=== PATIENT | male | born 1950 | race Caucasian/White ===

== ENCOUNTER 2017-09-29 04:08 | Emergency (ER) | payer OTHER, SELFPAY ==
[2017-09-29] VITALS (21 sets, daily range): BP systolic 84–145; BP diastolic 63–100; PULSE 77–133; RESP 13–106; TEMP 36.6; O2SAT 96–99; BMI 34.5
--- NOTE | 2017-09-29 04:17 | DI.RAD.S_ITS ---
PROCEDURE: XR CHEST 1V INDICATIONS: Chest pain TECHNIQUE: One view of the chest was acquired. COMPARISON: [facility], , CHEST 1 VIEW, 07/28/2017, 13:54. [facility], , CHEST 2 VIEW, 09/07/2012, 16:29. [facility], , CHEST 2 VIEW, 05/22/2009, 10:35. FINDINGS: Surgical changes and devices: Sternotomy wires, presumed prior CABG. Lungs and pleura: No pleural effusions or pneumothorax. Lungs are mildly abnormal considering reduced inspiratory volume with interstitial prominence previously present and possibly related to prior smoking. Mediastinum: Mediastinal contours appear normal. Heart size is normal. Bones and chest wall: No suspicious bony lesions. Overlying soft tissues appear unremarkable. IMPRESSION: Mild interstitial prominence, reduced inspiration, no definite pneumonia found. Prior CABG. Dictated by: Shahzad Toscano M.D. on 09/29/2017 at 9:08 Approved by: Shahzad Toscano M.D. on 09/29/2017 at 9:09
[2017-09-29] MEDS: NITROGLYCERIN 0.4 MG SL TAB SL ×2 (04:21→06:53)
--- NOTE | 2017-09-29 04:27 | ED.CHESTPAIN ---
HPI - Chest Pain General Chief Complaint: Chest Pain Stated Complaint: CHEST PAIN Time Seen by Provider: 09/29/17 04:17 Source: patient, family, RN notes reviewed and old records reviewed Mode of arrival: ambulatory Limitations: no limitations History of Present Illness HPI narrative: Patient is a 67-year-old male with known coronary artery disease presenting with chest pain. He was released from [facility] on 09/25/2017 where he was found to have nonsustained V-tach. Heart catheterization revealed occlusion of all [place] arteries and 2 venous grafts. His metoprolol was increased 25 mg twice a day an indoor was started. It was recommended that he participate in cardiac rehab for 3 months and then re-evaluation and he if no improvement may require on evaluation at [place]. This evening he woke up with severe left-sided chest pain. He denies any heart palpitations or shortness of breath. He is found to be in AFib with heart rate of 140. MD complaint: chest pain Related Data Home Medications Medication Instructions Recorded Confirmed calcipotriene-betamethasone 1 oin TP #0 03/18/11 [Taclonex] Previous Rx's Medication Instructions Recorded niacin 500 mg PO HS #30 07/07/12 finasteride 5 mg PO QDAY #90 tab 02/13/16 tamsulosin [Flomax] 0.4 mg PO QDAY #90 cap 02/13/16 sucralfate 1 gm PO ACHS #120 tab 06/26/16 lisinopril [Zestril] 10 mg PO QDAY #90 tab 07/02/17 atorvastatin 80 mg PO HS #90 tab 07/30/17 clopidogrel 75 mg PO QDAY #90 tab 07/30/17 terazosin 10 mg PO QDAY #90 cap 07/30/17 Allergies Allergy/AdvReac Type Severity Reaction Status Date / Time No Known Drug Allergies Allergy Verified 09/29/17 04:27 Review of Systems Review of Systems All systems reviewed & are unremarkable except as noted in HPI and below Constitutional Denies chills, Denies fever(s), Denies lethargy and Denies weakness Cardiovascular Reports chest pain, Denies dyspnea and Denies dyspnea on exertion Respiratory Denies cough, Denies dyspnea, Denies dyspnea on exertion and Denies wheezing Gastrointestinal Gastrointestinal: Denies abdominal pain, Denies change in bowel habits, Denies diarrhea, Denies nausea and Denies vomiting Musculoskeletal Denies back pain, Denies muscle weakness, Denies numbness and Denies tingling Neurologic Denies numbness, Denies tingling and Denies weakness Allergic/Immunologic Denies wheezing PFSH Surgical History Status post coronary artery bypass graft Status post knee surgery Status post tonsillectomy and adenoidectomy Social History Smoking Status: Current some day smoker Exam Const General: cooperative and well developed Nutritional Appearance: well nourished Orientation: alert, awake, oriented x3 and not confused [facility] Head: normocephalic and atraumatic Ears: external ears normal and TM's normal bilaterally Nose: external nose normal and No nasal discharge Face and sinus: sinuses nontender, face symmetric, no sinus tenderness and No dry mucous membranes Mouth: oral mucosae normal and moist mucous membranes Teeth and gingiva: dentition normal Throat: tonsils normal and uvula midline Resp Effort & Inspection: normal respiratory effort, able to speak in complete sentences, no respiratory distress and no use of accessory muscles Auscultation: clear to auscultation bilaterally, no rales, no rhonchi and no wheezes Cardio Rate: tachycardic Rhythm: abnormal rhythm and abnormal rhythm irregularly irregular GI Inspection: non-distended Palpation: soft, no hepatosplenomegaly, No guarding, No pulsatile mass and No tender Auscultation: normal bowel sounds Skin General: no rashes or lesions noted, No jaundice and No petechiae Neuro General: alert, oriented x3, gait normal and no focal motor deficits Cranial Nerves: CN's II-XI intact bilaterally Speech: speech normal Motor: strength 5/5 throughout Sensory Exam: no sensory deficits noted Extrem General: full ROM, no clubbing, cyanosis or edema, no pedal edema and no calf tenderness MDM - Chest Pain MDM Narrative Medical decision making narrative: Patient has known coronary artery disease with new onset atrial fibrillation, he also had mildly elevated troponin which may be from rapid rate versus coronary artery disease. He continues to have intermittent chest pain but is seemed to be associated with elevated heart rate. Dr. Hancock has graciously accepted him back at [facility]. Recommends loading with amiodarone and heparin drip for rate control. Lab Data Attestation: I reviewed the patient's lab results. Result diagrams: 09/29/17 04:25 09/29/17 04:25 Lab Results 09/29/17 09/29/17 09/29/17 Range/Units 04:25 04:25 04:25 WBC 4.9 (4.5-11.0) X10^3/uL RBC 5.33 (4.5-5.9) X10^6/uL Hgb 16.0 (13.5-17.5) g/dL Hct 47.5 (41-53) % MCV 89.2 (80-100) fL MCH 30.0 (26-34) PG MCHC 33.7 (30-36) % RDW 14.0 (11.6-14.8) % Plt Count 102 L (150-400) X10^3/uL Neut % (Auto) 42.4 L (50-75) % Lymph % (Auto) 44.4 H (25-40) % Reynolds % (Auto) 9.2 (3-14) % Eos % (Auto) 2.9 (2-4) % Baso % (Auto) 1.1 (0-2) % Neut # (Auto) 2100 L (6122-7212) /uL PT 11.5 (10.1-12.7) SECONDS INR 1.1 (0.9-1.3) APTT 31 (26.4-36.2) SECONDS Sodium 138 (137-145) mmol/L Potassium 4.7 (3.4-5.1) mmol/L Chloride 107.0 (98-107) mmol/L Carbon Dioxide 21.0 L (22-32) mmol/L BUN 25.0 H (9-20) mg/dL Creatinine 1.20 (0.66-1.25) mg/dL Estimated GFR > 60.0 (>60) mL/min BUN/Creatinine Ratio 20.8 (6-22) Glucose 125 H (80-110) mg/dL Calcium 8.7 (8.4-10.2) mg/dL Total Bilirubin 1.3 (0.2-1.3) mg/dL AST 36 (17-59) IU/L ALT 60 (21-72) IU/L Alkaline Phosphatase 42 (38-126) U/L Total Creatine Kinase 78 (55-170) U/L Troponin I 0.124 H* (0.01-0.034) ng/mL B-Natriuretic Peptide 137.0 (<100) Total Protein 6.4 (6.3-8.2) g/dL Albumin 3.7 (3.5-5.0) g/dL Globulin 2.7 (1.7-4.1) g/dL Albumin/Globulin Ratio 1.4 (1.0-2.8) Lipase 165 (23-300) U/L Imaging Data Chest x-ray: My impression: No acute cardiopulmonary process ECG Data Attestation: I personally reviewed and interpreted this ECG as follows: Prior ECG tracings: available for review Interpretation: EKG 1.: AFib with RVR rate 130 previous EKGs show sinus rhythm EKG 2. AFib rate [address] changes AFib rate [address] changes Course Orders Ordered: ED Orders 09/29/17 EKG-12 Lead Routine 09/29/17 04:17 XR chest 1V Stat EKG-12 Lead Stat 09/29/17 04:25 B Type Natriuretic Peptide Stat Complete Blood Count AUTO DIFF Stat Comprehensive Metabolic Panel Stat Lipase Stat Partial Thromboplastin Time Stat Prothrombin Time INR Stat Troponin with CK Cardiac Panel Stat Sodium Chloride (Normal Saline 0.9%) 1,000 mls @ 150 mls/hr IV CONT MANGO Last Admin: 09/29/17 04:42 Dose: 150 mls/hr Nitroglycerin (Nitrostat) 0.4 mg SL [id number] PRN PRN Reason: Chest Pain Last Admin: 09/29/17 06:53 Dose: 0.4 mg Admin: 09/29/17 04:21 Dose: 0.4 mg Discontinued Medications Aspirin (Aspirin Chew) 324 mg PO NOW ONE Stop: 09/29/17 04:18 Last Admin: 09/29/17 04:28 Dose: 324 mg Diltiazem HCl (Cardizem) 20 mg IV NOW ONE Stop: 09/29/17 04:22 Last Admin: 09/29/17 04:28 Dose: 20 mg Metoprolol Tartrate (Lopressor) 25 mg PO NOW ONE Stop: 09/29/17 07:23 Last Admin: 09/29/17 07:32 Dose: 25 mg Consultations Consultation #1: Dr. Strange, hospitalist based on patient's history recommends transferring patient to higher level of care Time: 05:46 Consultation #2: Cardiolgy Dr. Hancock has been updated patient's symptoms and test. Agrees with transfer to [facility]. Recommends talking with hospitalist Time: 06:33 Last Vital Signs Temp 97.8 F 09/29/17 04:34 Pulse 122 H 09/29/17 06:48 Resp 14 09/29/17 06:48 BP 121/77 H 09/29/17 06:48 Pulse Ox 98 09/29/17 06:48 Discharge Plan Departure Patient Disposition: [facility] Clinical Impression: Atrial fibrillation, Elevated troponin Prescriptions: No Action calcipotriene-betamethasone [Taclonex] 60 GM ointment 1 oin TP Qty: 0 RF: 0 niacin 500 MG capsule, extended release 500 mg PO HS Qty: 30 RF: 2 tamsulosin [Flomax] 0.4 MG capsule,extended release 24hr 0.4 mg PO QDAY Qty: 90 RF: 1 finasteride 5 MG tablet 5 mg PO QDAY Qty: 90 RF: 0 sucralfate 1 GM tablet 1 gm PO ACHS Qty: 120 RF: 3 lisinopril [Zestril] 10 MG tablet 10 mg PO QDAY Qty: 90 RF: 0 atorvastatin 80 MG tablet 80 mg PO HS Qty: 90 RF: 0 terazosin 10 MG capsule 10 mg PO QDAY Qty: 90 RF: 0 clopidogrel 75 MG tablet 75 mg PO QDAY Qty: 90 RF: 0
[2017-09-29] MEDS: ASPIRIN 81 MG TAB 324 MG PO (04:28)
[2017-09-29] MEDS: dilTIAZem 25 MG/5 ML SDV 20 MG IV (04:28)
[2017-09-29 04:30] LABS: Add Manual Diff / Slide Review NO; Basophils Percent Auto 1.1 % (0-2); Eosinophils Percent Auto 2.9 % (2-4); Hematocrit 47.5 % (41-53); Lymphocytes Percent Auto 44.4 % (25-40); Mean Corpuscular HGB Conc 33.7 % (30-36); Mean Corpuscular Volume 89.2 fL (80-100); Monocytes Percent Auto 9.2 % (3-14); Neutrophils Absolute Auto 2100 /uL (3000-5900); Neutrophils Percent Auto 42.4 % (50-75); Platelet Count 102 X10^3/uL (150-400); Red Blood Cell Count 5.33 X10^6/uL (4.5-5.9); White Blood Cell Count 4.9 X10^3/uL (4.5-11.0)
[2017-09-29 04:35] LABS: INR 1.1 (0.9-1.3); Prothrombin Time 11.5 SECONDS (10.1-12.7)
[2017-09-29 04:37] LABS: PTT Partial Thromboplastin Tim 31 SECONDS (26.4-36.2)
[2017-09-29 04:39] LABS: Alanine Aminotransferase 60 IU/L (21-72); Albumin 3.7 g/dL (3.5-5.0); Albumin Globulin Ratio 1.4 (1.0-2.8); Alkaline Phosphatase 42 U/L (38-126); Aspartate Aminotransferase 36 IU/L (17-59); BUN Creatinine Ratio 20.8 (6-22); Bilirubin Total 1.3 mg/dL (0.2-1.3); Calcium 8.7 mg/dL (8.4-10.2); Creatine Kinase 78 U/L (55-170); Estimated Glomerular Filt Rate > 60.0 mL/min (>60); Globulin 2.7 g/dL (1.7-4.1); Glucose 125 mg/dL (80-110); HEMOLYSIS 42 (0-50); Lipase 165 U/L (23-300); Potassium 4.7 mmol/L (3.4-5.1); Sodium 138 mmol/L (137-145); Total Protein 6.4 g/dL (6.3-8.2)
[2017-09-29] MEDS: SODIUM CHLORIDE 0.9% 1,000 ML 150 ML IV (04:42)
[2017-09-29 05:13] LABS: Troponin I 0.124 ng/mL (0.01-0.034)
[2017-09-29] MEDS: METOPROLOL 25 MG TABLET PO (07:32)
--- NOTE | 2017-09-29 07:57 | PC.NURSE ---
S/W MINOR Kirby SUP. at [facility]. There is a room and Hospitalist will call for dr to when out of daily meeting. Expl PT was just DC'D from their Hosp Wednesday and hospitalist will have information on this PT.
[2017-09-29] MEDS: HEPARIN DRIP 25,000 UNIT/500 ML IV.SOLN 27.76 UNIT IV (08:14)
[2017-09-29] MEDS: AMIODARONE 150 MG/100 ML PIGGYBACK 600 MG IV (08:14)
[2017-09-29] MEDS: MORPHINE 4 MG/ML INJ IV (08:19)
--- NOTE | 2017-09-29 08:42 | PC.NURSE ---
PT with is called and updated by Vargas.
--- NOTE | 2017-09-29 10:53 | PC.NURSE ---
Attempt to call report to Mandeep at [facility]. They will return call and were made aware that PT was close to being en route
== END 2017-09-29 11:08 | disposition short-term general hospital (02) ==
PROVIDERS: Emergency Provider Emergency Medicine; Family Provider Family Medicine; PCP Family Medicine
DX: I48.91 Unspecified atrial fibrillation (principal); R74.8 Abnormal levels of other serum enzymes
CPT/HCPCS: 36591; 71045; 80053; 82550; 82553; 83690; 83880; 84484; 85025; 85610; 85730; 93005; 93041; 99285; J0282; J1644; J2270

== ENCOUNTER → 2017-10-20 12:34 | Outpatient (CLI) | payer OTHER, SELFPAY ==
--- NOTE | 2017-10-26 09:21 | PM.PFT.1 ---
Pulmonary Function Test Referral & Results Date Patient Seen: 10/20/17 Requesting provider: Macho Vicente Results: The spirometry demonstrates an FVC of 4.61 L which is 94% of predicted. The FEV1 was measured at 3.71 L which is 101% of predicted. The FEV1/FVC ratio was 80 which is 108% of predicted. No bronchodilator was administered Lung volumes show an SVC of 4.80 L which is 97% of predicted. The diffusing capacity was measured at 28.98 which is 82% of predicted. The maximum voluntary ventilation was normal. Interpretation: Patient's spirometry is normal There may be a minimal reduction in diffusing capacity, although this may also be considered normal. Clinical correlation suggested
== END ==
PROVIDERS: Family Provider Family Medicine; PCP Family Medicine; Visit Provider Internal Medicine Cardiovascular Disease
DX: R06.09 Other forms of dyspnea (principal)
CPT/HCPCS: 94010; 94726; 94729

== ENCOUNTER 2017-12-22 08:58 | Day surgery (SDC) | payer OTHER, SELFPAY ==
--- NOTE | 2017-12-22 | PATH_ITS ---
[facility] Accession Number: [id number] . 01 Material submitted: . PART A: ASCENDING COLON POLYPS PART B: TRANSVERSE COLON POLYPS PART C: LEFT COLON POLYP PART D: SIGMOID COLON POLYP . 02 Diagnosis: A. Ascending Colon Polyps: Fragment of tubular adenoma and fragments of colonic mucosa with no diagnostic abnormality. . B. Transverse Colon Polyps: Fragments of tubular adenoma and fragment of colonic mucosa with no diagnostic abnormality. . C. Left Colon Polyp: Colonic mucosa with no diagnostic abnormality, consistent with polypoid redundancy. Negative for serrated lesion, dysplasia or malignancy. . D. Sigmoid Colon Polyp: Hyperplastic polyp. [facility]/12/23/2017 . 02 Electronically signed: . Dioni Lora MD, PhD, Pathologist NPI- [id number] . 01 Gross description: . Received four formalin-filled containers, each labeled with the patient's name: . A. In a container labeled ascending colon polyp, the specimen consists of four 0.1-0.3 cm portions of tissue, entirely submitted in cassette A. B. In a container labeled transverse colon polyps, the specimen consists of three 0.1-0.3 cm portions of tissue, entirely submitted in cassette B. C. In a container labeled left colon polyp, the specimen consists of a 0.1 cm portion of tissue, entirely submitted in cassette C. D. In a container labeled sigmoid colon polyp, the specimen consists of a 0.3 cm portion of tissue, entirely submitted in cassette D. ([id number]) /FRR . 02 Pathologist provided ICD-10: D12.2, D12.3, K63.5 . 02 CPT . 955837, 463642, 529343, 850406 Performed at: [address] [place] [address] [place] [address], [place], [place] [id number] MD Arias Ngo MD Phone: [phone] Performed at: [address] [facility] [address] [place], [place] [id number] MD Simone Holman MD Phone: [phone]
[2017-12-22 09:20] VITALS: BP 105/77; PULSE 90; RESP 16; TEMP 36.2; O2SAT 96; BMI 34.7
[2017-12-22] MEDS: SODIUM CHLORIDE 0.9% 1,000 ML 21 ML IV (09:20)
--- NOTE | 2017-12-22 10:12 | PM.HP.1 ---
History of Present Illness Date Patient Seen: 12/22/17 Time Patient Seen: 10:12 Chief complaint: colonoscopy [id number] [phone] Narrative: Mr. Flaherty is a 67-year-old male who presented for evaluation prior to colorectal cancer screening. He has a history of severe coronary artery disease with atrial fibrillation with a rapid ventricular response and a history of coronary artery disease status post coronary bypass grafting with a history of unstable angina. He has had his medications adjusted is doing better. Due to his history we decided to do a: Garde test which was positive and therefore now colonoscopies being performed. He has had no further chest pain since his admissions in September. Dr. Vicente as given clearance for him to go off his Eliquis. It has also been suggested he go off his aspirin. Both of these been held for at least 2 days. Patient History Medical History Coronary artery disease involving lummi coronary artery of lummi heart without angina pectoris (Chronic 12/02/15) Essential hypertension (Chronic 12/02/15) Pure hypercholesterolemia (Chronic 12/02/15) Carotid artery disease (Chronic Unknown) Disc degeneration (Chronic ~2003) History of diverticulitis (Chronic Unknown) Hyperlipidemia (Chronic Unknown) Hypertension (Chronic Unknown) Nephrolithiasis (Chronic Unknown) Psoriasis (Chronic Unknown) Atrial fibrillation (Inactive) Surgical History Status post coronary artery bypass graft Status post knee surgery Status post tonsillectomy and adenoidectomy Family & Social History Social History: household members spouse Tobacco & Substance use: Smoking Status Former smoker Substance Use Type marijuana Meds Home Medications Medication Instructions Recorded Confirmed Type calcipotriene-betamethasone 1 oin TP PRN PRN #0 03/18/11 12/22/17 History [Taclonex] niacin 500 mg PO HS #30 07/07/12 12/22/17 Rx finasteride 5 mg PO QDAY #90 tab 02/13/16 12/22/17 Rx tamsulosin [Flomax] 0.4 mg PO QDAY #90 cap 02/13/16 12/22/17 Rx atorvastatin 80 mg PO DAILY 09/29/17 12/22/17 History docusate sodium 100 mg PO BID 09/29/17 12/22/17 History isosorbide mononitrate 30 mg PO DAILY 09/29/17 12/22/17 History nicotine 21 mg TOPICAL DAILY 09/29/17 12/22/17 History terazosin 10 mg PO QHS 09/29/17 12/22/17 History triamcinolone acetonide 1 applic TOPICAL PRN PRN 09/29/17 12/22/17 History metoprolol succinate ER 25 mg 25 mg PO DAILY #90 tab 10/05/17 12/22/17 Rx tablet,extended release 24 hr sucralfate 1 gram tablet 1 gram PO TID #90 tab 10/15/17 12/22/17 Rx lisinopril 10 mg tablet 10 mg PO DAILY #30 tab 11/26/17 12/22/17 Rx Allergies Allergy/AdvReac Type Severity Reaction Status Date / Time No Known Drug Allergies Allergy Verified 12/22/17 09:19 Exam Vital Signs (past 8 hours): - 12/22/17 09:20 Temperature 97.2 F L Pulse Rate 90 Respiratory Rate 16 Blood Pressure 105/77 Pulse Oximetry 96 Oxygen Delivery Method Room Air Assessment & Plan Plan: Assessment/Plan Narrative: Assessment History of severe coronary artery disease with positive Cologuard test. Need for colonoscopy I have told him his that he has had a significant we increased risk for colonoscopy with given his underlying issues but we can't ignore the Cologuard test either. He will therefore a colonoscopy performed today. Risks, benefits, alternatives have been explained. I told him that if he is having a very difficult colonoscopy I would probably not push through given the possibility of causing a arrhythmia or hypotension.
--- NOTE | 2017-12-22 10:17 | P.HP_ITS ---
History of Present Illness Date Patient Seen: 12/22/17 Time Patient Seen: 10:12 Chief complaint: colonoscopy [id number] [phone] Narrative: Mr. Flaherty is a 67-year-old male who presented for evaluation prior to colorectal cancer screening. He has a history of severe coronary artery disease with atrial fibrillation with a rapid ventricular response and a history of coronary artery disease status post coronary bypass grafting with a history of unstable angina. He has had his medications adjusted is doing better. Due to his history we decided to do a: Garde test which was positive and therefore now colonoscopies being performed. He has had no further chest pain since his admissions in September. Dr. Vicente as given clearance for him to go off his Eliquis. It has also been suggested he go off his aspirin. Both of these been held for at least 2 days. Patient History Medical History Coronary artery disease involving wainwright coronary artery of wainwright heart without angina pectoris (Chronic 12/02/15) Essential hypertension (Chronic 12/02/15) Pure hypercholesterolemia (Chronic 12/02/15) Carotid artery disease (Chronic Unknown) Disc degeneration (Chronic ~2003) History of diverticulitis (Chronic Unknown) Hyperlipidemia (Chronic Unknown) Hypertension (Chronic Unknown) Nephrolithiasis (Chronic Unknown) Psoriasis (Chronic Unknown) Atrial fibrillation (Inactive) Surgical History Status post coronary artery bypass graft Status post knee surgery Status post tonsillectomy and adenoidectomy Family & Social History Social History: household members spouse Tobacco & Substance use: Smoking Status Former smoker Substance Use Type marijuana Meds Home Medications Medication Instructions Recorded Confirmed Type calcipotriene-betamethasone 1 oin TP PRN PRN #0 03/18/11 12/22/17 History [Taclonex] niacin 500 mg PO HS #30 07/07/12 12/22/17 Rx finasteride 5 mg PO QDAY #90 tab 02/13/16 12/22/17 Rx tamsulosin [Flomax] 0.4 mg PO QDAY #90 cap 02/13/16 12/22/17 Rx atorvastatin 80 mg PO DAILY 09/29/17 12/22/17 History docusate sodium 100 mg PO BID 09/29/17 12/22/17 History isosorbide mononitrate 30 mg PO DAILY 09/29/17 12/22/17 History nicotine 21 mg TOPICAL DAILY 09/29/17 12/22/17 History terazosin 10 mg PO QHS 09/29/17 12/22/17 History triamcinolone acetonide 1 applic TOPICAL PRN PRN 09/29/17 12/22/17 History metoprolol succinate ER 25 mg 25 mg PO DAILY #90 tab 10/05/17 12/22/17 Rx tablet,extended release 24 hr sucralfate 1 gram tablet 1 gram PO TID #90 tab 10/15/17 12/22/17 Rx lisinopril 10 mg tablet 10 mg PO DAILY #30 tab 11/26/17 12/22/17 Rx Allergies Allergy/AdvReac Type Severity Reaction Status Date / Time No Known Drug Allergies Allergy Verified 12/22/17 09:19 Exam Vital Signs (past 8 hours): - 12/22/17 09:20 Temperature 97.2 F L Pulse Rate 90 Respiratory Rate 16 Blood Pressure 105/77 Pulse Oximetry 96 Oxygen Delivery Method Room Air Assessment & Plan Plan: Assessment/Plan Narrative: Assessment History of severe coronary artery disease with positive Cologuard test. Need for colonoscopy I have told him his that he has had a significant we increased risk for colonoscopy with given his underlying issues but we can't ignore the Cologuard test either. He will therefore a colonoscopy performed today. Risks, benefits , alternatives have been explained. I told him that if he is having a very difficult colonoscopy I would probably not push through given the possibility of causing a arrhythmia or hypotension.
--- NOTE | 2017-12-22 10:38 | PM.OP.ENDO ---
Operative Date/Time/Diagnoses Date of procedure: 12/22/17 Time of procedure: 10:38 Pre-op diagnosis: See indication Procedure & Clinicians Study performed: Colonoscopy Same procedure as scheduled: Yes Indications: Cologuard positive Surgeon: Marc Campos Procedure Notes Procedure in detail: After informed consent was obtained the patient was placed in the left lateral decubitus position. The video colonoscope was introduced the rectum and slowly advanced to the cecum. Preparation was good. On slow withdrawal mucosa was carefully examined. Scope was removed. The patient tolerated the procedure well. Blood loss none. Of note was there was minimal bleeding with any biopsy or snare of polyps. Complications none Sedation Fentanyl 100 mcg Versed 5 mg IV titration Total sedation time 17 min Findings 1. Two 4-5 mm polyps were seen in the ascending colon. Both were Jumbo biopsied removed completely. 2. Three 3-5 mm polyps were seen in the transverse colon. All were Jumbo biopsied and removed completely 3. One polyp was seen in the left colon. This was 3 mm. This was Jumbo biopsied and removed completely. 4. One 8 mm sessile polyp was seen in the sigmoid colon which was cold snared and removed completely. 5. Extensive diverticulosis particularly in the sigmoid We will be in touch with Mr. Flaherty regarding has pathology but most likely will need follow-up studies in 3 years. Has concerns his anticoagulation I would restart him on aspirin immediately but have him hold his Eliquis for 4-5 days. Scope withdrawal time: Six Sedation minutes: 17
[2017-12-22] MEDS: fentaNYL 250 MCG/5 ML INJ IV (10:39)
[2017-12-22] MEDS: MIDAZOLAM 5 MG/5 ML VIAL IV (10:40)
[2017-12-22 10:45] VITALS: BP 106/70; PULSE 69; RESP 14; TEMP 36.4; O2SAT 96
[2017-12-22 10:56] VITALS: BP 108/71; PULSE 66; RESP 16; TEMP 36.2; O2SAT 96
--- NOTE | 2017-12-22 11:31 | P.OP.ENDO_ITS ---
Operative Date/Time/Diagnoses Date of procedure: 12/22/17 Time of procedure: 11:27 Pre-op diagnosis: See indications Procedure & Clinicians Study performed: Colonoscopy Same procedure as scheduled: Yes Indications: Positive fit test, personal history of colon polyps Surgeon: Marc Campos Procedure Notes Procedure in detail: After informed consent was obtained the patient was placed in the left lateral decubitus position. The video colonoscope was introduced to the rectum and slowly advanced to the cecum. On slow withdrawal mucosa was carefully examined. Scope was removed and the patient tolerated the procedure well Blood loss none Complications none Sedation Versed 7 mg fentanyl 100 mcg Total sedation time 20 min Findings 1. 1 cm polyp at the cecal rim opposite the IC valve. Due to its sessile nature was injected with 2 cc of normal saline and raised prior to hot snare polypectomy. It was felt the areas removed completely though the margins were indistinct. Specimen was retrieved. 2. 2 cm mostly sessile polyp in the mid ascending colon. This was injected with 2 cc of normal saline to raise the base and then a hot snare polypectomy was performed in 2 pieces. The pieces were retrieved. The base was injected with 1 cc of spot. 3. Extensive diverticulosis particularly in the sigmoid colon 4. Otherwise negative colonoscopy to cecum Will await pathology results but Mr. Flaherty will almost certainly need follow- up colonoscopy in 6 months to evaluate the base of these larger polyps particularly the 1 in the mid ascending colon that has the tattoo. Further recommendations will follow. All
== END 2017-12-22 11:06 | disposition home or self-care (01) ==
PROVIDERS: Family Provider Family Medicine; PCP Family Medicine; Visit Provider Internal Medicine Gastroenterology
PROC: 0DJD8ZZ Inspection of Lower Intestinal Tract, Via Natural or Artificial Opening Endoscopic (ICD-10-PCS; CPT 45378; principal; 2017-12-22 10:00)
DX: K57.30 Diverticulosis of large intestine without perforation or abscess without bleeding (principal); I25.10 Atherosclerotic heart disease of native coronary artery without angina pectoris; I48.91 Unspecified atrial fibrillation; Z79.01 Long term (current) use of anticoagulants; D12.2 Benign neoplasm of ascending colon; D12.5 Benign neoplasm of sigmoid colon; K63.5 Polyp of colon
CPT/HCPCS: 45385; 45380; J2250; J3010

== ENCOUNTER → 2018-01-03 08:38 | Outpatient (CLI) | payer OTHER, SELFPAY ==
[2018-01-03 10:28] LABS: Alanine Aminotransferase 37 IU/L (21-72); Albumin 4.1 g/dL (3.5-5.0); Albumin Globulin Ratio 1.4 (1.0-2.8); Alkaline Phosphatase 42 U/L (38-126); Aspartate Aminotransferase 30 IU/L (17-59); BUN Creatinine Ratio 14.3 (6-22); Blood Urea Nitrogen 20 mg/dL (9-20); Calcium 9.5 mg/dL (8.4-10.2); Carbon Dioxide 27 mmol/L (22-32); Chloride 104 mmol/L (98-107); Estimated Glomerular Filt Rate 50.7 mL/min (>60); Globulin 2.9 g/dL (1.7-4.1); Glucose 120 mg/dL (80-110); HEMOLYSIS 24 (0-50); Potassium 4.6 mmol/L (3.4-5.1); Sodium 140 mmol/L (137-145)
[2018-01-03 10:55] LABS: Thyroid Stimulating Hormone 1.79 uIU/mL (0.47-4.68)
== END ==
PROVIDERS: Family Provider Family Medicine; PCP Family Medicine; Visit Provider Internal Medicine Cardiovascular Disease
DX: I48.0 Paroxysmal atrial fibrillation (principal); Z79.899 Other long term (current) drug therapy
CPT/HCPCS: 36415; 80053; 84443

== ENCOUNTER 2018-02-24 11:30 | Outpatient (RCR) | payer OTHER, SELFPAY ==
[2017-11-09 11:45] VITALS: BP 102/64; BP 106/62; BMI 35.2
--- NOTE | 2017-11-09 13:42 | CR.IEVALNOTE ---
10/14/17 unstable angina/cad/cabg hx 2002 with failed bypass 2 of 3 vessels CR Initial Assessment Report CR Cardiac Rehab Initial Assessment Start: 11/09/17 11:38 Freq: Status: Active Protocol: Document 11/09/17 11:45 CHERYLE (Rec: 11/09/17 12:09 CHERYLE [id number]) Cardiac Rehabilitation Exercise Risk Risk High % 40-45% 09/24/17 EF Comment: During stress test had non- prolonged v-tach run. Went into a-fib after. Subsequent cath revealed 2/3 previous bypasses had failed and there is widespread CAD. AICD No Pacemaker No Heart Rhythm Currently sr Left Arm Blood Pressure (90/60-120/80 mmHg) 106/62 Blood Pressure Method Manual Cuff/Auscultation Blood Pressure Position Sitting Right Arm Blood Pressure (90/60-120/80 mmHg) 102/64 Blood Pressure Method Manual Cuff/Auscultation Blood Pressure Position Sitting Bilateral Resting Heart Rate: 59 Pulse Assessment Method Pulse Ox/Monitor Cardiac Rehabilitation Exercise Fall Risk History of Falling (Immediate or No Previous) Secondary Diagnosis (More Than 2 Medical Yes Diagnoses) Ambulatory Aid None/bed rest/nurse assist IV/Heparin Lock No Gait/Transferring Normal/bedrest/immobile Mental Status Oriented to own ability Score Total 15 Risk Level Low Fall Risk Action Implement [place] Fall Risk Precautions Assistive Devices None Cardiac Rehabilitation Nutrition Evaluation Recent Lipid Blood Test Yes Date Blood Test Drawn 09/22/17 Total Cholesterol 170 Triglycerides 191 HDL 38 LDL 94 Lipid Medications Yes: crestor 40mg Goal for Lipids Decrease triglycerides, increase HDL Lipids Comment pt thinks med was recently changed History of Diabetes No Cardiac Rehabilitation Weight Management Plan Height 182.88 cm Weight 117.934 kg Body Mass Index (BMI) 35.2 Girth Measurement (in inches) (cm) 47.75 Patient Goal(s) Lose 1-2 of Girth Lose 5-10 lbs Body Weight BMI Goal of 19-25 Vitamins & Supplements No Use Rarely Amount Rarely Nutrition Evaluation Referral to Diabetes Education No Nurse/Patient Discussion Yes Patient Following Diet Plan No Patient's Nutritional Goals Continue healthier eating. Daughter has been harping on him about snacking and he states he has reduced processed foods. Education Primary Language [place] Hearing Ability Normal Education on Intake Chest Pain Short of Breath Headache Lightheaded or Dizzy Musculoskeletal Pain General Malaise Tobacco Use Former, Quit <6 Months Goal/Quit Date 09/15/17 Pack Per-Day History 1.5ppd x 40 years Tobacco Use History Discussion Ask Assess Advise Assist Tobacco Type Used cigarettes CR Smokeless Tobacco No Environmental Exposure at work, dust and asbestos Referred to Smoking Cessation Class No: is using the nicotine patch and is doing well CR Individual Education & Counseling Yes Educational Class Schedule Given No Hx Hypertension Yes Goal at goal Medications lisinopril, metoprolol Goal of BP <130/80 Yes HTN Education Discussion discussed effects of exercise on bp Medications Reconciled Yes CR Psychosocial Evaluation Goal wants to stick around to watch [employer] graduate HS Identifies Stressors heart Psych Consult No Discussion with Patient Yes Psychotropic Medications No PHQ9 Score 1 HQ Scoring Scale 0-4 = None PHQ >9 No PCP Notified No Comment says he's good....doesn't feel the need to stress about things Positive Support and family Situation at home with and father in law Marital Status Employment Status Retired Occupation / Employer Yes: [employer] Ready for Change Number 14 CR Psychosocial Eval Continued Sternotomy Incision n/a (old from 2002) Graft Site & Incision n/a Heart Murmur none auscultated Lung Sounds clear Edema none noted on intake. states some right ankle swelling occasionally Stress Management Class Yes Heart Disease & Emotion Film Yes Readiness Cooperative Patient's Story hx cabg x 3 2002. was having CP and went to ED. Re did echo and stress test and had non-prolonged VT run on TM. Hx afib after as well. Cath showed severe vessel disease and failure of 2 of 3 bypasses . Not surgically optimal so referred to CR for unstable angina Treatment Prescribed for Individual Yes Needs No Treatment Change Yes: Please Continue with Cardiopulmonary Rehabilitation as Ordered Date 11/09/17 Document 11/09/17 13:04 AA (Rec: 11/09/17 13:18 AA [id number]) Cardiac Rehabilitation Exercise Fall Risk Comment Blue Physioball with saucer against rail Bond Activity Status Index 7.59 Home Exercise No Mode Comment: yard work Duration Comment: 15min Frequency Comment: 2-2x/wk Symptoms: Abnormal Gait Back Pain Difficulty Walking Joint Pain Limited Range of Motion Muscle Cramps Muscle Weakness Radiating Pain into Limb Body Alignment Posture Forward Head Leaning Orthotic/Prosthetic Devices or Brace: No Comment PAD Exercise TM METS 3.95 Angina with Exercise 1 Exercise Tolerance Good Additional Comment L calf cramping and PAD pain limiting factor CR Pre Exercise Evaluation Orientation Self Pulse Check HAILEY PRE Scale Exercise Safety Equipment Orientation Warm Up/Cool Down Patient Short-term Goal(s) To be able to complete house work and home improvement projects in 6 weeks, by increasing stamina, endurance and balance/stability. Patient Prison Goal(s) Increase core strength, endurance and stamina to be able to complete 20 mins on TM 5x/wk at home, implement home exercise program in 12 weeks through CR. CR Exercises Prescription Exercise Duration (minutes) 20 METs (resistance level) 4 Frequency 2s/wk RPE 11-14 Exercise Duration (minutes) 20 METs (resistance level) 4 Frequency 2x/wk RPE 11-14 Comment tolerates incline over speed Pounds 5 Number of Reps 12 Number of Sets 2 Frequency 1x/wk RPE 11-15 Band Resistance 4 Number of Reps 12 Number of Sets 1 Exercise Tolerance Good Frequency 1x/wk RPE 11-15
[2017-12-08 15:47] VITALS: BP 118/62; RESP 16
--- NOTE | 2017-12-08 16:08 | CR.REVALNOTE ---
CR RE Assessment Report 10.14.17 UNSTABLE ANGINA, CABG 2002, FAILED BYPASS CR Cardiac Rehab Re-Assessment Start: 12/08/17 15:47 Freq: Status: Active Protocol: Document 12/08/17 15:47 [facility] (Rec: 12/08/17 15:56 [facility] [id number]) Cardiac Rehab Exercise Risk Re-Eval Dx: 10.14. UNSTABLE ANGINIA,CABG 2002, FAILED BYPASS Risk High Heart Rhythm NSR Left Arm Blood Pressure (90/60-120/80 mmHg) 118/62 Bilateral Resting Heart Rate: 68 Target Heart Rate: 119 Respiratory Rate (12-24 breaths/min) 16 Angina with Exercise NO Cardiac Rehab Nutrition Re-Eval Lipids Re-Drawn No History of Diabetes No Weight 117.934 kg Progress to Weight Goal NO PROGRESS. NOT AT A TIME FOR CHANGE Dietary Consult Yes Nurse/Patient Discussion Yes Nutrition Class Yes Dietary Goal verbalized by Patient WEIGHT LOSS BUT HE IS NOT SPECIFIC ON HOW HE WANTS TO Education Hypertension 118/62 Medications LISINOPRIL 10MG Education:Instruct ZULY REVIEWED DASH DIET Medication Reconciled DONE CR Psychosocial Re-Evaluation Progress to Goal PROGRESSING SLOWLY TO INCREASE METS WHICH MAKES HIM FEEL BETTER Stress Managed YES WITH FAMILY Psych Consult No Uses Stress Management Skills Yes Coping Techniques Yes Relaxation Techniques Yes Positive Support HIS FAMILY CR Psychosocial Provider Eval Treatment Prescribed for Individual Yes Needs No Treatment Change Yes: Please Continue with Cardiopulmonary Rehabilitation as Ordered Date 12/08/17 Document 12/08/17 15:58 AA (Rec: 12/08/17 16:05 AA [id number]) CR Lifestyle Re-Assessment Home Exercise Yes Mode Comment TM Walking Duration Comment 20 min Frequency Comment 4x/wk Achieved Exercise Re-Evaluation BioDex MET Goal 2.86 TM MET Goal 7.21 RPE 12 Weights 5 Bands 4 Equipment Goals TM 8.0 BD 3.5 Number/Value 6 LVL 5 Progress to Goal INCREASE TOLERATED % Improvement TM 101% BD 56% Short Term Goal acheived. Completed privacy fence project, pressure washed and painted. Will continue to do house and yard work. Half-Way Goal acheived. Is walking 20- 30 mins at home on TM on non CR days. Will continue to increase strength and endurance.
--- NOTE | 2017-12-16 14:11 | CR.EDUC ---
Current Diagnoses Presence of aortocoronary bypass graft (2002) Stable anginia Past Medical History (Last Reviewed 10/05/17 @ 09:30 by Chepe Smith MD) Coronary artery disease involving [place] coronary artery of [place] heart without angina pectoris (Chronic 12/02/15) Essential hypertension (Chronic 12/02/15) Pure hypercholesterolemia (Chronic 12/02/15) Carotid artery disease (Chronic Unknown) Disc degeneration (Chronic ~2003) History of diverticulitis (Chronic Unknown) Hyperlipidemia (Chronic Unknown) Hypertension (Chronic Unknown) Nephrolithiasis (Chronic Unknown) Psoriasis (Chronic Unknown) Atrial fibrillation (Inactive) Provider Summary Visit Care Team Role Provider Type Chepe Smith MD Family Provider Physician Primary Care Provider Specialty: Family Practice Address: [facility] [place], [address] Email: [email or web address] Richard Napoles MD Attending Provider Physician Specialty: Cardiology Address: [address] [place] [address], [id number] Email: CR Education Report CR Education Start: 11/09/17 11:38 Freq: Status: Active Protocol: Document 11/15/17 13:31 JCP (Rec: 11/15/17 13:32 JCP [id number]) CR EDUCATION Education FIRST FULL DAY IN CR. TOLERATED WELL. C/O PAIN IN CALF WHILE ON THE TM. STATES THIS IS ALSO A PROBLEM MOST DAYS. + FOR PAD. Document 11/24/17 13:37 CHERYLE (Rec: 11/24/17 13:38 CHERYLE [id number]) CR EDUCATION Education mrsa with cesar Document 11/25/17 15:59 CHERYLE (Rec: 11/25/17 16:06 CHERYLE [id number]) CR EDUCATION Education Pt is Dr. Vicente's pt and ended up finding this out later and spoke to Dr. Vicente directly. He wants pt to up isosorbide to 60mg QD. Ended up speaking to FLOWER Campoverde later and advised that I would call and notify patient. Spoke to Walter and advised him of the medication change and why it was being changed. He will start the new dose in the morning and knows to slow down should he get chest pain again. We advised that 3/10 should be the max and that we should be told immediately when it starts. Document 12/01/17 15:39 JC (Rec: 12/01/17 15:39 [facility] [id number]) CR EDUCATION Education ANTI INFLAMMATORY FOODS AND MEDITATION Document 12/08/17 12:04 JCP (Rec: 12/08/17 12:04 [facility] [id number]) CR EDUCATION Education MET WITH [address]
[2018-01-05 15:57] VITALS: BP 126/62
[2018-02-03 15:29] VITALS: BP 112/68
== END 2018-02-25 13:04 ==
LOC: CAR 11:30
PROVIDERS: Family Provider Family Medicine; PCP Family Medicine; Visit Provider Internal Medicine Interventional Cardiology
DX: Z95.1 Presence of aortocoronary bypass graft (principal)
CPT/HCPCS: 93798

== ENCOUNTER 2018-02-28 01:34 | Emergency (ER) | payer OTHER, SELFPAY ==
[2018-02-28 01:44] VITALS: BP 145/94; PULSE 75; RESP 16; TEMP 36.5; O2SAT 97; BMI 34.2
--- NOTE | 2018-02-28 01:57 | DI.RAD.S_ITS ---
PROCEDURE: XR CHEST 1V INDICATIONS: chest pain TECHNIQUE: One view of the chest was acquired. COMPARISON: [facility], , XR CHEST 1V, 09/29/2017, 4:30. [facility], CR, CHEST 1 VIEW, 07/28/2017, 13:54. [facility], CR, CHEST 2 VIEW, 09/07/2012, 16:29. FINDINGS: Surgical changes and devices: Sternotomy wires, reduced inspiratory volume Lungs and pleura: No pleural effusions or pneumothorax. Lungs are abnormal with a chronic interstitial prominence. Mediastinum: Mediastinal contours appear normal. Heart size is at the upper limits of normal. Bones and chest wall: No suspicious bony lesions. Bilateral acromioplasty is previously present. Overlying soft tissues appear unremarkable. IMPRESSION: Heart size at upper limits of normal but the inspiratory volume is reduced and the patient is somewhat lordotic in positioning. Sternotomy wires, presumed prior CABG, chronic interstitial prominence. Overall a definite acute source of chest pain is not seen. Dictated by: Shahzad Toscano M.D. on 02/28/2018 at 8:18 Approved by: Shahzad Toscano M.D. on 02/28/2018 at 8:19
[2018-02-28 02:14] VITALS: BP 122/87; PULSE 66
[2018-02-28] MEDS: NITROGLYCERIN 0.4 MG SL TAB SL (02:14)
--- NOTE | 2018-02-28 02:16 | ED_ITS ---
HPI - Chest Pain General Chief Complaint: Chest Pain Stated Complaint: chest pain Time Seen by Provider: 02/28/18 01:57 Source: patient Mode of arrival: ambulatory Limitations: no limitations History of Present Illness HPI narrative: The patient is a 67-year-old male with history of coronary artery disease and triple bypass presenting with left-sided chest pain. He actually thought that it was acid reflux at this evening. He had 3 pieces of pizza the pain radiated from his abdomen to his left shoulder. He has not noted any increased pain with movement or difficulty breathing or nausea. He has been belching. He took A nitro at home and the pain decreased significantly. He still does have some mild pain. According the [facility] records he underwent a cardiac catheterization on 2017 which revealed occlusion of the both vein grafts to the posterior lateral and PDA. He has 80% left main stenosis with complete occlusion of the LAD after 1st septal branch and complete occlusion of the left circumflex and RCA. The CHINO was widely patent with left to right collaterals. He was thought to be high risk for repeat his CABG and recommended medical management only and less he became symptomatic MD complaint: chest pain Treatments prior to arrival chest pain: nitroglycerin Related Data Home Medications Medication Instructions Recorded Confirmed calcipotriene-betamethasone 1 oin TP PRN PRN #0 03/18/11 12/22/17 [Taclonex] atorvastatin 80 mg PO DAILY 09/29/17 12/22/17 docusate sodium 100 mg PO BID 09/29/17 12/22/17 isosorbide mononitrate 30 mg PO DAILY 09/29/17 12/22/17 nicotine 21 mg TOPICAL DAILY 09/29/17 12/22/17 terazosin 10 mg PO QHS 09/29/17 12/22/17 triamcinolone acetonide 1 applic TOPICAL PRN PRN 09/29/17 12/22/17 Previous Rx's Medication Instructions Recorded niacin 500 mg PO HS #30 07/07/12 finasteride 5 mg PO QDAY #90 tab 02/13/16 tamsulosin [Flomax] 0.4 mg PO QDAY #90 cap 02/13/16 metoprolol succinate ER 25 mg 25 mg PO DAILY #90 tab 10/05/17 tablet,extended release 24 hr sucralfate 1 gram tablet 1 gram PO TID #90 tab 10/15/17 lisinopril 10 mg tablet 10 mg PO DAILY #30 tab 01/31/18 Allergies Allergy/AdvReac Type Severity Reaction Status Date / Time No Known Drug Allergies Allergy Verified 12/22/17 09:19 Review of Systems Review of Systems GENERAL: Denies chills, fatigue, malaise, fever, sweats, travel HEENT: Denies sinus pain, ear pain, sore throat, difficulty swallowing, neck pain RESPIRATORY: Denies dyspnea, cough, wheezing, hemoptysis, sputum. CARDIOVASCULAR: See HPI GASTROINTESTINAL: Denies nausea, vomiting, abdominal pain, diarrhea, constipation, melena. : Denies dysuria, frequency, incontinence, hematuria, urinary retention, flank pain. MUSCULOSKELETAL: Denies weakness, joint pain, or bony pain SKIN: No rash, no erythema, no pruritus NEUROLOGIC: Denies weakness, dizziness, headache, numbness, change in speech, confusion PSYCHIATRIC: No concerning psychosocial issues. 12 point review of systems is negative except for those stated above and HPI [facility] Social History household members: spouse Smoking Status: Former smoker Exam Initial Vital Signs Initial Vital Signs: Vital Signs Temperature 97.7 F 02/28/18 01:44 Pulse Rate 75 02/28/18 01:44 Respiratory Rate 16 02/28/18 01:44 Blood Pressure 145/94 H 02/28/18 01:44 Pulse Oximetry 97 02/28/18 01:44 GENERAL: Alert overweight male in no acute distress HEENT: Head atraumatic,EOMI, pupils reactive, face symmetric CARDIOVASCULAR: Regular rate and rhythm without murmurs, rubs or gallops. RESPIRATORY: Breath sounds equal bilaterally, no wheezes rales or rhonchi. ABDOMEN: Soft, nontender. Normoactive bowel sounds all 4 quadrants. No guarding or rebound. EXTREMITIES: Normal range of motion, no clubbing or edema. Neurovascularly intact NEUROLOGICAL: Alert and oriented x4.Normal gait and speech. Cranial nerves II through XII grossly intact. SKIN: Warm, dry, no laceration, no petechiae, no rashes or lesions. Course Orders Ordered: ED Orders 02/28/18 EKG-12 Lead Routine EKG-12 Lead Routine 02/28/18 01:57 XR chest 1V Stat 02/28/18 02:16 Complete Blood Count AUTO DIFF Stat Comprehensive Metabolic Panel Stat Lipase Stat Partial Thromboplastin Time Stat Prothrombin Time INR Stat Troponin & CK Cardiac Panel Stat Discontinued Medications Nitroglycerin (Nitrostat) 0.4 mg SL NOW ONE Stop: 02/28/18 02:14 Last Admin: 02/28/18 02:14 Dose: 0.4 mg Vital Signs - 8 hr 02/28/18 01:44 02/28/18 02:14 02/28/18 02:28 Temperature 97.7 F Pulse Rate 75 66 61 Respiratory Rate 16 Blood Pressure 145/94 H 122/87 117/76 Blood Pressure [Left Arm] Pulse Oximetry 97 02/28/18 03:08 02/28/18 04:34 Temperature Pulse Rate 69 57 L Respiratory Rate 16 18 Blood Pressure Blood Pressure [Left Arm] 128/79 132/89 Pulse Oximetry 96 95 MDM - Chest Pain Lab Data Attestation: I reviewed the patient's lab results. Result diagrams: 02/28/18 02:16 02/28/18 02:16 Lab Results 02/28/18 02/28/18 02/28/18 Range/Units 02:16 02:16 02:16 WBC 7.9 (4.5-11.0) X10^3/uL RBC 5.29 (4.5-5.9) X10^6/uL Hgb 16.2 (13.5-17.5) g/dL Hct 48.0 (41-53) % MCV 90.7 (80-100) fL MCH 30.6 (26-34) PG MCHC 33.7 (30-36) % RDW 13.8 (11.6-14.8) % Plt Count 122 L (150-400) X10^3/uL Neut % (Auto) 63.3 (50-75) % Lymph % (Auto) 27.5 (25-40) % [place] % (Auto) 6.0 (3-14) % Eos % (Auto) 2.5 (2-4) % Baso % (Auto) 0.7 (0-2) % Neut # (Auto) 5000 (5374-1433) /uL PT 12.1 (10.1-12.7) SECONDS INR 1.1 (0.9-1.3) APTT 33 D (26.4-36.2) SECONDS Sodium 139 (137-145) mmol/L Potassium 4.3 (3.4-5.1) mmol/L Chloride 103 (98-107) mmol/L Carbon Dioxide 26 (22-32) mmol/L BUN 19 (9-20) mg/dL Creatinine 1.20 (0.66-1.25) mg/dL Estimated GFR > 60.0 (>60) mL/min BUN/Creatinine Ratio 15.8 (6-22) Glucose 117 H (80-110) mg/dL Calcium 9.3 (8.4-10.2) mg/dL Total Bilirubin 0.6 (0.2-1.3) mg/dL AST 23 (17-59) IU/L ALT 31 (21-72) IU/L Alkaline Phosphatase 39 (38-126) U/L Total Creatine Kinase 66 (55-170) U/L CK-MB (CK-2) TNP CK-MB (CK-2) Rel Index TNP Troponin I 0.053 H (0.01-0.034) ng/mL Total Protein 6.7 (6.3-8.2) g/dL Albumin 4.0 (3.5-5.0) g/dL Globulin 2.7 (1.7-4.1) g/dL Albumin/Globulin Ratio 1.5 (1.0-2.8) Lipase 80 (23-300) U/L Imaging Data Chest x-ray: Attestation: I personally reviewed and interpreted this imaging study as follows: My impression: Postsurgical changes noted no acute process ECG Data Attestation: I personally reviewed and interpreted this ECG as follows: Prior ECG tracings: available for review Interpretation: EKG 1. Normal sinus rhythm rate [address] changes as needed oral 188 QRS 109 QTC 412 similar to previous EKG in July 2017 EKG 2. Sinus rhythm rate 56 no changes from prior MDM Narrative Medical decision making narrative: Patient received a 2nd nitro which took his pain down to a 0. Records from [facility] recommended medical management unless he becomes symptomatic. He does have increased discomfort radiating to his left arm similar to previous angina relieved with 2 nitros. He has an indeterminate troponin on the lower and and in EKG without changes. However based all his previous heart catheterization an chest pain patient may require further evaluation. I have spoken to [facility] who does accept him. Dr. Nelson is the accepting physician. Discharge Plan Departure Patient Disposition: [facility] Clinical Impression: Chest pain Prescriptions: No Action metoprolol succinate 25 mg tablet extended release 24 hr 25 mg PO DAILY Qty: 90 RF: 0 calcipotriene-betamethasone [Taclonex] 60 GM ointment 1 oin TP PRN PRN (Reason: unknown) Qty: 0 RF: 0 niacin 500 MG capsule, extended release 500 mg PO HS Qty: 30 RF: 2 tamsulosin [Flomax] 0.4 MG capsule,extended release 24hr 0.4 mg PO QDAY Qty: 90 RF: 1 finasteride 5 MG tablet 5 mg PO QDAY Qty: 90 RF: 0 sucralfate 1 gram tablet 1 gram PO TID Qty: 90 RF: 3 lisinopril [Zestril] 10 mg tablet 10 mg PO DAILY Qty: 30 RF: 0 isosorbide mononitrate 30 mg tablet extended release 24 hr 30 mg PO DAILY RF: 0 triamcinolone acetonide 0.1 % cream 1 applic Topical PRN PRN (Reason: unknown) RF: 0 nicotine 21 mg/24 hr patch 24 hour 21 mg Topical DAILY RF: 0 docusate sodium 100 mg Capsule 100 mg PO BID RF: 0 atorvastatin 80 MG tablet 80 mg PO DAILY RF: 0 terazosin 10 MG capsule 10 mg PO QHS RF: 0 Referrals: Grupo Bowling MD [Physician] -
[2018-02-28 02:23] LABS: Add Manual Diff / Slide Review NO; Basophils Percent Auto 0.7 % (0-2); Eosinophils Percent Auto 2.5 % (2-4); Hemoglobin 16.2 g/dL (13.5-17.5); Lymphocytes Percent Auto 27.5 % (25-40); Mean Corpuscular HGB Conc 33.7 % (30-36); Mean Corpuscular Hemoglobin 30.6 PG (26-34); Mean Corpuscular Volume 90.7 fL (80-100); Neutrophils Absolute Auto 5000 /uL (3000-5900); Neutrophils Percent Auto 63.3 % (50-75); Platelet Count 122 X10^3/uL (150-400); Red Blood Cell Count 5.29 X10^6/uL (4.5-5.9); Red Cell Distribution Width 13.8 % (11.6-14.8); White Blood Cell Count 7.9 X10^3/uL (4.5-11.0)
[2018-02-28 02:28] VITALS: BP 117/76; PULSE 61
[2018-02-28 02:29] LABS: Alanine Aminotransferase 31 IU/L (21-72); Albumin Globulin Ratio 1.5 (1.0-2.8); Alkaline Phosphatase 39 U/L (38-126); Aspartate Aminotransferase 23 IU/L (17-59); BUN Creatinine Ratio 15.8 (6-22); Bilirubin Total 0.6 mg/dL (0.2-1.3); Blood Urea Nitrogen 19 mg/dL (9-20); Calcium 9.3 mg/dL (8.4-10.2); Carbon Dioxide 26 mmol/L (22-32); Chloride 103 mmol/L (98-107); Creatine Kinase 66 U/L (55-170); Estimated Glomerular Filt Rate > 60.0 mL/min (>60); Globulin 2.7 g/dL (1.7-4.1); Glucose 117 mg/dL (80-110); HEMOLYSIS < 15 (0-50); Lipase 80 U/L (23-300); Potassium 4.3 mmol/L (3.4-5.1); Sodium 139 mmol/L (137-145); Total Protein 6.7 g/dL (6.3-8.2)
[2018-02-28 02:36] LABS: INR 1.1 (0.9-1.3); Prothrombin Time 12.1 SECONDS (10.1-12.7)
[2018-02-28 02:38] LABS: PTT Partial Thromboplastin Tim 33 SECONDS (26.4-36.2)
[2018-02-28 02:41] LABS: Troponin I 0.053 ng/mL (0.01-0.034)
[2018-02-28 03:08] VITALS: BP 128/79; PULSE 69; RESP 16; O2SAT 96
[2018-02-28 04:34] VITALS: BP 132/89; PULSE 57; RESP 18; O2SAT 95
== END 2018-02-28 04:55 | disposition short-term general hospital (02) ==
PROVIDERS: Emergency Provider Emergency Medicine; Family Provider Family Medicine; PCP Family Medicine
DX: R07.89 Other chest pain (principal)
CPT/HCPCS: 36591; 71045; 80053; 82550; 83690; 84484; 85025; 85610; 85730; 93005; 93010; 99282; 99285

== ENCOUNTER → 2018-03-31 07:03 | Outpatient (CLI) | payer OTHER, SELFPAY ==
--- NOTE | 2018-03-31 07:10 | DI.US.S_ITS ---
PROCEDURE: US ABD AORTA ANEURYSM SCREEN INDICATIONS: SCREEN TECHNIQUE: Real time scanning was performed of the aorta and iliac arteries, with image documentation. COMPARISON: None. FINDINGS: Aorta: Proximal aortic diameter measures not well-visualized. Mid-aorta measures 1.8 cm. Distal aortic diameter is 2.1 cm. Vascular calcifications indicate atherosclerosis. Iliac arteries: Right common iliac artery measures 1.3 cm. Left common iliac artery measures 1.0 cm. IMPRESSION: Proximal aorta not well visualized otherwise no abdominal aortic or proximal common iliac artery aneurysm. Dictated by: Chacorta Herring [facility] Interpreted: Linda Jaime MD on 03/31/2018 at 7:51 Approved by: Linda Jaime MD, PhD on 03/31/2018 at 10:37
== END ==
PROVIDERS: PCP Student in an Organized Health Care Education/Training Program; Visit Provider Student in an Organized Health Care Education/Training Program
DX: Z13.6 Encounter for screening for cardiovascular disorders (principal); F17.200 Nicotine dependence, unspecified, uncomplicated
CPT/HCPCS: 76706

== ENCOUNTER → 2018-04-13 09:16 | Outpatient (CLI) | payer OTHER, SELFPAY ==
[2018-04-13 10:10] LABS: BUN Creatinine Ratio 17.1 (6-22); Blood Urea Nitrogen 24 mg/dL (9-20); Calcium 9.1 mg/dL (8.4-10.2); Carbon Dioxide 24 mmol/L (22-32); Chloride 103 mmol/L (98-107); Cholesterol 155 mg/dL (140-199); Estimated Glomerular Filt Rate 50.7 mL/min (>60); Glucose 123 mg/dL (80-110); HDL Cholesterol 43 mg/dL (40-60); HEMOLYSIS < 15 (0-50); LDL Cholesterol Calculated 80 mg/dL (<100); Sodium 141 mmol/L (137-145); Triglycerides 160 mg/dL (35-150)
== END ==
PROVIDERS: PCP Student in an Organized Health Care Education/Training Program; Visit Provider Internal Medicine Cardiovascular Disease
DX: E78.00 Pure hypercholesterolemia, unspecified (principal); Z95.1 Presence of aortocoronary bypass graft; I10 Essential (primary) hypertension
CPT/HCPCS: 36415; 80048; 80061

== ENCOUNTER → 2018-06-13 08:54 | Outpatient (CLI) | payer OTHER, SELFPAY ==
[2018-06-13 10:33] LABS: Alanine Aminotransferase 29 IU/L (21-72); Albumin 4.3 g/dL (3.5-5.0); Albumin Globulin Ratio 1.4 (1.0-2.8); Alkaline Phosphatase 42 U/L (38-126); Aspartate Aminotransferase 22 IU/L (17-59); BUN Creatinine Ratio 17.7 (6-22); Blood Urea Nitrogen 23 mg/dL (9-20); Calcium 9.3 mg/dL (8.4-10.2); Carbon Dioxide 25 mmol/L (22-32); Chloride 102 mmol/L (98-107); Cholesterol 150 mg/dL (140-199); Estimated Glomerular Filt Rate 55.2 mL/min (>60); Glucose 129 mg/dL (80-110); HDL Cholesterol 42 mg/dL (40-60); HEMOLYSIS < 15 (0-50); LDL Cholesterol Calculated 79 mg/dL (<100); Potassium 4.7 mmol/L (3.4-5.1); Sodium 137 mmol/L (137-145); Total Protein 7.3 g/dL (6.3-8.2); Triglycerides 147 mg/dL (35-150)
[2018-06-13 11:24] LABS: Hep C Virus Ab w/Reflex Quant NEGATIVE s/c (NEGATIVE)
[2018-06-15 15:20] LABS: Hepatitis B Surf AB Imm QUANT < 5 mIU/mL (> 9)
== END ==
PROVIDERS: PCP Student in an Organized Health Care Education/Training Program; Referring Provider Internal Medicine Cardiovascular Disease; Visit Provider Physician Assistant
DX: L40.0 Psoriasis vulgaris (principal); I10 Essential (primary) hypertension; E78.00 Pure hypercholesterolemia, unspecified; Z95.1 Presence of aortocoronary bypass graft
CPT/HCPCS: 36415; 80053; 80061; 86317; 86803; 87535

== ENCOUNTER → 2018-06-14 09:55 | Outpatient (CLI) | payer OTHER, SELFPAY ==
[2018-06-14 10:46] LABS: Add Manual Diff / Slide Review NO; Basophils Absolute Auto 0 /uL (0-100); Basophils Percent Auto 0.7 % (0-2); Eosinophils Absolute Auto 200 /uL (0-450); Eosinophils Percent Auto 3.1 % (2-4); Hematocrit 50.8 % (41-53); Hemoglobin 16.9 g/dL (13.5-17.5); Lymphocytes Absolute Auto 2200 /uL (1100-4500); Lymphocytes Percent Auto 40.2 % (25-40); Mean Corpuscular HGB Conc 33.2 % (30-36); Mean Corpuscular Hemoglobin 30.2 PG (26-34); Mean Corpuscular Volume 90.9 fL (80-100); Monocytes Absolute Auto 300 /uL (0-900); Monocytes Percent Auto 5.9 % (3-14); Neutrophils Absolute Auto 2800 /uL (1500-7000); Neutrophils Percent Auto 50.1 % (50-75); Platelet Count 126 X10^3/uL (150-400); Red Blood Cell Count 5.59 X10^6/uL (4.5-5.9); Red Cell Distribution Width 14.1 % (11.6-14.8); White Blood Cell Count 5.6 X10^3/uL (4.5-11.0)
[2018-06-17 17:59] LABS: QuantiFERON TB NEGATIVE (Negative)
== END ==
PROVIDERS: PCP Student in an Organized Health Care Education/Training Program; Visit Provider Physician Assistant
DX: L40.0 Psoriasis vulgaris (principal)
CPT/HCPCS: 85025; 86480; 87538

== ENCOUNTER → 2018-07-01 08:05 | Outpatient (CLI) | payer OTHER, SELFPAY ==
[2018-07-01 09:55] LABS: Prostate Specific Antigen 0.251 ng/mL (0.10-4.00)
== END ==
PROVIDERS: Family Provider Student in an Organized Health Care Education/Training Program; PCP Student in an Organized Health Care Education/Training Program; Visit Provider Urology
DX: Z12.5 Encounter for screening for malignant neoplasm of prostate (principal)
CPT/HCPCS: 36415; 84153

== ENCOUNTER → 2018-07-22 09:57 | Outpatient (CLI) | payer OTHER, SELFPAY ==
--- NOTE | 2018-07-22 | DI.US.S_ITS ---
PROCEDURE: US CAROTID DOPPLER BI INDICATIONS: OCCLUSION AND STENOSIS OF BILATERAL CAROTID ARTERIES TECHNIQUE: Color and pulse Doppler interrogation was performed of both carotid systems, with image documentation and velocity measurements. COMPARISON: [facility], , CAROTID ARTERY DOPPLER BILAT, 09/18/2014, 10:40. [facility], , CAROTID ARTERY DOPPLER BILAT, 11/09/2008, 10:49. FINDINGS: Stenosis calculations are based on SRU (Society of Radiologists in Ultrasound) criteria. Right side: Brachial blood pressure: 114/75 mm Hg. Common carotid artery peak systolic velocity: 69 cm/sec. Internal carotid artery peak systolic velocity: 93 cm/sec. Internal carotid artery end diastolic velocity: 41 cm/sec. External carotid artery peak systolic velocity: 78 cm/sec. ICA/CCA peak systolic ratio: 1.4. Tomas scale imaging description: Mild soft plaque Percent internal carotid artery stenosis: Less than 50% stenosis. Vertebral artery: Flow direction is antegrade. Left side: Brachial blood pressure: 109/74 mm Hg. Common carotid artery peak systolic velocity: 70 cm/sec. Internal carotid artery peak systolic velocity: 108 cm/sec. Internal carotid artery end diastolic velocity: 22 cm/sec. External carotid artery peak systolic velocity: 185 cm/sec. ICA/CCA peak systolic ratio: 1.6. Tomas scale imaging description: Mild soft plaque Percent internal carotid artery stenosis: Less than 50% stenosis. Vertebral artery: Flow direction is antegrade. IMPRESSION: Less than 50% stenosis appears present within the proximal internal carotid arteries bilaterally. Vertebral arterial flow is normal and appearance. Mild soft plaque is present bilaterally at the proximal internal carotid arteries. Dictated by: Shahzad Toscano M.D. on 07/22/2018 at 11:13 Approved by: Shahzad Toscano M.D. on 07/22/2018 at 11:15
== END ==
PROVIDERS: Family Provider Student in an Organized Health Care Education/Training Program; PCP Student in an Organized Health Care Education/Training Program; Visit Provider Internal Medicine Cardiovascular Disease
DX: I65.23 Occlusion and stenosis of bilateral carotid arteries (principal)
CPT/HCPCS: 93880

== ENCOUNTER → 2019-04-20 10:11 | Outpatient (CLI) | payer OTHER, SELFPAY | PROVIDERS: Family Provider Student in an Organized Health Care Education/Training Program; PCP Student in an Organized Health Care Education/Training Program; Visit Provider Family Medicine | DX: S81.802A Unspecified open wound, left lower leg, initial encounter (principal); S81.801A Unspecified open wound, right lower leg, initial encounter; L40.9 Psoriasis, unspecified | CPT/HCPCS: 11042; 99203; 99213 ==

== ENCOUNTER → 2019-04-27 08:40 | Outpatient (CLI) | payer OTHER, SELFPAY | PROVIDERS: Family Provider Student in an Organized Health Care Education/Training Program; PCP Student in an Organized Health Care Education/Training Program; Visit Provider Family Medicine | DX: S81.801A Unspecified open wound, right lower leg, initial encounter (principal); S81.802A Unspecified open wound, left lower leg, initial encounter | CPT/HCPCS: 11042 ==

== ENCOUNTER → 2019-05-04 08:05 | Outpatient (CLI) | payer OTHER, SELFPAY ==
--- NOTE | 2019-05-04 | DI.US.S_ITS ---
PROCEDURE: US ARTERIAL DUPLEX LE BI INDICATIONS: EVALUATION FOR STENOSIS OR OCCLUSION TECHNIQUE: Color and pulse Doppler interrogation was performed of both lower extremity arterial systems, with image documentation. COMPARISON: None. FINDINGS: Right lower extremity: Common femoral artery: 91 cm/sec, with triphasic flow. Deep femoral artery: 64 cm/sec, with triphasic flow. Proximal superficial femoral artery: 114 cm/sec, with triphasic flow. Mid superficial femoral artery: 80 cm/sec, with biphasic flow. Distal superficial femoral artery: 78 cm/sec, with biphasic flow. Popliteal artery: 35 cm/sec, with biphasic flow. Posterior tibial artery: 85 cm/sec, with monophasic flow. Anterior tibial artery/dorsalis pedis: 17 cm/sec, with biphasic flow but no dorsalis pedis flow was seen.. Tomas-scale imaging description: Relatively prominent calcific and soft plaque over the right lower extremity arterial vasculature. Cutaneous ulceration at the calf posteriorly Left lower extremity: Common femoral artery: 58 cm/sec, with triphasic flow. Deep femoral artery: 107 cm/sec, with biphasic becoming monophasic. Proximal superficial femoral artery: No flow seen Mid superficial femoral artery: No flow seen. Distal superficial femoral artery: 21-91 cm/sec, with monophasic flow. Popliteal artery: 29 cm/sec, with monophasic flow. Posterior tibial artery: 31-55 cm/sec, with monophasic flow. Anterior tibial artery/dorsalis pedis: 9-20 cm/sec, with monophasic flow. Tomas-scale imaging description: Prominent calcific and soft plaquing involving the left lower extremity arterial vasculature. Cutaneous ulceration at the calf anteriorly IMPRESSION: Arterial insufficiency is significantly greater on the left than the right. At the right lower extremity there is a mild reduction in flow velocity but biphasic flow characteristics are maintained through the popliteal artery. At the calf level moderate arterial insufficiency is present involving both the anterior and posterior tibial arteries. On the left the superficial femoral artery proximally and through its middle third shows occlusion of flow, with reperfusion at the far distal superficial femoral artery and popliteal artery by collateral flow documented as monophasic. This pattern extends through the calf vessels. The calf region bilaterally demonstrates cutaneous ulcerations due to arterial insufficiency. Depending on the clinical status of the patient followup by MR angiography with runoff through the lower extremities bilaterally may be warranted for consideration of bypass grafting or other intervention. Dictated by: Shazhad Toscano M.D. on 05/04/2019 at 15:46 Approved by: Shahzad Toscano M.D. on 05/04/2019 at 15:56
== END ==
PROVIDERS: Family Provider Student in an Organized Health Care Education/Training Program; PCP Student in an Organized Health Care Education/Training Program; Referring Provider Internal Medicine Cardiovascular Disease; Visit Provider Family Medicine
DX: I70.203 Unspecified atherosclerosis of native arteries of extremities, bilateral legs (principal); I25.10 Atherosclerotic heart disease of native coronary artery without angina pectoris; S81.801A Unspecified open wound, right lower leg, initial encounter; S81.802A Unspecified open wound, left lower leg, initial encounter
CPT/HCPCS: 93925

== ENCOUNTER → 2019-05-04 09:56 | Outpatient (CLI) | payer OTHER, SELFPAY | PROVIDERS: Family Provider Student in an Organized Health Care Education/Training Program; PCP Student in an Organized Health Care Education/Training Program; Visit Provider Family Medicine | DX: S81.801A Unspecified open wound, right lower leg, initial encounter (principal); S81.802A Unspecified open wound, left lower leg, initial encounter; R60.0 Localized edema; I70.203 Unspecified atherosclerosis of native arteries of extremities, bilateral legs; I25.10 Atherosclerotic heart disease of native coronary artery without angina pectoris | CPT/HCPCS: 11042; 93925; 97597 ==

== ENCOUNTER → 2019-05-11 08:50 | Outpatient (CLI) | payer OTHER, SELFPAY | PROVIDERS: Family Provider Student in an Organized Health Care Education/Training Program; PCP Student in an Organized Health Care Education/Training Program; Visit Provider Family Medicine | DX: S81.802A Unspecified open wound, left lower leg, initial encounter (principal); S81.801D Unspecified open wound, right lower leg, subsequent encounter; I73.9 Peripheral vascular disease, unspecified; R60.0 Localized edema | CPT/HCPCS: 97597 ==

== ENCOUNTER → 2019-05-19 14:26 | Outpatient (CLI) | payer OTHER, SELFPAY | PROVIDERS: Family Provider Student in an Organized Health Care Education/Training Program; PCP Student in an Organized Health Care Education/Training Program; Visit Provider Family Medicine | DX: S81.801A Unspecified open wound, right lower leg, initial encounter (principal); S81.802A Unspecified open wound, left lower leg, initial encounter; L40.9 Psoriasis, unspecified; I73.9 Peripheral vascular disease, unspecified | CPT/HCPCS: 11043; 97597 ==

== ENCOUNTER → 2019-05-24 08:54 | Outpatient (CLI) | payer OTHER, SELFPAY | PROVIDERS: Family Provider Student in an Organized Health Care Education/Training Program; PCP Student in an Organized Health Care Education/Training Program; Visit Provider Family Medicine | DX: S81.801A Unspecified open wound, right lower leg, initial encounter (principal); S81.802A Unspecified open wound, left lower leg, initial encounter; I73.9 Peripheral vascular disease, unspecified; R60.0 Localized edema | CPT/HCPCS: 11042; 11043 ==

== ENCOUNTER → 2019-05-25 13:28 | Outpatient (CLI) | payer OTHER, SELFPAY | PROVIDERS: Family Provider Student in an Organized Health Care Education/Training Program; PCP Student in an Organized Health Care Education/Training Program; Visit Provider Family Medicine | DX: S81.801A Unspecified open wound, right lower leg, initial encounter (principal); S81.802A Unspecified open wound, left lower leg, initial encounter; L76.22 Postprocedural hemorrhage of skin and subcutaneous tissue following other procedure | CPT/HCPCS: 99213 ==

== ENCOUNTER → 2019-06-07 14:37 | Outpatient (CLI) | payer OTHER, SELFPAY | PROVIDERS: Family Provider Student in an Organized Health Care Education/Training Program; PCP Student in an Organized Health Care Education/Training Program; Visit Provider Family Medicine | DX: S81.801A Unspecified open wound, right lower leg, initial encounter (principal); S81.802A Unspecified open wound, left lower leg, initial encounter; L40.9 Psoriasis, unspecified; I73.9 Peripheral vascular disease, unspecified | CPT/HCPCS: 11042; 11043 ==

== ENCOUNTER → 2019-06-14 09:03 | Outpatient (CLI) | payer OTHER, SELFPAY | PROVIDERS: Family Provider Student in an Organized Health Care Education/Training Program; PCP Student in an Organized Health Care Education/Training Program; Visit Provider Family Medicine | DX: S81.801A Unspecified open wound, right lower leg, initial encounter (principal); S81.802A Unspecified open wound, left lower leg, initial encounter; R60.0 Localized edema; I73.9 Peripheral vascular disease, unspecified; L40.9 Psoriasis, unspecified | CPT/HCPCS: 11043; 87070; 87075; 87077; 87147; 87186; 87205 ==

== ENCOUNTER → 2019-06-21 08:52 | Outpatient (CLI) | payer OTHER, SELFPAY | PROVIDERS: Family Provider Student in an Organized Health Care Education/Training Program; PCP Student in an Organized Health Care Education/Training Program; Referring Provider Dermatology MOHS-Micrographic Surgery; Visit Provider Family Medicine | DX: I70.248 Atherosclerosis of native arteries of left leg with ulceration of other part of lower leg (principal); S81.802A Unspecified open wound, left lower leg, initial encounter; S81.801A Unspecified open wound, right lower leg, initial encounter; L40.9 Psoriasis, unspecified; I73.9 Peripheral vascular disease, unspecified; R60.0 Localized edema | CPT/HCPCS: 97597 ==

== ENCOUNTER → 2019-06-23 09:53 | Outpatient (CLI) | payer OTHER, SELFPAY | PROVIDERS: Family Provider Student in an Organized Health Care Education/Training Program; PCP Student in an Organized Health Care Education/Training Program; Referring Provider Dermatology MOHS-Micrographic Surgery; Visit Provider Family Medicine | DX: S81.801A Unspecified open wound, right lower leg, initial encounter (principal); S81.802A Unspecified open wound, left lower leg, initial encounter; R60.0 Localized edema | CPT/HCPCS: 97605 ==

== ENCOUNTER → 2019-06-27 11:23 | Outpatient (CLI) | payer OTHER, SELFPAY | PROVIDERS: Family Provider Student in an Organized Health Care Education/Training Program; PCP Student in an Organized Health Care Education/Training Program; Referring Provider Student in an Organized Health Care Education/Training Program; Visit Provider Family Medicine | DX: S81.801A Unspecified open wound, right lower leg, initial encounter (principal); S81.802A Unspecified open wound, left lower leg, initial encounter | CPT/HCPCS: 97605 ==

== ENCOUNTER → 2019-06-30 09:49 | Outpatient (CLI) | payer OTHER, SELFPAY | PROVIDERS: Family Provider Student in an Organized Health Care Education/Training Program; PCP Student in an Organized Health Care Education/Training Program; Referring Provider Dermatology MOHS-Micrographic Surgery; Visit Provider Family Medicine | DX: I87.2 Venous insufficiency (chronic) (peripheral) (principal); I70.248 Atherosclerosis of native arteries of left leg with ulceration of other part of lower leg; L97.811 Non-pressure chronic ulcer of other part of right lower leg limited to breakdown of skin; S81.802A Unspecified open wound, left lower leg, initial encounter; L40.9 Psoriasis, unspecified | CPT/HCPCS: 11042; 97605 ==

== ENCOUNTER → 2019-07-04 09:41 | Outpatient (CLI) | payer OTHER, SELFPAY | PROVIDERS: Family Provider Student in an Organized Health Care Education/Training Program; PCP Student in an Organized Health Care Education/Training Program; Referring Provider Student in an Organized Health Care Education/Training Program; Visit Provider Family Medicine | DX: I87.2 Venous insufficiency (chronic) (peripheral) (principal); L97.811 Non-pressure chronic ulcer of other part of right lower leg limited to breakdown of skin; S81.802A Unspecified open wound, left lower leg, initial encounter; R60.0 Localized edema | CPT/HCPCS: 11042; 97597; 97605 ==

== ENCOUNTER → 2019-07-07 13:14 | Outpatient (CLI) | payer OTHER, SELFPAY | PROVIDERS: Family Provider Student in an Organized Health Care Education/Training Program; PCP Student in an Organized Health Care Education/Training Program; Referring Provider Student in an Organized Health Care Education/Training Program; Visit Provider Family Medicine | DX: S81.801A Unspecified open wound, right lower leg, initial encounter (principal); S81.802A Unspecified open wound, left lower leg, initial encounter | CPT/HCPCS: 97605 ==

== ENCOUNTER → 2019-07-11 14:49 | Outpatient (CLI) | payer OTHER, SELFPAY | PROVIDERS: Family Provider Student in an Organized Health Care Education/Training Program; PCP Student in an Organized Health Care Education/Training Program; Referring Provider Dermatology MOHS-Micrographic Surgery; Visit Provider Family Medicine | DX: I87.2 Venous insufficiency (chronic) (peripheral) (principal); L97.811 Non-pressure chronic ulcer of other part of right lower leg limited to breakdown of skin; L40.9 Psoriasis, unspecified | CPT/HCPCS: 99213 ==

== ENCOUNTER → 2019-07-17 09:44 | Outpatient (CLI) | payer OTHER, SELFPAY ==
[2019-07-17 10:32] LABS: Add Manual Diff / Slide Review NO; Basophils Absolute Auto 0 /uL (0-100); Basophils Percent Auto 0.7 % (0-2); Eosinophils Absolute Auto 200 /uL (0-450); Eosinophils Percent Auto 2.8 % (2-4); Hematocrit 48.1 % (41-53); Hemoglobin 16.2 g/dL (13.5-17.5); Lymphocytes Absolute Auto 2300 /uL (1100-4500); Lymphocytes Percent Auto 35.4 % (25-40); Mean Corpuscular HGB Conc 33.6 % (30-36); Mean Corpuscular Hemoglobin 30.7 PG (26-34); Mean Corpuscular Volume 91.2 fL (80-100); Monocytes Absolute Auto 300 /uL (0-900); Monocytes Percent Auto 4.9 % (3-14); Neutrophils Absolute Auto 3700 /uL (1500-7000); Neutrophils Percent Auto 56.2 % (50-75); Platelet Count 122 X10^3/uL (150-400); Red Blood Cell Count 5.27 X10^6/uL (4.5-5.9); White Blood Cell Count 6.5 X10^3/uL (4.5-11.0)
[2019-07-17 11:18] LABS: Alanine Aminotransferase 15 IU/L (<50); Albumin 4.1 g/dL (3.5-5.0); Albumin Globulin Ratio 1.4 (1.0-2.8); Alkaline Phosphatase 45 U/L (38-126); Aspartate Aminotransferase 19 IU/L (17-59); BUN Creatinine Ratio 17.3 (6-22); Bilirubin Total 0.8 mg/dL (0.2-1.3); Blood Urea Nitrogen 26 mg/dL (9-20); Calcium 9.1 mg/dL (8.4-10.2); Carbon Dioxide 24 mmol/L (22-32); Chloride 106 mmol/L (98-107); Estimated Glomerular Filt Rate 46.7 mL/min (>60); Globulin 2.9 g/dL (1.7-4.1); Glucose 152 mg/dL (80-110); HEMOLYSIS < 15 (0-50); Potassium 4.6 mmol/L (3.4-5.1); Sodium 139 mmol/L (137-145)
[2019-07-17 12:16] LABS: HIV 1 & 2 Ab/Ag 4th Gen Combo NEGATIVE (NEGATIVE); Hep C Virus Ab w/Reflex Quant NEGATIVE s/c (NEGATIVE)
[2019-07-20 14:23] LABS: Hepatitis B Surf AB Imm QUANT < 5 mIU/mL (> 9)
== END ==
PROVIDERS: Family Provider Student in an Organized Health Care Education/Training Program; PCP Student in an Organized Health Care Education/Training Program; Referring Provider Physician Assistant; Visit Provider Physician Assistant
DX: L40.0 Psoriasis vulgaris (principal)
CPT/HCPCS: 36415; 80053; 85025; 86480; 86706; 86803; 87389

== ENCOUNTER → 2019-07-21 08:49 | Outpatient (CLI) | payer OTHER, SELFPAY ==
[2019-07-21 10:35] LABS: Alanine Aminotransferase 15 IU/L (<50); Albumin 4.2 g/dL (3.5-5.0); Albumin Globulin Ratio 1.6 (1.0-2.8); Alkaline Phosphatase 45 U/L (38-126); Aspartate Aminotransferase 18 IU/L (17-59); BUN Creatinine Ratio 15.3 (6-22); Bilirubin Total 0.9 mg/dL (0.2-1.3); Blood Urea Nitrogen 23 mg/dL (9-20); Calcium 9.4 mg/dL (8.4-10.2); Carbon Dioxide 25 mmol/L (22-32); Chloride 106 mmol/L (98-107); Cholesterol 165 mg/dL (140-199); Estimated Glomerular Filt Rate 46.7 mL/min (>60); Globulin 2.6 g/dL (1.7-4.1); Glucose 120 mg/dL (80-110); HDL Cholesterol 48 mg/dL (40-60); HEMOLYSIS < 15 (0-50); LDL Cholesterol Calculated 80 mg/dL (<100); Sodium 140 mmol/L (137-145); Total Protein 6.8 g/dL (6.3-8.2); Triglycerides 185 mg/dL (35-150)
== END ==
PROVIDERS: Family Provider Student in an Organized Health Care Education/Training Program; PCP Student in an Organized Health Care Education/Training Program; Referring Provider Internal Medicine Cardiovascular Disease; Visit Provider Internal Medicine Cardiovascular Disease
DX: E78.00 Pure hypercholesterolemia, unspecified (principal)
CPT/HCPCS: 36415; 80053; 80061

== ENCOUNTER → 2019-07-25 13:04 | Outpatient (CLI) | payer OTHER, SELFPAY | PROVIDERS: Family Provider Student in an Organized Health Care Education/Training Program; PCP Student in an Organized Health Care Education/Training Program; Referring Provider Dermatology MOHS-Micrographic Surgery; Visit Provider Family Medicine | DX: I87.2 Venous insufficiency (chronic) (peripheral) (principal); L97.811 Non-pressure chronic ulcer of other part of right lower leg limited to breakdown of skin; Z79.899 Other long term (current) drug therapy; Z79.01 Long term (current) use of anticoagulants; Z79.82 Long term (current) use of aspirin; I25.10 Atherosclerotic heart disease of native coronary artery without angina pectoris; L40.9 Psoriasis, unspecified; I70.248 Atherosclerosis of native arteries of left leg with ulceration of other part of lower leg | CPT/HCPCS: 11042; 97597; 99212; 99214 ==

== ENCOUNTER → 2019-07-31 13:18 | Outpatient (CLI) | payer OTHER, SELFPAY | PROVIDERS: Family Provider Student in an Organized Health Care Education/Training Program; PCP Student in an Organized Health Care Education/Training Program; Referring Provider Dermatology MOHS-Micrographic Surgery; Visit Provider Family Medicine | DX: I87.2 Venous insufficiency (chronic) (peripheral) (principal); L97.811 Non-pressure chronic ulcer of other part of right lower leg limited to breakdown of skin; L40.9 Psoriasis, unspecified | CPT/HCPCS: 97597 ==

== ENCOUNTER → 2019-10-19 08:22 | Outpatient (CLI) | payer OTHER, SELFPAY ==
[2019-10-19 09:49] LABS: Add Manual Diff / Slide Review NO; Basophils Absolute Auto 0 /uL (0-100); Basophils Percent Auto 0.7 % (0-2); Eosinophils Absolute Auto 200 /uL (0-450); Eosinophils Percent Auto 3.2 % (2-4); Hemoglobin 16.7 g/dL (13.5-17.5); Lymphocytes Absolute Auto 2200 /uL (1100-4500); Lymphocytes Percent Auto 37.1 % (25-40); Mean Corpuscular Volume 91.1 fL (80-100); Monocytes Absolute Auto 400 /uL (0-900); Monocytes Percent Auto 7.3 % (3-14); Neutrophils Absolute Auto 3100 /uL (1500-7000); Neutrophils Percent Auto 51.7 % (50-75); Platelet Count 124 X10^3/uL (150-400); Red Blood Cell Count 5.38 X10^6/uL (4.5-5.9); Red Cell Distribution Width 14.1 % (11.6-14.8); White Blood Cell Count 6.1 X10^3/uL (4.5-11.0)
[2019-10-19 10:06] LABS: Alanine Aminotransferase 18 IU/L (<50); Albumin 4.2 g/dL (3.5-5.0); Albumin Globulin Ratio 1.6 (1.0-2.8); Alkaline Phosphatase 42 U/L (38-126); Aspartate Aminotransferase 20 IU/L (17-59); BUN Creatinine Ratio 19.8 (6-22); Bilirubin Total 0.8 mg/dL (0.2-1.3); Bilirubin Unconjugated 0.7 mg/dL (0.0-1.1); Blood Urea Nitrogen 26 mg/dL (9-20); Calcium 9.5 mg/dL (8.4-10.2); Carbon Dioxide 22 mmol/L (22-32); Chloride 107 mmol/L (98-107); Estimated Glomerular Filt Rate 54.4 mL/min (>60); Globulin 2.6 g/dL (1.7-4.1); Glucose 132 mg/dL (80-110); HEMOLYSIS 19 (0-50); Potassium 4.8 mmol/L (3.4-5.1); Sodium 138 mmol/L (137-145); Total Protein 6.8 g/dL (6.3-8.2)
== END ==
PROVIDERS: Family Provider Student in an Organized Health Care Education/Training Program; PCP Student in an Organized Health Care Education/Training Program; Referring Provider Student in an Organized Health Care Education/Training Program
DX: L40.0 Psoriasis vulgaris (principal)
CPT/HCPCS: 36415; 80048; 80076; 85025

== ENCOUNTER → 2019-12-06 07:56 | Outpatient (CLI) | payer OTHER, SELFPAY ==
[2019-12-06 09:20] LABS: Cholesterol 211 mg/dL (140-199); HDL Cholesterol 35 mg/dL (40-60); Triglycerides 492 mg/dL (35-150)
== END ==
PROVIDERS: Family Provider Student in an Organized Health Care Education/Training Program; PCP Student in an Organized Health Care Education/Training Program; Referring Provider Internal Medicine Cardiovascular Disease; Visit Provider Internal Medicine Cardiovascular Disease
DX: I10 Essential (primary) hypertension (principal)
CPT/HCPCS: 36415; 80061

== ENCOUNTER → 2020-02-16 09:16 | Outpatient (CLI) | payer OTHER, SELFPAY ==
[2020-02-16 13:00] LABS: Cholesterol 174 mg/dL (140-199); HDL Cholesterol 44 mg/dL (40-60); LDL Cholesterol Calculated 87 mg/dL (<100); Triglycerides 217 mg/dL (35-150)
== END ==
PROVIDERS: Family Provider Student in an Organized Health Care Education/Training Program; PCP Student in an Organized Health Care Education/Training Program; Referring Provider Internal Medicine Cardiovascular Disease; Visit Provider Internal Medicine Cardiovascular Disease
DX: I10 Essential (primary) hypertension (principal)
CPT/HCPCS: 36415; 80061

== ENCOUNTER → 2020-03-09 09:01 | Outpatient (CLI) | payer OTHER, SELFPAY ==
[2020-03-11 01:57] LABS: COVID19 Sendout Not Detected (Not Detect)
== END ==
PROVIDERS: Family Provider Student in an Organized Health Care Education/Training Program; PCP Student in an Organized Health Care Education/Training Program; Visit Provider Student in an Organized Health Care Education/Training Program
DX: Z11.59 Encounter for screening for other viral diseases (principal)
CPT/HCPCS: 87635

== ENCOUNTER → 2020-05-03 16:41 | Outpatient (CLI) | payer OTHER, SELFPAY ==
[2020-05-03 17:09] LABS: Appearance Urine UA CLEAR; Bilirubin Urine UA NEGATIVE (NEGATIVE); Color Urine UA YELLOW; Glucose Urine UA NEGATIVE (Negative); Ketones Urine UA NEGATIVE (NEGATIVE); Leukocyte Esterase Urine UA NEGATIVE (NEGATIVE); Nitrite Urine UA NEGATIVE (Negative); Occult Blood Urine UA TRACE-LYSED (Negative); Protein Urine UA NEGATIVE (Negative); Specific Gravity Urine UA 1.025 (1.000-1.035); Urobilinogen Urine UA 0.2 E.U./dL (0.2); pH Urine UA 5.5 (4.5-8.0)
[2020-05-03 17:18] LABS: Bacteria Urine Occasional (0-1); Culture Indicated Urine Specimen Cultured; RBC Urine 1-5/HPF (0-5/HPF); Squamous Epithelial Cell Urine 0-1 /HPF (0-5/HPF); WBC Urine 5-10/HPF (0-5/HPF)
== END ==
PROVIDERS: Family Provider Student in an Organized Health Care Education/Training Program; PCP Student in an Organized Health Care Education/Training Program; Referring Provider Student in an Organized Health Care Education/Training Program; Visit Provider Student in an Organized Health Care Education/Training Program
DX: R31.9 Hematuria, unspecified (principal)
CPT/HCPCS: 81001; 87086

== ENCOUNTER 2020-06-13 08:30 | Outpatient (RCR) | payer OTHER, SELFPAY | END 2020-06-13 10:30 | LOC: CAR 08:30 | PROVIDERS: Family Provider Student in an Organized Health Care Education/Training Program; PCP Student in an Organized Health Care Education/Training Program; Referring Provider Internal Medicine Cardiovascular Disease; Visit Provider Internal Medicine Cardiovascular Disease | DX: I20.8 Other forms of angina pectoris (principal) | CPT/HCPCS: 93798 ==

== ENCOUNTER → 2020-06-24 09:28 | Outpatient (CLI) | payer OTHER, SELFPAY ==
[2020-06-24 10:39] LABS: BUN Creatinine Ratio 20.5 (6-22); Blood Urea Nitrogen 30 mg/dL (9-20)
== END ==
PROVIDERS: Family Provider Student in an Organized Health Care Education/Training Program; PCP Student in an Organized Health Care Education/Training Program; Referring Provider Urology; Visit Provider Urology
DX: R39.15 Urgency of urination (principal); R35.0 Frequency of micturition; N40.0 Benign prostatic hyperplasia without lower urinary tract symptoms
CPT/HCPCS: 36415; 82565; 84520

== ENCOUNTER 2020-06-24 20:28 | Emergency (ER) | payer OTHER, SELFPAY ==
[2020-06-24] VITALS (14 sets, daily range): BP systolic 110–167; BP diastolic 59–98; PULSE 76–129; RESP 15–21; TEMP 36.4; O2SAT 94–98
[2020-06-24] MEDS: AMIODARONE 150 MG/3 ML VIAL 300 MG IV (20:56)
[2020-06-24] MEDS: HEPARIN DRIP 25,000 UNIT/500 ML IV.SOLN 20 UNIT IV (21:02)
[2020-06-24] MEDS: ASPIRIN 81 MG CHEW TAB 324 MG PO (21:02)
[2020-06-24] MEDS: HEPARIN 5,000 UNIT/ML VIAL 7500 UNIT IV (21:03)
[2020-06-24] MEDS: NITROGLYCERIN 50 MG/250 ML INFUS..BTL IV (21:04)
[2020-06-24 21:10] LABS: Add Manual Diff / Slide Review NO; Basophils Absolute Auto 100 /uL (0-100); Basophils Percent Auto 0.4 % (0-2); Eosinophils Absolute Auto 200 /uL (0-450); Eosinophils Percent Auto 1.8 % (2-4); Hematocrit 50.2 % (41-53); Hemoglobin 16.2 g/dL (13.5-17.5); Lymphocytes Absolute Auto 5600 /uL (1100-4500); Lymphocytes Percent Auto 49.7 % (25-40); Mean Corpuscular HGB Conc 32.2 % (30-36); Mean Corpuscular Hemoglobin 30.1 PG (26-34); Mean Corpuscular Volume 93.4 fL (80-100); Monocytes Absolute Auto 800 /uL (0-900); Monocytes Percent Auto 6.6 % (3-14); Neutrophils Absolute Auto 4700 /uL (1500-7000); Neutrophils Percent Auto 41.5 % (50-75); Platelet Count 137 X10^3/uL (150-400); Red Blood Cell Count 5.37 X10^6/uL (4.5-5.9); Red Cell Distribution Width 13.6 % (11.6-14.8); White Blood Cell Count 11.3 X10^3/uL (4.5-11.0)
[2020-06-24 21:12] LABS: INR 1.1 (0.9-1.3); Prothrombin Time 12.4 SECONDS (10.1-12.7)
[2020-06-24 21:15] LABS: PTT Partial Thromboplastin Tim 31 SECONDS (26.4-36.2)
--- NOTE | 2020-06-24 21:15 | ED.CHESTPAIN ---
HPI - Chest Pain General Chief Complaint: Chest Pain Stated Complaint: CHEST PAIN Time Seen by Provider: 06/24/20 20:56 Source: patient Mode of arrival: Ambulatory History of Present Illness HPI narrative: 69-year-old gentleman with known cardiac disease post three-vessel CABG anticoagulated on apixaban presents with chest pain started at 7:15 a.m. tonight. He initially took 2 nitro and as it worsened and he took his 3rd nitro, the pain was radiating up to his jaw and down to his left arm, his drove him into the emergency department. In triage he was having difficulty breathing increasing pain and went on to a ventricular fibrillation cardiac arrest. He was shocked once and had return of spontaneous circulation. Related Data Home Medications Medication Instructions Recorded Confirmed docusate sodium 100 mg PO BID 09/29/17 05/03/20 terazosin 10 mg PO QHS 09/29/17 05/03/20 apixaban 5 mg tablet 5 mg PO BID 03/15/18 05/03/20 isosorbide mononitrate 60 mg 60 mg PO DAILY 03/15/18 05/03/20 tablet,extended release 24 hr niacin 500 mg tablet 500 mg PO DAILY 03/15/18 05/03/20 nitroglycerin 0.4 mg sublingual 0.4 mg SL Q5-15M PRN 03/15/18 05/03/20 tablet ranolazine 500 mg tablet,extended 500 mg PO BID 03/15/18 05/03/20 release,12 hr rosuvastatin 40 mg tablet 40 mg PO DAILY 03/15/18 05/03/20 ezetimibe 10 mg tablet 10 mg PO DAILY 02/23/20 05/03/20 lisinopril 10 mg tablet 10 mg PO DAILY 02/23/20 05/03/20 polypodium leucotomos extract 240 mg PO 05/03/20 05/03/20 mg capsule triamcinolone acetonide 0.1 % 1 applic TOPICAL BID 05/03/20 05/03/20 topical cream Previous Rx's Medication Instructions Recorded finasteride 5 mg PO QDAY #90 tab 02/13/16 tamsulosin [Flomax] 0.4 mg PO QDAY #90 cap 02/13/16 omeprazole 20 mg tablet,delayed 20 mg PO DAILY #90 tab 12/06/19 release sucralfate 1 gram tablet 1 gram PO BID #180 tab 12/06/19 metoprolol succinate 25 mg 25 mg PO BID #90 tab 02/23/20 tablet,extended release 24 hr Allergies Allergy/AdvReac Type Severity Reaction Status Date / Time No Known Drug Allergies Allergy Verified 05/03/20 16:20 Review of Systems Review of Systems Narrative: Pertinent positive and negative findings as per HPI Remainder of review of systems is otherwise unremarkable for Constitutional: Fevers, chills, weakness ENT: No sore throat, neck pain, ear pain Respiratory: Cough, wheeze, dyspnea GI: Nausea, vomiting, diarrhea, change in bowel habits, black or bloody stools : Dysuria, hematuria, flank pain Patient History Medical History Atrial fibrillation Cardiac arrest with ventricular fibrillation Carotid artery disease (Unknown) Coronary artery disease involving [place] coronary artery of [place] heart without angina pectoris (12/02/15) Disc degeneration (~2003) Essential hypertension (12/02/15) History of diverticulitis (Unknown) Hyperlipidemia (Unknown) Hypertension (Unknown) Nephrolithiasis (Unknown) Psoriasis (Unknown) Pure hypercholesterolemia (12/02/15) Surgical History Status post coronary artery bypass graft Status post knee surgery Status post tonsillectomy and adenoidectomy Social History marital status: household members: spouse occupational status: employed ([employer]) Smoking Status: Former smoker alcohol intake: former substance use type: marijuana Smoking Status: Former smoker alcohol intake frequency: 0-2 drinks per day Substance Use Type: marijuana Exam Narrative Exam Narrative: Initial exam in triage: gasping, ineffective breathing Pale, diaphoretic Progresses to acute loss of consciousness an apnea After single shock delivered and return of spontaneous circulation General: Color significantly improved, able to participate in history. Has no recollection of prior events. Well-nourished well-developed HEENT: Moist mucous membranes, normal sclera with reactive pupils, poor dentition Neck: No JVD, supple Respiratory: Lungs are clear to auscultation, no wheezing no rales no rhonchi. Full and symmetrical air movement Cardiac: Initially rapid atrial fibrillation, changing to sinus rhythm after amiodarone push, no murmurs Abdomen: Soft, nontender, good bowel tones, no flank pain Skin: Initially pale and diaphoretic, improving significantly and appears pink and well perfused at this time Neurologic: Grossly neurologically intact with no obvious asymmetries or abnormalities Extremities: No trauma, well perfused Psych: Cooperative Initial Vital Signs Initial Vital Signs: Vital Signs Temperature 97.5 F L 06/24/20 20:37 Pulse Rate 129 H 06/24/20 20:37 Respiratory Rate 20 06/24/20 20:37 Blood Pressure 162/98 H 06/24/20 20:37 Pulse Oximetry 98 06/24/20 20:37 Course Orders Ordered: Discontinued Medications Amiodarone HCl (Amiodarone 150 Mg/3 Ml Vial) 300 mg IV NOW ONE Stop: 06/24/20 20:57 Last Admin: 06/24/20 20:56 Dose: 300 mg Documented by: LUX Aspirin (Aspirin 81 Mg Chew Tab) 324 mg PO NOW ONE Stop: 06/24/20 20:57 Last Admin: 06/24/20 21:02 Dose: 324 mg Documented by: LUX Heparin Sodium (Porcine) (Heparin 5,000 Unit/Ml Vial) 7,500 unit IV NOW ONE Stop: 06/24/20 20:57 Last Admin: 06/24/20 21:03 Dose: 7,500 unit Documented by: LUX Heparin Sodium/Dextrose (Heparin Drip) 25,000 unit in 500 mls @ 20 mls/hr IV CONT MANGO; Protocol Last Titration: 06/24/20 21:30 Dose: 0 units/hr, 0 mls/hr Documented by: Titration: 06/24/20 21:05 Dose: 1,000 units/hr, 20 mls/hr Documented by: Admin: 06/24/20 21:02 Dose: 1,000 units/hr, 20 mls/hr Documented by: LUX Nitroglycerin (Nitroglycerin) 50 mg in 250 mls @ 1.5 mls/hr IV TITRATE MANGO; Protocol Last Titration: 06/24/20 21:30 Dose: 0 mcg/min, 0 mls/hr Documented by: Titration: 06/24/20 21:15 Dose: 7.5 mcg/min, 2.25 mls/hr Documented by: Titration: 06/24/20 21:05 Dose: 5 mcg/min, 1.5 mls/hr Documented by: Admin: 06/24/20 21:04 Dose: 5 mcg/min, 1.5 mls/hr Documented by: LUX Metoprolol Tartrate (Metoprolol Tartrate 5 Mg/5 Ml Inj) 5 mg IV Q5M MANGO Stop: 06/24/20 21:11 Last Admin: 06/24/20 22:12 Dose: Not Given Documented by: SAGE Vital Signs Vital signs: Vital Signs - 8 hr 06/24/20 20:37 06/24/20 20:53 06/24/20 20:54 Temperature 97.5 F L Pulse Rate 129 H 120 H 109 H Respiratory Rate 20 21 20 Blood Pressure 162/98 H 167/85 H Pulse Oximetry 98 06/24/20 20:58 06/24/20 21:00 06/24/20 21:01 Temperature Pulse Rate 105 H 98 H 89 Respiratory Rate 19 19 17 Blood Pressure 147/83 H 116/71 Pulse Oximetry 06/24/20 21:03 06/24/20 21:05 06/24/20 21:10 Temperature Pulse Rate 83 81 81 Respiratory Rate 20 16 19 Blood Pressure 119/77 122/76 111/74 Pulse Oximetry 95 MDM - Chest Pain Medical Records Data Attestation: I reviewed the patient's medical records. Lab Data Attestation: I reviewed the patient's lab results. Result diagrams: 06/24/20 20:56 06/24/20 20:56 Labs: Lab Results 06/24/20 06/24/20 06/24/20 Range/Units 20:56 20:56 20:56 WBC 11.3 H (4.5-11.0) X10^3/uL RBC 5.37 (4.5-5.9) X10^6/uL Hgb 16.2 (13.5-17.5) g/dL Hct 50.2 (41-53) % MCV 93.4 (80-100) fL MCH 30.1 (26-34) PG MCHC 32.2 (30-36) % RDW 13.6 (11.6-14.8) % Plt Count 137 L (150-400) X10^3/uL Neut % (Auto) 41.5 L (50-75) % Lymph % (Auto) 49.7 H (25-40) % [place] % (Auto) 6.6 (3-14) % Eos % (Auto) 1.8 L (2-4) % Baso % (Auto) 0.4 (0-2) % Neut # (Auto) 4700 (2903-4997) /uL Lymph # (Auto) 5600 H (8381-4821) /uL [place] # (Auto) 800 (0-900) /uL Eos # (Auto) 200 (0-450) /uL Baso # (Auto) 100 (0-100) /uL PT 12.4 (10.1-12.7) SECONDS INR 1.1 (0.9-1.3) APTT 31 (26.4-36.2) SECONDS Sodium 138 (137-145) mmol/L Potassium 4.4 (3.4-5.1) mmol/L Chloride 110 H (98-107) mmol/L Carbon Dioxide 21 L (22-32) mmol/L BUN 29 H (9-20) mg/dL Creatinine 1.42 H (0.66-1.25) mg/dL Estimated GFR 49.6 L (>60) mL/min BUN/Creatinine Ratio 20.4 (6-22) Glucose 173 H (80-110) mg/dL Calcium 9.0 (8.4-10.2) mg/dL Total Bilirubin 0.5 (0.2-1.3) mg/dL AST 46 (17-59) IU/L ALT 39 (<50) IU/L Alkaline Phosphatase 49 (38-126) U/L Total Creatine Kinase 87 (55-170) U/L CK-MB (CK-2) TNP CK-MB (CK-2) Rel Index TNP Troponin I 0.029 (0.01-0.034) ng/mL Total Protein 7.1 (6.3-8.2) g/dL Albumin 4.0 (3.5-5.0) g/dL Globulin 3.1 (1.7-4.1) g/dL Albumin/Globulin Ratio 1.3 (1.0-2.8) Lipase 185 (23-300) U/L SARS-CoV-2 (PCR) (Negative) 02/08/21 Range/Units 20:56 WBC (4.5-11.0) X10^3/uL RBC (4.5-5.9) X10^6/uL Hgb (13.5-17.5) g/dL Hct (41-53) % MCV (80-100) fL MCH (26-34) PG MCHC (30-36) % RDW (11.6-14.8) % Plt Count (150-400) X10^3/uL Neut % (Auto) (50-75) % Lymph % (Auto) (25-40) % [place] % (Auto) (3-14) % Eos % (Auto) (2-4) % Baso % (Auto) (0-2) % Neut # (Auto) (7662-0058) /uL Lymph # (Auto) (0686-2165) /uL [place] # (Auto) (0-900) /uL Eos # (Auto) (0-450) /uL Baso # (Auto) (0-100) /uL PT (10.1-12.7) SECONDS INR (0.9-1.3) APTT (26.4-36.2) SECONDS Sodium (137-145) mmol/L Potassium (3.4-5.1) mmol/L Chloride (98-107) mmol/L Carbon Dioxide (22-32) mmol/L BUN (9-20) mg/dL Creatinine (0.66-1.25) mg/dL Estimated GFR (>60) mL/min BUN/Creatinine Ratio (6-22) Glucose (80-110) mg/dL Calcium (8.4-10.2) mg/dL Total Bilirubin (0.2-1.3) mg/dL AST (17-59) IU/L ALT (<50) IU/L Alkaline Phosphatase (38-126) U/L Total Creatine Kinase (55-170) U/L CK-MB (CK-2) CK-MB (CK-2) Rel Index Troponin I (0.01-0.034) ng/mL Total Protein (6.3-8.2) g/dL Albumin (3.5-5.0) g/dL Globulin (1.7-4.1) g/dL Albumin/Globulin Ratio (1.0-2.8) Lipase (23-300) U/L SARS-CoV-2 (PCR) Negative (Negative) MDM Narrative Medical decision making narrative: 69-year-old gentleman with chest pain starting at 7:15 a.m. this evening. Ventricular fibrillation in triage in the emergency department. Patient was shocked and high-quality CPR was started. Return of spontaneous circulation approximately 1 minute into CPR. Patient was loaded with amiodarone, heparin and nitro drips were started, he was given aspirin. Shortly after the amiodarone he coded from atrial fibrillation to sinus rhythm and continued to slow down to a rate of 70. currently on 7.5 mics per minute of nitro and pain level is 0. Spoke with Dr. Randolph, cardiology at [facility]. He recommended ALS transfer to ER an activating STEMI protocols. He will contact the interventionalist doctor, Dr. Mendez. Care is reviewed with excepting emergency room doctor, Renzo Butler. Chest x-ray has not been done in the emergency department prior to ALS transport. Labs have been sent and COVID study was done Patient is awake, not intubated, hemodynamically stable and remains in critical condition at time of transfer to [facility] Critical Care Time Critical Care Time Critical Care Time: Yes Total Critical Care Time: 35 Attestation: Critical care time is separate from other billable procedures. This critical care time includes consultation with family and other consulting doctors, review of records, and interpretation of data from labs, EKGs and imaging as well as managements of V fib cardiac arrest and transfer to [facility]. Discharge Plan Departure Patient Disposition: [facility] Clinical Impression: Cardiac arrest with ventricular fibrillation Prescriptions: No Action rosuvastatin 40 mg tablet 40 mg PO DAILY RF: 0 isosorbide mononitrate 60 mg tablet extended release 24 hr 60 mg PO DAILY RF: 0 niacin 500 mg tablet 500 mg PO DAILY RF: 0 nitroglycerin 0.4 mg tablet, sublingual 0.4 mg SL Q5-15M PRNRF: 0 ranolazine 500 mg tablet extended release 12 hr 500 mg PO BID RF: 0 apixaban [Eliquis] 5 mg tablet 5 mg PO BID RF: 0 tamsulosin [Flomax] 0.4 MG capsule,extended release 24hr 0.4 mg PO QDAY Qty: 90 RF: 1 finasteride 5 MG tablet 5 mg PO QDAY Qty: 90 RF: 0 metoprolol succinate 25 mg tablet extended release 24 hr 25 mg PO BID Qty: 90 RF: 0 lisinopril 10 mg tablet 10 mg PO DAILY RF: 0 ezetimibe [Zetia] 10 mg tablet 10 mg PO DAILY RF: 0 omeprazole 20 mg tablet,delayed release (DR/EC) 20 mg PO DAILY Qty: 90 RF: 3 sucralfate 1 gram tablet 1 gram PO BID Qty: 180 RF: 3 triamcinolone acetonide 0.1 % cream 1 applic topical BID RF: 0 Heliocare 240 mg capsule PO RF: 0 docusate sodium 100 mg Capsule 100 mg PO BID RF: 0 terazosin 10 MG capsule 10 mg PO QHS RF: 0
[2020-06-24 21:16] LABS: Alanine Aminotransferase 39 IU/L (<50); Albumin Globulin Ratio 1.3 (1.0-2.8); Alkaline Phosphatase 49 U/L (38-126); Aspartate Aminotransferase 46 IU/L (17-59); BUN Creatinine Ratio 20.4 (6-22); Bilirubin Total 0.5 mg/dL (0.2-1.3); Blood Urea Nitrogen 29 mg/dL (9-20); Carbon Dioxide 21 mmol/L (22-32); Chloride 110 mmol/L (98-107); Creatine Kinase 87 U/L (55-170); Estimated Glomerular Filt Rate 49.6 mL/min (>60); Globulin 3.1 g/dL (1.7-4.1); Glucose 173 mg/dL (80-110); Lipase 185 U/L (23-300); Sodium 138 mmol/L (137-145); Total Protein 7.1 g/dL (6.3-8.2)
[2020-06-24 21:22] LABS: HEMOLYSIS 64 (0-50)
[2020-06-24 21:23] LABS: Potassium 4.4 mmol/L (3.4-5.1)
[2020-06-24 21:27] LABS: COVID19 -Nasal RAPID Negative (Negative)
[2020-06-24 21:28] LABS: Troponin I 0.029 ng/mL (0.01-0.034)
--- NOTE | 2020-06-24 22:12 | PC.NURSE ---
Pt transferred to [facility] @ 2130 w/ NTG/ Heparin infusing.
== END 2020-06-24 21:30 | disposition short-term general hospital (02) ==
PROVIDERS: Emergency Provider Emergency Medicine; Family Provider Student in an Organized Health Care Education/Training Program; PCP Student in an Organized Health Care Education/Training Program
DX: I46.9 Cardiac arrest, cause unspecified (principal); I49.01 Ventricular fibrillation; I25.10 Atherosclerotic heart disease of native coronary artery without angina pectoris; Z79.01 Long term (current) use of anticoagulants; R06.02 Shortness of breath; I10 Essential (primary) hypertension; E78.5 Hyperlipidemia, unspecified; Z20.822 Contact with and (suspected) exposure to COVID-19
CPT/HCPCS: 36415; 80053; 82550; 83690; 84484; 85025; 85610; 85730; 87635; 92950; 93005; 93010; 96365; 96368; 96375; 99284; 99291; C9803; J0282; J1644

== ENCOUNTER → 2020-07-02 10:55 | Outpatient (CLI) | payer OTHER, SELFPAY ==
--- NOTE | 2020-07-02 10:58 | DI.CT.S_ITS ---
PROCEDURE: CT ABDOMEN PELVIS WO/W CON INDICATIONS: HISTORY OF GROSS HEMATURIA TECHNIQUE: Optional 5 mm thick noncontrast images acquired from the diaphragm to the symphysis pubis. After the administration of intravenous contrast, 5 mm thick images acquired from the diaphragm to the symphysis pubis after a 10-minute delay. 2 mm thick coronal and sagittal reformats were then performed of the kidneys and ureters. For radiation dose reduction, the following was used: automated exposure control, adjustment of mA and/or kV according to patient size. COMPARISON: [facility], CR, XR CHEST 2 VIEWS, 06/27/2020, 6:58. FINDINGS: Image quality: Excellent. Lung bases: Lung bases are clear. Heart size is normal. Very advanced coronary atherosclerotic calcifications. CABG and pacer. Urinary system: Both kidneys are normal in size, without hydronephrosis on pre-contrast images. Central left renal calcifications may be vascular. No perinephric fat stranding. There is normal bilateral renal enhancement. Renal calyces appear normal in morphology when filled with contrast. Opacified portions of both ureters demonstrate normal caliber. There is wall thickening along the left posterior lateral wall of the bladder with 2 focal luminal masses present. There are both seen on coronal reformat image 108/5, where 1 of which measures 2.2 cm and the other measures 1.5 cm in diameter. calcified bladder stones. Other solid organs: Liver is normal in size and enhancement. Gallbladder contains numerous stones. No gallbladder wall thickening. . Biliary system is non dilated. Pancreas enhances normally. Spleen is normal in size and enhancement. No adrenal nodules. Peritoneum and bowel: Bowel loops demonstrate normal wall thickness and caliber. No free fluid or air. Extensive sigmoid diverticulosis without evidence of diverticulitis. Nodes and vessels: No retroperitoneal or mesenteric adenopathy by size criteria. Aorta is ectatic but not frankly aneurysmal . 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 Abdominal wall: No ventral hernias. Pelvis: No pathologic free pelvic fluid. No inguinal hernias or adenopathy. Bones: No suspicious bony lesions. No vertebral body compression fractures. IMPRESSION: 1. Left-sided bladder wall thickening with 2 focal polypoid masses present, highly suspicious for bladder carcinoma. 2. No evidence of hydronephrosis or hydroureter. 3. Remarkably advanced coronary artery calcifications. 4. Extensive sigmoid diverticulosis without evidence of diverticulitis. Dictated by: Sy Childress M.D. on 07/02/2020 at 15:01 Approved by: Sy Childress M.D. on 07/02/2020 at 15:08
== END ==
PROVIDERS: Family Provider Student in an Organized Health Care Education/Training Program; PCP Student in an Organized Health Care Education/Training Program; Referring Provider Urology; Visit Provider Urology
DX: N32.89 Other specified disorders of bladder (principal); K57.30 Diverticulosis of large intestine without perforation or abscess without bleeding
CPT/HCPCS: 74178; Q9967

== ENCOUNTER 2020-07-02 11:43 | Emergency (ER) | payer OTHER, SELFPAY ==
[2020-07-02] VITALS (11 sets, daily range): BP systolic 115–159; BP diastolic 68–94; PULSE 75–87; RESP 14–26; TEMP 36.7; O2SAT 97–99
[2020-07-02 12:32] LABS: Add Manual Diff / Slide Review NO; Basophils Absolute Auto 0 /uL (0-100); Basophils Percent Auto 0.7 % (0-2); Eosinophils Absolute Auto 100 /uL (0-450); Eosinophils Percent Auto 2.1 % (2-4); Hemoglobin 14.5 g/dL (13.5-17.5); Lymphocytes Absolute Auto 1700 /uL (1100-4500); Lymphocytes Percent Auto 26.9 % (25-40); Mean Corpuscular HGB Conc 33.8 % (30-36); Mean Corpuscular Hemoglobin 30.8 PG (26-34); Mean Corpuscular Volume 91.2 fL (80-100); Monocytes Absolute Auto 400 /uL (0-900); Monocytes Percent Auto 6.1 % (3-14); Neutrophils Absolute Auto 3900 /uL (1500-7000); Neutrophils Percent Auto 64.2 % (50-75); Platelet Count 110 X10^3/uL (150-400); Red Blood Cell Count 4.71 X10^6/uL (4.5-5.9); Red Cell Distribution Width 13.3 % (11.6-14.8); White Blood Cell Count 6.1 X10^3/uL (4.5-11.0)
[2020-07-02 12:37] LABS: INR 1.3 (0.9-1.3); Prothrombin Time 14.6 SECONDS (10.1-12.7)
[2020-07-02 12:40] LABS: PTT Partial Thromboplastin Tim 35 SECONDS (26.4-36.2)
[2020-07-02 12:42] LABS: Alanine Aminotransferase 28 IU/L (<50); Albumin 3.8 g/dL (3.5-5.0); Albumin Globulin Ratio 1.4 (1.0-2.8); Alkaline Phosphatase 62 U/L (38-126); Aspartate Aminotransferase 23 IU/L (17-59); BUN Creatinine Ratio 17.3 (6-22); Bilirubin Total 0.7 mg/dL (0.2-1.3); Blood Urea Nitrogen 22 mg/dL (9-20); Calcium 9.2 mg/dL (8.4-10.2); Carbon Dioxide 29 mmol/L (22-32); Chloride 100 mmol/L (98-107); Creatine Kinase 55 U/L (55-170); Estimated Glomerular Filt Rate 56.4 mL/min (>60); Globulin 2.8 g/dL (1.7-4.1); Glucose 198 mg/dL (80-110); HEMOLYSIS < 15 (0-50); Lipase 69 U/L (23-300); Magnesium 1.7 mg/dL (1.6-2.3); Potassium 4.9 mmol/L (3.4-5.1); Sodium 133 mmol/L (137-145); Total Protein 6.6 g/dL (6.3-8.2)
[2020-07-02 12:51] LABS: NT-proBNP (BNP-Adult 18+) 377 pg/mL (<125)
[2020-07-02 12:53] LABS: Troponin I 0.012 ng/mL (0.01-0.034)
--- NOTE | 2020-07-02 13:04 | ED_ITS ---
HPI - Chest Pain General Chief Complaint: Chest Pain Stated Complaint: left shoulder pain, recent v fib arrest Time Seen by Provider: 07/02/20 13:01 Source: patient Mode of arrival: Wheelchair Limitations: no limitations History of Present Illness HPI narrative: This is a 69-year-old male who comes to the emergency department with complaint of left shoulder/arm pain. Patient states it radiates from his shoulder down to the elbow. He states it seems more muscular to him. He states it does feel very different than the chest pain he had on June 24 when he developed chest pain, and VFib arrest. Patient states that this is sharp, it is worse with cough, sneezing, burping hiccuping. He states that he has been doing some gentle range of motion but is in a sling as he has an AICD in place. Patient states he has not elevated his elbow above the shoulder as he has been instructed. He does feel like there is a little bit spasm in the shoulder muscle itself. He does have a history of shoulder issues had a rotator cuff repair in the past. He states with his chest pain on the he was diaphoretic, nauseous and felt very ill. He states he has had some mild shortness of breath but relates that more to having rib pain when he takes a big breath. Patient did have CPR performed and states he has multiple areas of bruising and rib pain on his chest. He denies any fevers or chills. He denies any nausea no vomiting. No other new GI or urinary symptoms but does have some chronic urinary issues and follows with urology. He has not taken any pain medication including Tylenol [id number]. He states he did really noticed the shoulder pain because he has been more focused on the status post CPR chest pain since his arrest and noticed it earlier. He denies any numbness but does have a little bit of tingling into his arm. Related Data Home Medications Medication Instructions Recorded Confirmed docusate sodium 100 mg PO BID 09/29/17 07/01/20 terazosin 10 mg PO QHS 09/29/17 07/01/20 apixaban 5 mg tablet 5 mg PO BID 03/15/18 07/01/20 isosorbide mononitrate 60 mg 60 mg PO DAILY 03/15/18 07/01/20 tablet,extended release 24 hr niacin 500 mg tablet 500 mg PO DAILY 03/15/18 07/01/20 nitroglycerin 0.4 mg sublingual 0.4 mg SL Q5-15M PRN 03/15/18 07/01/20 tablet ranolazine 500 mg tablet,extended 500 mg PO BID 03/15/18 07/01/20 release,12 hr rosuvastatin 40 mg tablet 40 mg PO DAILY 03/15/18 07/01/20 ezetimibe 10 mg tablet 10 mg PO DAILY 02/23/20 07/01/20 lisinopril 10 mg tablet 10 mg PO DAILY 02/23/20 07/01/20 polypodium leucotomos extract 240 mg PO 05/03/20 07/01/20 mg capsule triamcinolone acetonide 0.1 % 1 applic TOPICAL BID 05/03/20 07/01/20 topical cream Previous Rx's Medication Instructions Recorded finasteride 5 mg PO QDAY #90 tab 02/13/16 tamsulosin [Flomax] 0.4 mg PO QDAY #90 cap 02/13/16 omeprazole 20 mg tablet,delayed 20 mg PO DAILY #90 tab 12/06/19 release sucralfate 1 gram tablet 1 gram PO BID #180 tab 12/06/19 metoprolol succinate 25 mg 25 mg PO BID #90 tab 02/23/20 tablet,extended release 24 hr hydrocodone-acetaminophen [Oldfield] 1 tab PO Q6H PRN #10 tab 07/02/20 Allergies Allergy/AdvReac Type Severity Reaction Status Date / Time No Known Drug Allergies Allergy Verified 07/01/20 14:11 Review of Systems Review of Systems ROS Unobtainable: All systems reviewed & are unremarkable except as noted in HPI and below Patient History Medical History Atrial fibrillation Cardiac arrest with ventricular fibrillation Carotid artery disease (Unknown) Coronary artery disease involving [place] coronary artery of [place] heart without angina pectoris (12/02/15) Disc degeneration (~2003) Essential hypertension (12/02/15) History of diverticulitis (Unknown) Hyperlipidemia (Unknown) Hypertension (Unknown) Nephrolithiasis (Unknown) Psoriasis (Unknown) Pure hypercholesterolemia (12/02/15) Surgical History Status post coronary artery bypass graft Status post knee surgery Status post tonsillectomy and adenoidectomy Social History marital status: household members: spouse occupational status: employed ([employer]) Smoking Status: Former smoker alcohol intake: former substance use type: marijuana Smoking Status: Former smoker alcohol intake frequency: 0-2 drinks per day Substance Use Type: marijuana Exam Narrative Exam Narrative: GENERAL: Alert and oriented x three, obese male in mild distress . HEENT: Head normocephalic, atraumatic, EOMI, pupils reactive, face symmetric, moist mucous membranes NECK: Supple, full range of motion CARDIOVASCULAR: Regular rate and rhythm without murmurs, rubs or gallops. Patient has AICD in place, appears to be healing incision with no erythema. Patient does have extensive bruising on his left upper and anterior chest. No warmth, erythema or purulent drainage noted. RESPIRATORY: Breath sounds equal bilaterally, no wheezes rales or rhonchi. ABDOMEN: Soft, nontender. Normoactive bowel sounds all 4 quadrants. No guarding or rebound, rigidity, no mass : No CVA tenderness EXTREMITIES: Normal range of motion but left shoulder was not taken through its full range of motion. Patient does not have any obvious bony tenderness of the clavicle, shoulder, AC joint or left upper extremity down into the wrist or hand. No swelling appreciated. Patient has equal stonecutter hand bilaterally. No clubbing or edema. Neurovascularly intact. 2+ radial pulse. Normal sensation throughout all 5 fingers. BACK: No cervical, thoracic vertebral point tenderness. NEUROLOGICAL: Cranial nerves II through XII grossly intact. Moving all extremities SKIN: Warm, dry, no petechiae, no rashes or lesions. Initial Vital Signs Initial Vital Signs: Vital Signs Temperature 98.1 F 07/02/20 11:44 Pulse Rate 87 07/02/20 11:44 Respiratory Rate 16 07/02/20 11:44 Blood Pressure 145/90 H 07/02/20 11:44 Pulse Oximetry 98 07/02/20 11:44 Course Orders Ordered: ED Orders 07/02/20 11:47 EKG-12 Lead Stat 07/02/20 12:21 BNP [NT-proBNP (BNP-Adult 18+)] Stat Complete Blood Count AUTO DIFF Stat Comprehensive Metabolic Panel Stat Lipase Stat Magnesium Stat Partial Thromboplastin Time Stat Prothrombin Time INR Stat Troponin & CK Cardiac Panel Stat 07/02/20 14:26 Troponin I Stat Discontinued Medications Hydrocodone Bitart/Acetaminophen (Hydrocodone/Acet 5/325 Tablet) 1 tab PO NOW ONE Stop: 07/02/20 13:36 Last Admin: 07/02/20 13:39 Dose: 1 tab Documented by: SAGE Reevaluation(s) Reevaluation #1: pt improved after norco. Time: 15:33 Consultations Consultation #1: Dr. Randolph called, Device check, [facility] [place] and evaluate for pleural effusion, can use CT images from today if they area adequate. Feels unlikely to be cardiac in nature today. Time: 13:04 Time: 15:33 Vital Signs Vital signs: Vital Signs - 8 hr 07/02/20 11:44 07/02/20 12:10 07/02/20 12:30 Temperature 98.1 F Pulse Rate 87 81 76 Respiratory Rate 16 16 14 Blood Pressure 145/90 H 132/82 134/74 Pulse Oximetry 98 97 97 07/02/20 13:00 07/02/20 13:06 07/02/20 13:30 Temperature Pulse Rate 75 79 80 Respiratory Rate 21 24 20 Blood Pressure 123/78 115/79 Pulse Oximetry 98 97 98 07/02/20 14:00 07/02/20 14:30 07/02/20 14:31 Temperature Pulse Rate 79 82 83 Respiratory Rate 17 24 22 Blood Pressure 150/92 H 129/68 Pulse Oximetry 99 07/02/20 15:00 07/02/20 15:30 Temperature Pulse Rate 78 79 Respiratory Rate 22 26 H Blood Pressure 144/94 H 159/90 H Pulse Oximetry MDM - Chest Pain Lab Data Attestation: I reviewed the patient's lab results. Result diagrams: 07/02/20 12:21 07/02/20 12:21 Labs: Lab Results 07/02/20 07/02/20 07/02/20 Range/Units 12:21 12:21 12:21 WBC 6.1 (4.5-11.0) X10^3/uL RBC 4.71 (4.5-5.9) X10^6/uL Hgb 14.5 (13.5-17.5) g/dL Hct 43.0 (41-53) % MCV 91.2 (80-100) fL MCH 30.8 (26-34) PG MCHC 33.8 (30-36) % RDW 13.3 (11.6-14.8) % Plt Count 110 L (150-400) X10^3/uL Neut % (Auto) 64.2 (50-75) % Lymph % (Auto) 26.9 (25-40) % [place] % (Auto) 6.1 (3-14) % Eos % (Auto) 2.1 (2-4) % Baso % (Auto) 0.7 (0-2) % Neut # (Auto) 3900 (8408-4415) /uL Lymph # (Auto) 1700 (4262-3484) /uL [place] # (Auto) 400 (0-900) /uL Eos # (Auto) 100 (0-450) /uL Baso # (Auto) 0 (0-100) /uL PT 14.6 H (10.1-12.7) SECONDS INR 1.3 (0.9-1.3) APTT 35 (26.4-36.2) SECONDS Sodium 133 L (137-145) mmol/L Potassium 4.9 (3.4-5.1) mmol/L Chloride 100 (98-107) mmol/L Carbon Dioxide 29 (22-32) mmol/L BUN 22 H (9-20) mg/dL Creatinine 1.27 H (0.66-1.25) mg/dL Estimated GFR 56.4 L (>60) mL/min BUN/Creatinine Ratio 17.3 (6-22) Glucose 198 H (80-110) mg/dL Calcium 9.2 (8.4-10.2) mg/dL Magnesium (1.6-2.3) mg/dL Total Bilirubin 0.7 (0.2-1.3) mg/dL AST 23 (17-59) IU/L ALT 28 (<50) IU/L Alkaline Phosphatase 62 (38-126) U/L Total Creatine Kinase 55 (55-170) U/L CK-MB (CK-2) TNP CK-MB (CK-2) Rel Index TNP Troponin I 0.012 (0.01-0.034) ng/mL NT-Pro-B Natriuret Pep (<125) pg/mL Total Protein 6.6 (6.3-8.2) g/dL Albumin 3.8 (3.5-5.0) g/dL Globulin 2.8 (1.7-4.1) g/dL Albumin/Globulin Ratio 1.4 (1.0-2.8) Lipase 69 D (23-300) U/L 07/02/20 07/02/20 Range/Units 12:21 14:26 WBC (4.5-11.0) X10^3/uL RBC (4.5-5.9) X10^6/uL Hgb (13.5-17.5) g/dL Hct (41-53) % MCV (80-100) fL MCH (26-34) PG MCHC (30-36) % RDW (11.6-14.8) % Plt Count (150-400) X10^3/uL Neut % (Auto) (50-75) % Lymph % (Auto) (25-40) % [place] % (Auto) (3-14) % Eos % (Auto) (2-4) % Baso % (Auto) (0-2) % Neut # (Auto) (8448-1566) /uL Lymph # (Auto) (0552-9061) /uL [place] # (Auto) (0-900) /uL Eos # (Auto) (0-450) /uL Baso # (Auto) (0-100) /uL PT (10.1-12.7) SECONDS INR (0.9-1.3) APTT (26.4-36.2) SECONDS Sodium (137-145) mmol/L Potassium (3.4-5.1) mmol/L Chloride (98-107) mmol/L Carbon Dioxide (22-32) mmol/L BUN (9-20) mg/dL Creatinine (0.66-1.25) mg/dL Estimated GFR (>60) mL/min BUN/Creatinine Ratio (6-22) Glucose (80-110) mg/dL Calcium (8.4-10.2) mg/dL Magnesium 1.7 (1.6-2.3) mg/dL Total Bilirubin (0.2-1.3) mg/dL AST (17-59) IU/L ALT (<50) IU/L Alkaline Phosphatase (38-126) U/L Total Creatine Kinase (55-170) U/L CK-MB (CK-2) CK-MB (CK-2) Rel Index Troponin I < 0.012 (0.01-0.034) ng/mL NT-Pro-B Natriuret Pep 377 H (<125) pg/mL Total Protein (6.3-8.2) g/dL Albumin (3.5-5.0) g/dL Globulin (1.7-4.1) g/dL Albumin/Globulin Ratio (1.0-2.8) Lipase (23-300) U/L Imaging Data CT scan - abdomen/pelvis: My Impression: Discussed findings with Dr. Jaime, who reviewed patient's CT imaging today from outpatient study. No pericardial effusion noted all the way up to pulmonary veins. ECG Data Attestation: I personally reviewed and interpreted this ECG as follows: Prior ECG tracings: available for review Interpretation: Sinus rhythm rate of 79 OR 168 QRS of 94 QTC at 7:[address] depression 1 aVL, no clear elevation appreciated. Left axis deviation. Patient has prior EKG from 06/24/2019 a day patient's VFib arrest which appears similar. MDM Narrative Medical decision making narrative: This is a 69-year-old male who comes to the emergency department with left shoulder pain approximately 8 days after a VFib cardiac arrest in the setting of [place]. patient states this this does feel different. He suspects it may be musculoskeletal. He has continued to have some musculoskeletal pain attributed to rib injury and pain s/p the trauma of CPR. Labs do not show any acute changes. His EKG appears similar to the EKG from the day of his cardiac arrest. Patient did have outpatient imaging which did not show any pleural effusion on CT. And Dr. Randolph asked that we interrogate patient's device. He does have a new or device and our machines are not capable so a tech was dispatched to the emergency department Patient's device was interrogated. Patient did not have any BT episodes noted, better is at 95%. No shocks delivered no tachyarrhythmias noted. Patient's repeat troponin is negative he does appear to be more musculoskeletal in nature and certainly can have a source with his recent CPR as well as having his arm in a sling chronically since his AICD was placed. Patient had some improvement with norco. Interrogation was reviewed with Dr. Randolph who has seen it and suspect this is all more musculoskeletal. Discharge Plan Departure Patient Disposition: Home Clinical Impression: Left shoulder pain Activity Restrictions/Additional Instructions: Follow-up with your Cardiology team as planned for recheck. Dr. Randolph reviewed your interrogation of your AICD today with no concerning changes. You may take 1 tablet are 650 mg every 8 hours as needed for pain, if this is an adequate you may take [place] instead of Tylenol but do not take them concurrently. They both have Tylenol and you should not exceed 3000 mg of Tylenol or acetaminophen in 24 hours. If you take the narcotic pain medication make sure you take a stool softener such as Colace 1-2 tablets daily until stools are soft. You may take [place] 1 tablet every 6 hours as needed for pain. Return to the ER if you have new or worsening chest, lightheadedness or passing out, if you have chest pain similar to her prior cardiac event on the 24 of June diaphoresis or sweating, shortness of breath, persistent vomiting, or other new or concerning symptoms. Prescriptions: New hydrocodone-acetaminophen [[place]] 5-325 mg tablet 1 tab PO Q6H PRN (Reason: pain) Qty: 10 RF: 0 No Action rosuvastatin 40 mg tablet 40 mg PO DAILY RF: 0 isosorbide mononitrate 60 mg tablet extended release 24 hr 60 mg PO DAILY RF: 0 niacin 500 mg tablet 500 mg PO DAILY RF: 0 nitroglycerin 0.4 mg tablet, sublingual 0.4 mg SL Q5-15M PRNRF: 0 ranolazine 500 mg tablet extended release 12 hr 500 mg PO BID RF: 0 apixaban [Eliquis] 5 mg tablet 5 mg PO BID RF: 0 tamsulosin [Flomax] 0.4 MG capsule,extended release 24hr 0.4 mg PO QDAY Qty: 90 RF: 1 finasteride 5 MG tablet 5 mg PO QDAY Qty: 90 RF: 0 metoprolol succinate 25 mg tablet extended release 24 hr 25 mg PO BID Qty: 90 RF: 0 lisinopril 10 mg tablet 10 mg PO DAILY RF: 0 ezetimibe [Zetia] 10 mg tablet 10 mg PO DAILY RF: 0 omeprazole 20 mg tablet,delayed release (DR/EC) 20 mg PO DAILY Qty: 90 RF: 3 sucralfate 1 gram tablet 1 gram PO BID Qty: 180 RF: 3 triamcinolone acetonide 0.1 % cream 1 applic topical BID RF: 0 Heliocare 240 mg capsule PO RF: 0 docusate sodium 100 mg Capsule 100 mg PO BID RF: 0 terazosin 10 MG capsule 10 mg PO QHS RF: 0 Referrals: Blair Wilson MD [Primary Care Provider] -
[2020-07-02] MEDS: HYDROCODONE/ACET 5/325 TABLET 1 TAB PO (13:39)
--- NOTE | 2020-07-02 13:50 | PC.NURSE ---
AICD is not able to be interrogated by [employer] tolley transmitter. (New device). Will send rep to interrogate.
[2020-07-02 15:02] LABS: Troponin I < 0.012 ng/mL (0.01-0.034)
== END 2020-07-02 16:09 | disposition home or self-care (01) ==
PROVIDERS: Emergency Provider Emergency Medicine; Family Provider Student in an Organized Health Care Education/Training Program; PCP Student in an Organized Health Care Education/Training Program
DX: M25.512 Pain in left shoulder (principal); Z86.74 Personal history of sudden cardiac arrest; E66.9 Obesity, unspecified; N32.89 Other specified disorders of bladder; K57.30 Diverticulosis of large intestine without perforation or abscess without bleeding
CPT/HCPCS: 36415; 74178; 80053; 82550; 83690; 83735; 83880; 84484; 85025; 85610; 85730; 93005; 93010; 99283; 99284; Q9967

== ENCOUNTER → 2020-08-05 09:43 | Outpatient (CLI) | payer OTHER, SELFPAY | PROVIDERS: Family Provider Student in an Organized Health Care Education/Training Program; PCP Student in an Organized Health Care Education/Training Program; Referring Provider Student in an Organized Health Care Education/Training Program; Visit Provider Family Medicine | DX: S81.802A Unspecified open wound, left lower leg, initial encounter (principal); I73.9 Peripheral vascular disease, unspecified; L08.0 Pyoderma; I87.2 Venous insufficiency (chronic) (peripheral); R21 Rash and other nonspecific skin eruption | CPT/HCPCS: 11042; 99214 ==

== ENCOUNTER → 2020-08-12 09:01 | Outpatient (CLI) | payer OTHER, SELFPAY | PROVIDERS: Family Provider Student in an Organized Health Care Education/Training Program; PCP Student in an Organized Health Care Education/Training Program; Referring Provider Student in an Organized Health Care Education/Training Program; Visit Provider Family Medicine | DX: I73.9 Peripheral vascular disease, unspecified (principal); I87.2 Venous insufficiency (chronic) (peripheral); S81.802A Unspecified open wound, left lower leg, initial encounter; L08.0 Pyoderma; R60.0 Localized edema | CPT/HCPCS: 11042 ==

== ENCOUNTER → 2020-08-19 10:46 | Outpatient (CLI) | payer OTHER, SELFPAY | PROVIDERS: Family Provider Student in an Organized Health Care Education/Training Program; PCP Student in an Organized Health Care Education/Training Program; Referring Provider Student in an Organized Health Care Education/Training Program; Visit Provider Family Medicine | DX: S81.802A Unspecified open wound, left lower leg, initial encounter (principal) | CPT/HCPCS: 99212 ==

== ENCOUNTER → 2020-08-26 09:03 | Outpatient (CLI) | payer OTHER, SELFPAY | PROVIDERS: Family Provider Student in an Organized Health Care Education/Training Program; PCP Student in an Organized Health Care Education/Training Program; Referring Provider Student in an Organized Health Care Education/Training Program; Visit Provider Family Medicine | DX: I87.2 Venous insufficiency (chronic) (peripheral) (principal); I73.9 Peripheral vascular disease, unspecified; S81.802A Unspecified open wound, left lower leg, initial encounter; L08.0 Pyoderma; R60.0 Localized edema | CPT/HCPCS: 97597 ==

== ENCOUNTER → 2020-08-27 16:25 | Outpatient (CLI) | payer OTHER, SELFPAY | PROVIDERS: Family Provider Student in an Organized Health Care Education/Training Program; PCP Student in an Organized Health Care Education/Training Program; Referring Provider Student in an Organized Health Care Education/Training Program; Visit Provider Family Medicine | DX: S81.802A Unspecified open wound, left lower leg, initial encounter (principal); R60.0 Localized edema | CPT/HCPCS: 29581 ==

== ENCOUNTER → 2020-09-02 09:21 | Outpatient (CLI) | payer OTHER, SELFPAY | PROVIDERS: Family Provider Student in an Organized Health Care Education/Training Program; PCP Student in an Organized Health Care Education/Training Program; Referring Provider Student in an Organized Health Care Education/Training Program; Visit Provider Family Medicine | DX: I87.2 Venous insufficiency (chronic) (peripheral) (principal); L97.821 Non-pressure chronic ulcer of other part of left lower leg limited to breakdown of skin; I73.9 Peripheral vascular disease, unspecified; R60.0 Localized edema; L08.0 Pyoderma | CPT/HCPCS: 11042; 99213 ==

== ENCOUNTER → 2020-09-09 10:07 | Outpatient (CLI) | payer OTHER, SELFPAY | PROVIDERS: Family Provider Student in an Organized Health Care Education/Training Program; PCP Student in an Organized Health Care Education/Training Program; Referring Provider Student in an Organized Health Care Education/Training Program; Visit Provider Family Medicine | DX: I87.2 Venous insufficiency (chronic) (peripheral) (principal); L97.821 Non-pressure chronic ulcer of other part of left lower leg limited to breakdown of skin; I73.9 Peripheral vascular disease, unspecified | CPT/HCPCS: 97597 ==

== ENCOUNTER → 2020-09-16 08:52 | Outpatient (CLI) | payer OTHER, SELFPAY | PROVIDERS: Family Provider Student in an Organized Health Care Education/Training Program; PCP Student in an Organized Health Care Education/Training Program; Referring Provider Student in an Organized Health Care Education/Training Program; Visit Provider Family Medicine | DX: I87.2 Venous insufficiency (chronic) (peripheral) (principal); L97.821 Non-pressure chronic ulcer of other part of left lower leg limited to breakdown of skin | CPT/HCPCS: 29581; 99213 ==

== ENCOUNTER → 2020-09-23 09:10 | Outpatient (CLI) | payer OTHER, SELFPAY ==
[2020-09-23 11:08] LABS: Alanine Aminotransferase 17 IU/L (<50); Albumin 3.7 g/dL (3.5-5.0); Albumin Globulin Ratio 1.3 (1.0-2.8); Alkaline Phosphatase 47 U/L (38-126); Aspartate Aminotransferase 22 IU/L (17-59); BUN Creatinine Ratio 15.2 (6-22); Bilirubin Total 0.6 mg/dL (0.2-1.3); Blood Urea Nitrogen 21 mg/dL (9-20); Calcium 9.2 mg/dL (8.4-10.2); Carbon Dioxide 26 mmol/L (22-32); Chloride 107 mmol/L (98-107); Cholesterol 95 mg/dL (140-199); Estimated Glomerular Filt Rate 51.1 mL/min (>60); Globulin 2.9 g/dL (1.7-4.1); Glucose 136 mg/dL (80-110); HDL Cholesterol 41 mg/dL (40-60); HEMOLYSIS 35 (0-50); LDL Cholesterol Calculated 33 mg/dL (<100); Potassium 4.4 mmol/L (3.4-5.1); Sodium 138 mmol/L (137-145); Total Protein 6.6 g/dL (6.3-8.2); Triglycerides 103 mg/dL (35-150)
== END ==
PROVIDERS: Family Provider Student in an Organized Health Care Education/Training Program; PCP Student in an Organized Health Care Education/Training Program; Referring Provider Internal Medicine Cardiovascular Disease; Visit Provider Internal Medicine Cardiovascular Disease
DX: I65.23 Occlusion and stenosis of bilateral carotid arteries (principal); Z95.1 Presence of aortocoronary bypass graft
CPT/HCPCS: 36415; 80053; 80061

== ENCOUNTER → 2020-09-23 09:17 | Outpatient (CLI) | payer OTHER, SELFPAY | PROVIDERS: Family Provider Student in an Organized Health Care Education/Training Program; PCP Student in an Organized Health Care Education/Training Program; Referring Provider Student in an Organized Health Care Education/Training Program; Visit Provider Family Medicine | DX: I65.23 Occlusion and stenosis of bilateral carotid arteries (principal); Z95.1 Presence of aortocoronary bypass graft; I87.2 Venous insufficiency (chronic) (peripheral); R60.0 Localized edema; I73.9 Peripheral vascular disease, unspecified | CPT/HCPCS: 36415; 80053; 80061; 99213 ==

== ENCOUNTER → 2020-10-31 12:09 | Outpatient (CLI) | payer OTHER, SELFPAY ==
[2020-10-31 12:15] LABS: Bacteria Urine None Seen
[2020-10-31 13:04] LABS: Appearance Urine UA CLEAR; Bilirubin Urine UA NEGATIVE (NEGATIVE); Color Urine UA YELLOW; Glucose Urine UA NEGATIVE (Negative); Ketones Urine UA NEGATIVE (NEGATIVE); Leukocyte Esterase Urine UA TRACE (NEGATIVE); Nitrite Urine UA NEGATIVE (Negative); Occult Blood Urine UA TRACE-LYSED (Negative); Protein Urine UA NEGATIVE (Negative); Specific Gravity Urine UA 1.025 (1.000-1.035); Urobilinogen Urine UA 0.2 E.U./dL (0.2); pH Urine UA 6.5 (4.5-8.0)
[2020-10-31 13:22] LABS: Culture Indicated Urine Cult Not Indicated; RBC Urine 0-1/HPF (0-5/HPF); Squamous Epithelial Cell Urine 0-1 /HPF (0-5/HPF); WBC Urine 0-1/HPF (0-5/HPF)
== END ==
PROVIDERS: Family Provider Student in an Organized Health Care Education/Training Program; PCP Student in an Organized Health Care Education/Training Program; Referring Provider Urology; Visit Provider Urology
DX: R31.0 Gross hematuria (principal)
CPT/HCPCS: 81001

== ENCOUNTER → 2021-02-04 07:46 | Outpatient (CLI) | payer OTHER, SELFPAY ==
[2021-02-04 09:19] LABS: Add Manual Diff / Slide Review NO; Basophils Absolute Auto 0 /uL (0-100); Basophils Percent Auto 0.7 % (0-2); Eosinophils Absolute Auto 200 /uL (0-450); Eosinophils Percent Auto 3.4 % (2-4); Hematocrit 46.1 % (41-53); Hemoglobin 14.9 g/dL (13.5-17.5); Lymphocytes Absolute Auto 2100 /uL (1100-4500); Lymphocytes Percent Auto 39.2 % (25-40); Mean Corpuscular HGB Conc 32.3 % (30-36); Mean Corpuscular Hemoglobin 29.8 PG (26-34); Monocytes Absolute Auto 500 /uL (0-900); Monocytes Percent Auto 8.8 % (3-14); Neutrophils Absolute Auto 2600 /uL (1500-7000); Neutrophils Percent Auto 47.9 % (50-75); Platelet Count 128 X10^3/uL (150-400); Red Blood Cell Count 5.01 X10^6/uL (4.5-5.9); White Blood Cell Count 5.4 X10^3/uL (4.5-11.0)
[2021-02-04 09:25] LABS: Alanine Aminotransferase 14 IU/L (<50); Albumin 3.8 g/dL (3.5-5.0); Albumin Globulin Ratio 1.5 (1.0-2.8); Alkaline Phosphatase 44 U/L (38-126); Aspartate Aminotransferase 18 IU/L (17-59); Bilirubin Total 0.6 mg/dL (0.2-1.3); Bilirubin Unconjugated 0.4 mg/dL (0.0-1.1); Blood Urea Nitrogen 20 mg/dL (9-20); Calcium 9.1 mg/dL (8.4-10.2); Carbon Dioxide 28 mmol/L (22-32); Chloride 106 mmol/L (98-107); Cholesterol 119 mg/dL (140-199); Estimated Glomerular Filt Rate > 60.0 mL/min (>60); Globulin 2.5 g/dL (1.7-4.1); Glucose 132 mg/dL (80-110); HDL Cholesterol 44 mg/dL (40-60); HEMOLYSIS < 15 (0-50); LDL Cholesterol Calculated 50 mg/dL (<100); Potassium 4.5 mmol/L (3.4-5.1); Sodium 138 mmol/L (137-145); Total Protein 6.3 g/dL (6.3-8.2); Triglycerides 123 mg/dL (35-150)
[2021-02-04 09:37] LABS: LDL Cholesterol Direct 61 mg/dL (<100)
[2021-02-04 10:29] LABS: Hep C Virus Ab w/Reflex Quant NEGATIVE s/c (NEGATIVE)
[2021-02-05 02:31] LABS: Hepatitis B Core Antibody Negative (Negative); Hepatitis BE Antigen Negative (Negative)
[2021-02-05 07:38] LABS: Hepatitis B Surf Ab Qualitativ Non Reactive (.)
[2021-02-10 08:50] LABS: QuantiFERON Mitogen Value >10.00 IU/mL (.); QuantiFERON Nil Value 0.05 IU/mL (.); QuantiFERON TB Gold Plus Negative (Negative); QuantiFERON TB1 Ag Value 0.06 IU/mL (.); QuantiFERON TB2 Ag Value 0.05 IU/mL (.)
== END ==
PROVIDERS: Family Provider Student in an Organized Health Care Education/Training Program; PCP Student in an Organized Health Care Education/Training Program; Referring Provider Naturopath; Visit Provider Naturopath
DX: L40.0 Psoriasis vulgaris (principal)
CPT/HCPCS: 36415; 80048; 80061; 80076; 83721; 85025; 86480; 86704; 86706; 86803; 87350

== ENCOUNTER → 2021-03-17 10:51 | Outpatient (CLI) | payer OTHER, SELFPAY | PROVIDERS: Family Provider Student in an Organized Health Care Education/Training Program; PCP Student in an Organized Health Care Education/Training Program; Referring Provider Student in an Organized Health Care Education/Training Program; Visit Provider Family Medicine | DX: L40.9 Psoriasis, unspecified (principal); T81.89XA Other complications of procedures, not elsewhere classified, initial encounter; S81.801A Unspecified open wound, right lower leg, initial encounter; S81.802A Unspecified open wound, left lower leg, initial encounter; Z85.828 Personal history of other malignant neoplasm of skin; I73.9 Peripheral vascular disease, unspecified; I87.2 Venous insufficiency (chronic) (peripheral); R60.0 Localized edema | CPT/HCPCS: 93923; 99214 ==

== ENCOUNTER → 2021-03-24 09:25 | Outpatient (CLI) | payer OTHER, SELFPAY | PROVIDERS: Family Provider Student in an Organized Health Care Education/Training Program; PCP Student in an Organized Health Care Education/Training Program; Referring Provider Student in an Organized Health Care Education/Training Program; Visit Provider Family Medicine | DX: I87.2 Venous insufficiency (chronic) (peripheral) (principal); L97.822 Non-pressure chronic ulcer of other part of left lower leg with fat layer exposed; L97.815 Non-pressure chronic ulcer of other part of right lower leg with muscle involvement without evidence of necrosis; R60.0 Localized edema; L40.9 Psoriasis, unspecified; I73.9 Peripheral vascular disease, unspecified; Z85.828 Personal history of other malignant neoplasm of skin | CPT/HCPCS: 11042 ==

== ENCOUNTER → 2021-03-26 14:56 | Outpatient (CLI) | payer OTHER, SELFPAY | PROVIDERS: Family Provider Student in an Organized Health Care Education/Training Program; PCP Student in an Organized Health Care Education/Training Program; Referring Provider Student in an Organized Health Care Education/Training Program; Visit Provider Family Medicine | DX: I87.2 Venous insufficiency (chronic) (peripheral) (principal); L97.822 Non-pressure chronic ulcer of other part of left lower leg with fat layer exposed; L97.815 Non-pressure chronic ulcer of other part of right lower leg with muscle involvement without evidence of necrosis; R60.0 Localized edema | CPT/HCPCS: 29581 ==

== ENCOUNTER → 2021-03-31 08:38 | Outpatient (CLI) | payer OTHER, SELFPAY | PROVIDERS: Family Provider Student in an Organized Health Care Education/Training Program; PCP Student in an Organized Health Care Education/Training Program; Referring Provider Student in an Organized Health Care Education/Training Program; Visit Provider Family Medicine | DX: I87.2 Venous insufficiency (chronic) (peripheral) (principal); L97.822 Non-pressure chronic ulcer of other part of left lower leg with fat layer exposed; L97.812 Non-pressure chronic ulcer of other part of right lower leg with fat layer exposed; R60.0 Localized edema; L40.9 Psoriasis, unspecified; I73.9 Peripheral vascular disease, unspecified | CPT/HCPCS: 11042 ==

== ENCOUNTER → 2021-04-07 08:57 | Outpatient (CLI) | payer OTHER, SELFPAY | PROVIDERS: Family Provider Student in an Organized Health Care Education/Training Program; PCP Student in an Organized Health Care Education/Training Program; Referring Provider Student in an Organized Health Care Education/Training Program; Visit Provider Family Medicine | DX: I87.2 Venous insufficiency (chronic) (peripheral) (principal); L97.822 Non-pressure chronic ulcer of other part of left lower leg with fat layer exposed; L97.812 Non-pressure chronic ulcer of other part of right lower leg with fat layer exposed; R60.0 Localized edema; L40.9 Psoriasis, unspecified; I73.9 Peripheral vascular disease, unspecified | CPT/HCPCS: 11042 ==

== ENCOUNTER → 2021-04-09 14:42 | Outpatient (CLI) | payer OTHER, SELFPAY ==
--- NOTE | 2021-04-09 | DI.US.S_ITS ---
PROCEDURE: US RENAL COMPLETE INDICATIONS: HISTORY BLADDER CANCER TECHNIQUE: Real-time scanning was performed of the kidneys and bladder, with image documentation. COMPARISON: [facility], CT, CT ABDOMEN PELVIS WO/W CON, 07/02/2020, 11:09. [facility], US, RENAL COMPLETE, 08/29/2009, 16:17. FINDINGS: Kidneys: Kidneys are normal in size. Right kidney measures 11.8 cm long; left kidney measures 12.1 cm long. Right renal cortical thickness is 1.6 cm; left renal cortical thickness is 1.8 cm. Renal cortical echotexture is normal. No hydronephrosis or nephrolithiasis. 2 hypoechoic, exophytic cortical lesions seen in the left kidney, measuring up to 1.3 cm, which appear to demonstrate increased through transmission and are favored to represent cysts. Bladder: Pre-void bladder volume is 153 mL. Post-void residual is 0 mL. Pre-void images demonstrate no intraluminal masses or stones. On pre-void images, no ureteral jets are noted with color Doppler interrogation. (Of note, ureteral jets may not be detectable in up to 25% of cases due to insufficient differences in specific gravity between ureteral and bladder urine). Miscellaneous: No free pelvic fluid. IMPRESSION: 1. No evidence of obstructive uropathy. 2. Hypoechoic lesions in the left kidney as detailed above, favored to represent cysts. Dictated by: Anupam Farrell M.D. on 04/09/2021 at 15:39 Approved by: Anupam Farrell M.D. on 04/09/2021 at 15:45
== END ==
PROVIDERS: Family Provider Student in an Organized Health Care Education/Training Program; PCP Student in an Organized Health Care Education/Training Program; Referring Provider Urology; Visit Provider Urology
DX: Z08 Encounter for follow-up examination after completed treatment for malignant neoplasm (principal); Z85.51 Personal history of malignant neoplasm of bladder; N28.9 Disorder of kidney and ureter, unspecified
CPT/HCPCS: 76770

== ENCOUNTER → 2021-04-14 08:37 | Outpatient (CLI) | payer OTHER, SELFPAY | PROVIDERS: Family Provider Student in an Organized Health Care Education/Training Program; PCP Student in an Organized Health Care Education/Training Program; Referring Provider Student in an Organized Health Care Education/Training Program; Visit Provider Family Medicine | DX: I87.2 Venous insufficiency (chronic) (peripheral) (principal); L97.822 Non-pressure chronic ulcer of other part of left lower leg with fat layer exposed; L97.812 Non-pressure chronic ulcer of other part of right lower leg with fat layer exposed; R60.0 Localized edema; L40.9 Psoriasis, unspecified; I73.9 Peripheral vascular disease, unspecified | CPT/HCPCS: 11042 ==

== ENCOUNTER → 2021-04-21 08:46 | Outpatient (CLI) | payer OTHER, SELFPAY | PROVIDERS: Family Provider Student in an Organized Health Care Education/Training Program; PCP Student in an Organized Health Care Education/Training Program; Referring Provider Student in an Organized Health Care Education/Training Program; Visit Provider Family Medicine | DX: I87.2 Venous insufficiency (chronic) (peripheral) (principal); L97.812 Non-pressure chronic ulcer of other part of right lower leg with fat layer exposed; L97.822 Non-pressure chronic ulcer of other part of left lower leg with fat layer exposed | CPT/HCPCS: 29581 ==

== ENCOUNTER → 2021-04-29 08:49 | Outpatient (CLI) | payer OTHER, SELFPAY | PROVIDERS: Family Provider Student in an Organized Health Care Education/Training Program; PCP Student in an Organized Health Care Education/Training Program; Referring Provider Student in an Organized Health Care Education/Training Program; Visit Provider Family Medicine | DX: I87.2 Venous insufficiency (chronic) (peripheral) (principal); L97.822 Non-pressure chronic ulcer of other part of left lower leg with fat layer exposed; L97.812 Non-pressure chronic ulcer of other part of right lower leg with fat layer exposed; R60.0 Localized edema; L40.9 Psoriasis, unspecified; I73.9 Peripheral vascular disease, unspecified | CPT/HCPCS: 11042 ==

== ENCOUNTER → 2021-05-06 08:29 | Outpatient (CLI) | payer OTHER, SELFPAY | PROVIDERS: Family Provider Student in an Organized Health Care Education/Training Program; PCP Student in an Organized Health Care Education/Training Program; Referring Provider Student in an Organized Health Care Education/Training Program; Visit Provider Family Medicine | DX: I87.2 Venous insufficiency (chronic) (peripheral) (principal); L97.822 Non-pressure chronic ulcer of other part of left lower leg with fat layer exposed; L97.812 Non-pressure chronic ulcer of other part of right lower leg with fat layer exposed; R60.0 Localized edema; L40.9 Psoriasis, unspecified; I73.9 Peripheral vascular disease, unspecified | CPT/HCPCS: 99212; 99214 ==

== ENCOUNTER → 2021-05-20 10:02 | Outpatient (CLI) | payer OTHER, SELFPAY | PROVIDERS: Family Provider Student in an Organized Health Care Education/Training Program; PCP Student in an Organized Health Care Education/Training Program; Referring Provider Student in an Organized Health Care Education/Training Program; Visit Provider Family Medicine | DX: I87.2 Venous insufficiency (chronic) (peripheral) (principal); L97.822 Non-pressure chronic ulcer of other part of left lower leg with fat layer exposed; L97.812 Non-pressure chronic ulcer of other part of right lower leg with fat layer exposed; R60.0 Localized edema; L40.9 Psoriasis, unspecified; I73.9 Peripheral vascular disease, unspecified | CPT/HCPCS: 11042; 99212 ==

== ENCOUNTER → 2021-05-27 10:09 | Outpatient (CLI) | payer OTHER, SELFPAY | PROVIDERS: Family Provider Student in an Organized Health Care Education/Training Program; PCP Student in an Organized Health Care Education/Training Program; Referring Provider Student in an Organized Health Care Education/Training Program; Visit Provider Family Medicine | DX: I87.2 Venous insufficiency (chronic) (peripheral) (principal); L97.822 Non-pressure chronic ulcer of other part of left lower leg with fat layer exposed; R60.0 Localized edema; L40.9 Psoriasis, unspecified; I73.9 Peripheral vascular disease, unspecified | CPT/HCPCS: 97597 ==

== ENCOUNTER → 2021-06-03 09:02 | Outpatient (CLI) | payer OTHER, SELFPAY | PROVIDERS: Family Provider Student in an Organized Health Care Education/Training Program; PCP Student in an Organized Health Care Education/Training Program; Referring Provider Student in an Organized Health Care Education/Training Program; Visit Provider Family Medicine | DX: I87.2 Venous insufficiency (chronic) (peripheral) (principal); I73.9 Peripheral vascular disease, unspecified | CPT/HCPCS: 99212 ==

== ENCOUNTER → 2021-07-17 12:03 | Outpatient (CLI) | payer OTHER, SELFPAY ==
--- NOTE | 2021-07-17 12:06 | DI.RAD.S_ITS ---
PROCEDURE: XR KNEE LT 3V INDICATIONS: knee pain, autraumatic; possible nerve impingement TECHNIQUE: 3 views of the knee were acquired. COMPARISON: None. FINDINGS: Bones: No fractures or dislocations. No suspicious bony lesions. Moderate degenerative arthritis, with moderately severe lateral patellofemoral joint space loss. Soft tissues: No joint effusion. No suspicious soft tissue calcifications. IMPRESSION: Moderate degenerative arthritis. Dictated by: Sy Childress M.D. on 07/17/2021 at 15:28 Approved by: Sy Childress M.D. on 07/17/2021 at 15:35
== END ==
PROVIDERS: Family Provider Student in an Organized Health Care Education/Training Program; PCP Student in an Organized Health Care Education/Training Program; Referring Provider Student in an Organized Health Care Education/Training Program; Visit Provider Student in an Organized Health Care Education/Training Program
DX: M25.562 Pain in left knee (principal); M17.12 Unilateral primary osteoarthritis, left knee
CPT/HCPCS: 73562

== ENCOUNTER → 2021-07-29 08:58 | Outpatient (CLI) | payer OTHER, SELFPAY ==
[2021-07-29 10:28] LABS: Blood Urea Nitrogen 18 mg/dL (9-20); Estimated Glomerular Filt Rate > 60.0 mL/min (>60)
== END ==
PROVIDERS: Family Provider Student in an Organized Health Care Education/Training Program; PCP Student in an Organized Health Care Education/Training Program; Referring Provider Student in an Organized Health Care Education/Training Program; Visit Provider Student in an Organized Health Care Education/Training Program
DX: Z01.812 Encounter for preprocedural laboratory examination (principal)
CPT/HCPCS: 36415; 82565; 84520

== ENCOUNTER → 2021-08-01 11:48 | Outpatient (CLI) | payer OTHER, SELFPAY ==
--- NOTE | 2021-08-01 12:37 | DI.CT.S_ITS ---
PROCEDURE: CT ANGIO ABD AORTA RUNOFF INDICATIONS: Claudication, abnormal JERRY TECHNIQUE: After the administration of intravenous contrast, 2.5 mm sections acquired from T12 to the feet, with optional delayed image acquisition from the knees to the feet. 3-dimensional maximum intensity projection (MIP) coronal and sagittal reformats, and/or 3-dimensional volume rendering reformatting was then performed. For radiation dose reduction, the following was used: automated exposure control. COMPARISON: [facility], CT, CT ABDOMEN PELVIS WO/W CON, 07/02/2020, 11:09. FINDINGS: Image quality: Excellent. Extravascular tissues: Visualized portions of the liver within normal limits. Gallbladder demonstrates multiple high-density foci within its lumen . Biliary system is non dilated. Pancreas enhances normally. Visualized spleen is within normal limits. There is diverticulosis of the descending and sigmoid colon. Visualized adrenals are within normal limits.. Kidneys are normal in size and enhancement, without hydronephrosis. Non opacified bowel loops demonstrate otherwise normal wall thickness and enhancement. No free fluid or air. No retroperitoneal or mesenteric adenopathy. Fat containing periumbilical hernia measuring 33 mm. Bladder wall thickness is normal. No inguinal hernias or adenopathy. No suspicious bony lesions. No vertebral body compression fractures. Bilateral L5-S1 pars interarticularis defects. Grade 1 anterolisthesis of L5 on S1. Abdominal aorta: There is moderate diffuse plaque causing mild diffuse stenosis. No aneurysm nor dissection. Renal and mesenteric arteries: Mild calcific origin stenoses of the celiac and superior mesenteric arteries. High-grade origin stenosis of the inferior mesenteric artery. Moderate to high-grade right renal artery origin stenosis. There are 3 small caliber left renal arteries, which demonstrate moderate to high-grade origin stenoses. Right lower extremity: There is moderate calcific plaque throughout the internal, external, and common iliac arteries. No significant stenosis within the common iliac artery. There is mild aneurysmal dilatation of the common iliac artery measuring roughly 18 mm short axis. Internal iliac artery demonstrates a high-grade calcific origin stenosis. External iliac artery demonstrates mild diffuse calcific stenosis. Common, profunda, and superficial femoral arteries demonstrate mild diffuse calcific stenosis. Superimposed high-grade calcific stenosis of the proximal superficial femoral artery. There is mild aneurysmal dilatation of the distal superficial femoral artery extending into the above knee popliteal artery junction measuring roughly 12 mm, with moderate mural thrombus. Mild diffuse stenosis within the below-knee popliteal artery is present. Anterior tibial artery occludes proximally. Tibioperoneal trunk demonstrates moderate calcific plaque causing mild diffuse stenosis with superimposed high-grade stenosis distally. Peroneal artery demonstrates mild diffuse stenosis. Posterior tibial artery occludes proximally. Left lower extremity: Moderate diffuse calcific plaque causes mild diffuse stenosis of the common iliac artery. There is aneurysmal dilatation of the distal common iliac artery, measuring 23 mm short axis with mild mural thrombus. Internal iliac artery is occluded at its origin. External iliac artery demonstrates mild diffuse calcific stenosis. Common and profunda femoral arteries demonstrate mild diffuse calcific stenosis. Superficial femoral artery is occluded. Reconstituted flow within the distal superficial femoral artery is present. There is mild diffuse calcific stenosis of the above and below knee popliteal arteries. Anterior tibial artery occludes proximally. Tibioperoneal trunk demonstrates moderate diffuse calcific stenosis. Peroneal artery occludes proximally. Posterior tibial artery demonstrates moderate diffuse calcific stenosis proximally, and is otherwise patent. IMPRESSION: 1. No significant inflow stenosis bilaterally. 2. High-grade right-sided outflow stenosis. Occluded left-sided outflow vessels. 3. 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 4. Bilateral runoff vessel stenosis as described above. 5. Bilateral common iliac artery aneurysms. 6. Renal and mesenteric artery stenosis as described above. 7. Grade 1 isthmic spondylolisthesis at L5-S1. Dictated by: Pilar Parikh M.D. on 08/01/2021 at 14:21 Approved by: Pilar Parikh M.D. on 08/01/2021 at 17:03
== END ==
PROVIDERS: Family Provider Student in an Organized Health Care Education/Training Program; PCP Student in an Organized Health Care Education/Training Program; Referring Provider Student in an Organized Health Care Education/Training Program; Visit Provider Student in an Organized Health Care Education/Training Program
DX: I73.9 Peripheral vascular disease, unspecified (principal); I35.0 Nonrheumatic aortic (valve) stenosis; I72.4 Aneurysm of artery of lower extremity; I70.1 Atherosclerosis of renal artery; K55.1 Chronic vascular disorders of intestine; M43.17 Spondylolisthesis, lumbosacral region
CPT/HCPCS: 75635

== ENCOUNTER → 2021-10-31 07:49 | Outpatient (CLI) | payer OTHER, SELFPAY ==
[2021-10-31 08:38] LABS: Appearance Urine UA CLEAR; Bilirubin Urine UA NEGATIVE (NEGATIVE); Color Urine UA YELLOW; Glucose Urine UA NEGATIVE (Negative); Ketones Urine UA NEGATIVE (NEGATIVE); Leukocyte Esterase Urine UA NEGATIVE (NEGATIVE); Nitrite Urine UA NEGATIVE (Negative); Occult Blood Urine UA NEGATIVE (Negative); Protein Urine UA TRACE (Negative); Specific Gravity Urine UA 1.025 (1.000-1.035); Urobilinogen Urine UA 0.2 E.U./dL (0.2)
[2021-10-31 09:16] LABS: RBC Urine None Seen (0-5/HPF)
[2021-10-31 09:17] LABS: Bacteria Urine Occasional (0-1); Culture Indicated Urine Cult Not Indicated; WBC Urine 0-1/HPF (0-5/HPF)
[2021-11-02 18:26] LABS: Alanine Aminotransferase 15 IU/L (<50); Albumin 3.7 g/dL (3.5-5.0); Albumin Globulin Ratio 1.5 (1.0-2.8); Alkaline Phosphatase 45 U/L (38-126); Aspartate Aminotransferase 16 IU/L (17-59); BUN Creatinine Ratio 15.3 (6-22); Blood Urea Nitrogen 23 mg/dL (9-20); Calcium 8.7 mg/dL (8.4-10.2); Carbon Dioxide 24 mmol/L (22-32); Chloride 107 mmol/L (98-107); Estimated Glomerular Filt Rate 50 mL/min (>60); Globulin 2.4 g/dL (1.7-4.1); Glucose 149 mg/dL (80-110); HEMOLYSIS < 15 (0-50); Magnesium 1.8 mg/dL (1.6-2.3); Potassium 4.6 mmol/L (3.4-5.1); Sodium 140 mmol/L (137-145); Total Protein 6.1 g/dL (6.3-8.2)
[2021-11-02 18:57] LABS: Thyroid Stimulating Hormone 1.74 uIU/mL (0.47-4.68)
== END ==
PROVIDERS: Urology; Family Provider Student in an Organized Health Care Education/Training Program; PCP Student in an Organized Health Care Education/Training Program; Referring Provider Internal Medicine Cardiovascular Disease; Visit Provider Internal Medicine Cardiovascular Disease
DX: I48.0 Paroxysmal atrial fibrillation (principal); R31.0 Gross hematuria
CPT/HCPCS: 36415; 80053; 81001; 83735; 84443

== ENCOUNTER → 2021-11-14 09:38 | Outpatient (CLI) | payer OTHER, SELFPAY ==
[2021-11-14 10:45] LABS: COVID19 -Nasal RAPID Negative (Negative)
== END ==
PROVIDERS: Family Provider Student in an Organized Health Care Education/Training Program; PCP Student in an Organized Health Care Education/Training Program; Referring Provider Internal Medicine; Visit Provider Internal Medicine
DX: Z20.822 Contact with and (suspected) exposure to COVID-19 (principal)
CPT/HCPCS: 87635; C9803

== ENCOUNTER → 2021-11-14 09:39 | Outpatient (CLI) | payer OTHER, SELFPAY ==
--- NOTE | 2021-11-21 08:38 | PM.PFT.1 ---
Pulmonary Function Test Referral & Results Date Patient Seen: 11/14/21 Requesting provider: Macho Vicente Results: The spirometry demonstrates an FVC of 3.53 L which is 74% of predicted. The FEV1 was measured at 2.72 L which is 77% of predicted. The FEV1/FVC ratio was 77 which is 104% of predicted. Following the administration of bronchodilator there was no notable change. Lung volumes show an SVC of 3.97 L which is 81% of predicted. The diffusing capacity was measured at 19.73 which is 56% of predicted. No hemoglobin value was provided, so no correction for potential anemia could be made, if appropriate. The maximum voluntary ventilation was slightly reduced Interpretation: This study demonstrates perhaps mild obstructive lung disease based on minimal reduction FEV1 although FEV1/FVC ratio is preserved. There is a minimal reduction in lung volumes as well suggesting the presence of restrictive lung disease which may well explain the abnormality in the FEV1 above There is a more moderately severe reduction diffusing capacity suggesting more significant disease at the capillary alveolar level Compared to PFTs performed in October 2017, previous study had normal spirometry with a minimally reduced diffusing capacity. There has been a more significant reduction in diffusing capacity on current study as well as minor changes in FEV1 as above Clinical correlation suggested
== END ==
PROVIDERS: Family Provider Student in an Organized Health Care Education/Training Program; PCP Student in an Organized Health Care Education/Training Program; Referring Provider Internal Medicine Cardiovascular Disease; Visit Provider Internal Medicine Cardiovascular Disease
DX: R06.02 Shortness of breath (principal); J98.8 Other specified respiratory disorders; Z20.822 Contact with and (suspected) exposure to COVID-19; Z87.891 Personal history of nicotine dependence
CPT/HCPCS: 87635; 94060; 94726; 94729; C9803

== ENCOUNTER → 2022-01-28 10:06 | Outpatient (CLI) | payer OTHER, SELFPAY ==
[2022-01-28 11:01] LABS: Alanine Aminotransferase 19 IU/L (<50); Albumin 4.1 g/dL (3.5-5.0); Albumin Globulin Ratio 1.5 (1.0-2.8); Alkaline Phosphatase 44 U/L (38-126); Aspartate Aminotransferase 19 IU/L (17-59); BUN Creatinine Ratio 17.7 (6-22); Bilirubin Total 1.1 mg/dL (0.2-1.3); Blood Urea Nitrogen 23 mg/dL (9-20); Calcium 9.2 mg/dL (8.4-10.2); Carbon Dioxide 21 mmol/L (22-32); Chloride 106 mmol/L (98-107); Cholesterol 110 mg/dL (140-199); Estimated Glomerular Filt Rate 59 mL/min (>60); Globulin 2.8 g/dL (1.7-4.1); Glucose 146 mg/dL (80-110); HDL Cholesterol 37 mg/dL (40-60); HEMOLYSIS < 15 (0-50); LDL Cholesterol Calculated 45 mg/dL (<100); Potassium 4.9 mmol/L (3.4-5.1); Sodium 136 mmol/L (137-145); Total Protein 6.9 g/dL (6.3-8.2); Triglycerides 139 mg/dL (35-150)
[2022-01-28 11:30] LABS: Thyroid Stimulating Hormone 3.17 uIU/mL (0.47-4.68)
== END ==
PROVIDERS: Family Provider Student in an Organized Health Care Education/Training Program; PCP Student in an Organized Health Care Education/Training Program; Referring Provider Nurse Practitioner Family; Visit Provider Nurse Practitioner Family
DX: I10 Essential (primary) hypertension (principal); I48.0 Paroxysmal atrial fibrillation; Z79.899 Other long term (current) drug therapy; I25.10 Atherosclerotic heart disease of native coronary artery without angina pectoris; E78.00 Pure hypercholesterolemia, unspecified; I25.5 Ischemic cardiomyopathy
CPT/HCPCS: 36415; 80053; 80061; 84443

== ENCOUNTER 2022-04-03 01:29 | Inpatient (IN) | payer OTHER, SELFPAY ==
[2022-04-03] VITALS (32 sets, daily range): BP systolic 90–123; BP diastolic 57–95; PULSE 91–110; RESP 16–39; TEMP 36.8–37.1; O2SAT 92–98; BMI 36.2; BMI 38.4
--- NOTE | 2022-04-03 01:33 | DI.RAD.S_ITS ---
PROCEDURE: XR CHEST 1V INDICATIONS: Shortness of breath TECHNIQUE: One view of the chest was acquired. COMPARISON: [facility], CR, XR CHEST 2 VIEWS, 06/27/2020, 6:58. [facility], CR, XR CHEST 1V, 02/28/2018, 2:01. FINDINGS: Surgical changes and devices: Left chest wall AICD and dual leads appear similar to the prior study. Postsurgical changes redemonstrated within the mediastinum. Lungs and pleura: There is pulmonary vascular prominence suggestive of mild edema. No pleural effusions or pneumothorax. Mediastinum: Mediastinal contours are unchanged. Heart size is enlarged. Bones and chest wall: No suspicious bony lesions. Overlying soft tissues appear unremarkable. IMPRESSION: 1. Mild pulmonary edema and cardiomegaly suggestive of congestive heart failure. Dictated by: Arias Schulte M.D. on 04/03/2022 at 2:20 Approved by: Arias Schulte M.D. on 04/03/2022 at 2:23
[2022-04-03] MEDS: ALBUTEROL 1.25 MG/3 ML NEB (PEDIATRIC) INH (02:01)
[2022-04-03 02:16] LABS: INR 1.3 (0.9-1.3); Prothrombin Time 15.2 SECONDS (10.1-12.7)
[2022-04-03 02:17] LABS: Add Manual Diff / Slide Review NO; Basophils Absolute Auto 100 /uL (0-100); Basophils Percent Auto 0.7 % (0-2); Eosinophils Absolute Auto 100 /uL (0-450); Eosinophils Percent Auto 1.5 % (2-4); Hematocrit 43.5 % (41-53); Hemoglobin 14.1 g/dL (13.5-17.5); Lymphocytes Absolute Auto 1300 /uL (1100-4500); Mean Corpuscular HGB Conc 32.4 % (30-36); Mean Corpuscular Hemoglobin 28.3 PG (26-34); Mean Corpuscular Volume 87.4 fL (80-100); Monocytes Absolute Auto 400 /uL (0-900); Monocytes Percent Auto 5.9 % (3-14); Neutrophils Absolute Auto 5600 /uL (1500-7000); Neutrophils Percent Auto 74.9 % (50-75); Platelet Count 131 X10^3/uL (150-400); Red Blood Cell Count 4.98 X10^6/uL (4.5-5.9); Red Cell Distribution Width 16.7 % (11.6-14.8); White Blood Cell Count 7.5 X10^3/uL (4.5-11.0)
[2022-04-03 02:21] LABS: Lactate (Lactic Acid) 1.8 mmol/L (0.7-2.1)
[2022-04-03 02:22] LABS: Alanine Aminotransferase 17 IU/L (<50); Albumin 3.8 g/dL (3.5-5.0); Albumin Globulin Ratio 1.4 (1.0-2.8); Alkaline Phosphatase 46 U/L (38-126); Aspartate Aminotransferase 14 IU/L (17-59); BUN Creatinine Ratio 19.3 (6-22); Bilirubin Total 1.1 mg/dL (0.2-1.3); Blood Urea Nitrogen 31 mg/dL (9-20); Calcium 8.5 mg/dL (8.4-10.2); Carbon Dioxide 20 mmol/L (22-32); Chloride 105 mmol/L (98-107); Estimated Glomerular Filt Rate 46 mL/min (>60); Globulin 2.8 g/dL (1.7-4.1); Glucose 203 mg/dL (80-110); HEMOLYSIS 17 (0-50); Potassium 5.1 mmol/L (3.4-5.1); Sodium 135 mmol/L (137-145); Total Protein 6.6 g/dL (6.3-8.2)
[2022-04-03 02:34] LABS: NT-proBNP (BNP-Adult 18+) 8810 pg/mL (<125); Troponin I < 0.012 ng/mL (0.01-0.034)
--- NOTE | 2022-04-03 03:58 | ED_ITS ---
HPI - General Adult General Chief complaint: Shortness of Breath/Dyspnea Stated complaint: DIFFICULTY BREATHING Time Seen by Provider: 04/03/22 02:13 Source: patient Mode of arrival: Wheelchair History of Present Illness HPI narrative: 71-year-old gentleman with history of CABG, atrial fibrillation anticoagulated on apixaban, hypertension, hyperlipidemia and valve disease with a dual-chamber AICD after cardiac arrest presents complaining of worsening dyspnea. Symptoms seem to worsen 2-3 weeks ago with severe smoke in the air. He notes that he is having significant wheeze. He also notes that he is having multiple episodes of nocturia with urinary frequency and getting very little sleep. Becoming more and more fatigued. He does notice orthopnea and lower extremity edema. He has not been having overt chest pain but has been having overall chest tightness. He describes no fever no abdominal pain no vomiting, constipation or diarrhea. He has had a cough that he describes as minimally productive but has not had a fever. Does not complain about body aches. Related Data Home Medications Medication Instructions Recorded Confirmed docusate sodium 100 mg capsule 100 mg PO BID 09/29/17 07/17/21 terazosin 10 mg capsule 10 mg PO QHS 09/29/17 07/17/21 apixaban 5 mg tablet (Eliquis) 5 mg PO BID 03/15/18 07/17/21 isosorbide mononitrate 60 mg 60 mg PO DAILY 03/15/18 07/17/21 tablet,extended release 24 hr niacin 500 mg tablet 500 mg PO DAILY 03/15/18 07/17/21 nitroglycerin 0.4 mg sublingual 0.4 mg sublingual Q5-15M PRN 03/15/18 07/17/21 tablet ranolazine 500 mg tablet,extended 500 mg PO BID 03/15/18 07/17/21 release,12 hr rosuvastatin 40 mg tablet 40 mg PO DAILY 03/15/18 07/17/21 ezetimibe 10 mg tablet (Zetia) 10 mg PO DAILY 02/23/20 07/17/21 triamcinolone acetonide 0.1 % 1 applic topical BID 05/03/20 07/17/21 topical cream metoprolol tartrate 37.5 mg tablet 37.5 mg PO BID 03/05/21 07/17/21 Previous Rx's Medication Instructions Recorded finasteride 5 mg tablet 5 mg PO QDAY #90 tabs 02/13/16 omeprazole 20 mg tablet,delayed 20 mg PO DAILY #90 tabs 09/15/21 release sucralfate 1 gram tablet 1 g PO BID #180 tabs 10/14/21 lisinopril 10 mg tablet 5 mg PO DAILY #90 tabs 02/02/22 Allergies Allergy/AdvReac Type Severity Reaction Status Date / Time No Known Drug Allergies Allergy Verified 07/17/21 11:30 Review of Systems Review of Systems Narrative: Remainder of complete review of systems is otherwise unremarkable except for that included in the HPI. Patient History Medical History Atrial fibrillation Cardiac arrest with ventricular fibrillation Carotid artery disease (Unknown) Coronary artery disease involving [place] coronary artery of [place] heart without angina pectoris (12/02/15) Disc degeneration (~2003) Essential hypertension (12/02/15) History of diverticulitis (Unknown) Hyperlipidemia (Unknown) Hypertension (Unknown) Nephrolithiasis (Unknown) Psoriasis (Unknown) Pure hypercholesterolemia (12/02/15) Surgical History AICD (automatic cardioverter/defibrillator) present (~06/2020) H/O transurethral destruction of bladder lesion Status post coronary artery bypass graft Status post knee surgery Status post tonsillectomy and adenoidectomy Social History marital status: household members: spouse occupational status: employed ([employer]) Smoking Status: Former smoker alcohol intake: former substance use type: marijuana Smoking Status: Former smoker alcohol intake frequency: 0-2 drinks per day Substance Use Type: does not use Exam Initial Vital Signs Initial Vital Signs: Vital Signs Temperature 98.4 F 04/03/22 01:34 Pulse Oximetry 97 04/03/22 01:34 Oxygen Delivery Method 04/03/22 01:34 General: Chronically ill-appearing in mild respiratory distress if the speak in 7-8 word sentences. Unable to lay down flat. HEENT: Moist mucous membranes, normal sclera with reactive pupils, Neck: Body habitus makes JVD assessment [place],, supple Respiratory: Lungs with wheeze in all lung gonzalez, crackles in the bases but overall poor air movement Cardiac: Sinus tachycardia at 99, no murmurs are appreciated however overriding pulmonary noise makes cardiac auscultation challenging Abdomen: Obese, Soft, nontender, good bowel tones, no flank pain Skin: Warm , well-perfused, very dry with peeling skin and significant sun damage in all exposed areas Neurologic: Globally weak but Grossly neurologically intact with no obvious asymmetries or abnormalities Extremities: No trauma, chronic venous stasis changes with 2+ lower extremity edema bilaterally Psych: Cooperative, appropriate insight and affect Course Orders Ordered: ED Orders 04/03/22 01:33 XR chest 1V Stat EKG-12 Lead Stat Measure peak expiratory flow ONCE RT Consult Eval and Treat NOW 04/03/22 02:00 Complete Blood Count AUTO DIFF Stat Comprehensive Metabolic Panel Stat Lactate (Lactic Acid) Stat NT-proBNP (BNP-Adult 18+) Stat Prothrombin Time INR Stat Troponin I Stat 04/03/22 04:12 Respiratory Panel (Film Array) Stat 04/03/22 05:53 EC echo doppler complete Urgent 04/03/22 09:00 Troponin I Urgent Discontinued Medications Albuterol (Albuterol 1.25 Mg/3 Ml Neb (Pediatric)) 1.25 mg INH NOW ONE Stop: 04/03/22 02:00 Last Admin: 04/03/22 02:01 Dose: 1.25 mg Documented By: Albuterol/Ipratropium (Albuterol/Ipratropium 3 Ml Ampul) 3 ml INH NOW ONE Stop: 04/03/22 04:14 Last Admin: 04/03/22 04:27 Dose: 3 ml Documented By: Furosemide (Furosemide 100 Mg/10 Ml Vial) 80 mg IV NOW ONE Stop: 04/03/22 04:14 Last Admin: 04/03/22 04:36 Dose: 80 mg Documented By: SOPHIA Magnesium Sulfate (Magnesium Sulfate) 2 gm in 50 mls @ 150 mls/hr IV NOW ONE Stop: 04/03/22 04:32 Last Admin: 04/03/22 04:36 Dose: 150 mls/hr Documented By: SOPHIA Co-signed By: SEAN Methylprednisolone (Methylprednisolone 125 Mg/2 Ml Vial) 125 mg IV NOW ONE Stop: 04/03/22 04:14 Last Admin: 04/03/22 04:35 Dose: 125 mg Documented By: SOPHIA Vital Signs Vital signs: Vital Signs - 8 hr 04/03/22 01:34 04/03/22 01:53 04/03/22 04:28 Temperature 98.4 F Pulse Rate 100 H 100 H Respiratory Rate 20 24 Pulse Oximetry 97 97 Oxygen Delivery Method Room Air Room Air Room Air Medical Decision Making Lab Data Result diagrams: 04/03/22 02:00 04/03/22 02:00 Labs: Lab Results 04/03/22 04/03/22 04/03/22 Range/Units 02:00 02:00 02:00 WBC 7.5 (4.5-11.0) X10^3/uL RBC 4.98 (4.5-5.9) X10^6/uL Hgb 14.1 (13.5-17.5) g/dL Hct 43.5 (41-53) % MCV 87.4 (80-100) fL MCH 28.3 (26-34) PG MCHC 32.4 (30-36) % RDW 16.7 H (11.6-14.8) % Plt Count 131 L (150-400) X10^3/uL Neut % (Auto) 74.9 (50-75) % Lymph % (Auto) 17.0 L (25-40) % [place] % (Auto) 5.9 (3-14) % Eos % (Auto) 1.5 L (2-4) % Baso % (Auto) 0.7 (0-2) % Neut # (Auto) 5600 (5587-9037) /uL Lymph # (Auto) 1300 (9643-3482) /uL [place] # (Auto) 400 (0-900) /uL Eos # (Auto) 100 (0-450) /uL Baso # (Auto) 100 (0-100) /uL PT 15.2 H (10.1-12.7) SECONDS INR 1.3 (0.9-1.3) Sodium 135 L (137-145) mmol/L Potassium 5.1 (3.4-5.1) mmol/L Chloride 105 (98-107) mmol/L Carbon Dioxide 20 L (22-32) mmol/L BUN 31 H (9-20) mg/dL Creatinine 1.61 H (0.66-1.25) mg/dL Estimated GFR 46 L (>60) mL/min BUN/Creatinine Ratio 19.3 (6-22) Glucose 203 H (80-110) mg/dL Lactate (0.7-2.1) mmol/L Calcium 8.5 (8.4-10.2) mg/dL Total Bilirubin 1.1 (0.2-1.3) mg/dL AST 14 L (17-59) IU/L ALT 17 (<50) IU/L Alkaline Phosphatase 46 (38-126) U/L Troponin I < 0.012 (0.01-0.034) ng/mL NT-Pro-B Natriuret Pep 8810 H (<125) pg/mL Total Protein 6.6 (6.3-8.2) g/dL Albumin 3.8 (3.5-5.0) g/dL Globulin 2.8 (1.7-4.1) g/dL Albumin/Globulin Ratio 1.4 (1.0-2.8) Chlamy pneumoniae PCR (Not Detect) Adenovirus (PCR) (Not Detect) B. pertussis DNA (PCR) (Not Detecte) B.parapertussis DNA PCR (Not Detecte) Coronavirus OC43 (PCR) (Not Detect) Coronavirus HKU1 (PCR) (Not Detect) Coronavirus 229E (PCR) (Not Detect) SARS-CoV-2 (PCR) (Not Detecte) Coronavirus NL63 (PCR) (Not Detect) Human Metapneumovir PCR (Not Detect) Influenza Type A (PCR) (Not Detect) Influenza Type B (PCR) (Not Detect) M. pneumoniae (PCR) (Not Detect) Parainfluenza 1 (PCR) (Not Detect) Parainfluenza 2 (PCR) (Not Detect) Parainfluenza 3 (PCR) (Not Detect) Parainfluenza 4 (PCR) (Not Detect) RSV (PCR) (Not Detect) Entero/Rhino (PCR) (Not Detect) 04/03/22 04/03/22 Range/Units 02:00 04:12 WBC (4.5-11.0) X10^3/uL RBC (4.5-5.9) X10^6/uL Hgb (13.5-17.5) g/dL Hct (41-53) % MCV (80-100) fL MCH (26-34) PG MCHC (30-36) % RDW (11.6-14.8) % Plt Count (150-400) X10^3/uL Neut % (Auto) (50-75) % Lymph % (Auto) (25-40) % [place] % (Auto) (3-14) % Eos % (Auto) (2-4) % Baso % (Auto) (0-2) % Neut # (Auto) (7802-3897) /uL Lymph # (Auto) (1697-5751) /uL [place] # (Auto) (0-900) /uL Eos # (Auto) (0-450) /uL Baso # (Auto) (0-100) /uL PT (10.1-12.7) SECONDS INR (0.9-1.3) Sodium (137-145) mmol/L Potassium (3.4-5.1) mmol/L Chloride (98-107) mmol/L Carbon Dioxide (22-32) mmol/L BUN (9-20) mg/dL Creatinine (0.66-1.25) mg/dL Estimated GFR (>60) mL/min BUN/Creatinine Ratio (6-22) Glucose (80-110) mg/dL Lactate 1.8 (0.7-2.1) mmol/L Calcium (8.4-10.2) mg/dL Total Bilirubin (0.2-1.3) mg/dL AST (17-59) IU/L ALT (<50) IU/L Alkaline Phosphatase (38-126) U/L Troponin I (0.01-0.034) ng/mL NT-Pro-B Natriuret Pep (<125) pg/mL Total Protein (6.3-8.2) g/dL Albumin (3.5-5.0) g/dL Globulin (1.7-4.1) g/dL Albumin/Globulin Ratio (1.0-2.8) Chlamy pneumoniae PCR Not detected (Not Detect) Adenovirus (PCR) Not detected (Not Detect) B. pertussis DNA (PCR) Not detected (Not Detecte) B.parapertussis DNA PCR Not detected (Not Detecte) Coronavirus OC43 (PCR) Not detected (Not Detect) Coronavirus HKU1 (PCR) Not detected (Not Detect) Coronavirus 229E (PCR) Not detected (Not Detect) SARS-CoV-2 (PCR) Not detected (Not Detecte) Coronavirus NL63 (PCR) Not detected (Not Detect) Human Metapneumovir PCR Not detected (Not Detect) Influenza Type A (PCR) Not detected (Not Detect) Influenza Type B (PCR) Not detected (Not Detect) M. pneumoniae (PCR) Not detected (Not Detect) Parainfluenza 1 (PCR) Not detected (Not Detect) Parainfluenza 2 (PCR) Not detected (Not Detect) Parainfluenza 3 (PCR) Not detected (Not Detect) Parainfluenza 4 (PCR) Not detected (Not Detect) RSV (PCR) Not detected (Not Detect) Entero/Rhino (PCR) Not detected (Not Detect) Imaging Data Chest x-ray: Radiologist's Impression: FINDINGS:? ? Surgical changes and devices:? Left chest wall AICD and dual leads appear similar to the prior study.? Postsurgical changes redemonstrated within the mediastinum. ? Lungs and pleura:? There is pulmonary vascular prominence suggestive of mild edema.? No pleural effusions or pneumothorax.? ? Mediastinum:? Mediastinal contours are unchanged.? Heart size is enlarged. ? Bones and chest wall:? No suspicious bony lesions.? Overlying soft tissues appear unremarkable.? ? IMPRESSION:? ? 1. Mild pulmonary edema and cardiomegaly suggestive of congestive heart failure.? ? ? Dictated by: Arias Schulte M.D. on 04/03/2022 at 2:20 ? ? ECG Data Interpretation: Sinus rhythm at a rate of [address] changes MDM Narrative Medical decision making narrative: 71-year-old gentleman presents with increasing dyspnea. I believe the majority of his symptoms started with an acute asthma exacerbation due to environmental smoke a couple of weeks ago. As his wheezing progressed, there was more cardiac stress with increased heart rate which has resulted in worsening congestive h eart failure. He also has a slight creatinine bump in whether this is from poor perfusion or bladder outlet obstruction symptoms is unclear. Cuellar catheter will be placed to see what retained urine volume currently is and allow him to sleep while we are appropriately diuresing him. The giving steroids and IV magnesium to help with his wheezing. DuoNeb is ordered. At this point I do not suspect acute coronary syndrome, sepsis nor bacterial pneumonia. Respiratory panel is pending. Hospitalization is anticipated. Care is reviewed with the hospitalist service. Patient will be admitted. Discharge Plan Departure Patient Disposition: Admitted As Inpatient Clinical Impression: Acute kidney injury, Acute on chronic urinary retention Acute asthma exacerbation Qualifiers: Asthma severity: severe Asthma persistence: unspecified Qualified Code(s): J45.901 - Unspecified asthma with (acute) exacerbation Acute CHF (congestive heart failure) Qualifiers: Heart failure type: unspecified Qualified Code(s): I50.9 - Heart failure, unspecified
[2022-04-03] MEDS: ALBUTEROL/IPRATROPIUM 3 ML AMPUL INH ×4 (04:27→23:12)
[2022-04-03] MEDS: methylPREDNISolone 125 MG/2 ML VIAL IV (04:35)
[2022-04-03] MEDS: FUROSEMIDE 100 MG/10 ML VIAL 80 MG IV (04:36)
[2022-04-03] MEDS: MAGNESIUM SULFATE 2 GM/50 ML PIGGYBACK IV (04:36)
[2022-04-03 05:33] LABS: Adenovirus Not Detected (Not Detect); B. parapertussis Not Detected (Not Detecte); Bordetella pertussis Not Detected (Not Detecte); Chlamydophila pneumoniae Not Detected (Not Detect); Coronavirus 229E Not Detected (Not Detect); Coronavirus HKU1 Not Detected (Not Detect); Coronavirus NL 63 Not Detected (Not Detect); Coronavirus OC43 Not Detected (Not Detect); Human Metapneumovirus Not Detected (Not Detect); Human Rhinovirus/Enterovirus Not Detected (Not Detect); Influenza A Not Detected (Not Detect); Influenza B Not Detected (Not Detect); Mycoplasma pneumoniae Not Detected (Not Detect); Parainfluenza Virus 1 Not Detected (Not Detect); Parainfluenza Virus 2 Not Detected (Not Detect); Parainfluenza Virus 3 Not Detected (Not Detect); Parainfluenza Virus 4 Not Detected (Not Detect); Respiratory Syncytial Virus Not Detected (Not Detect); SARS- CoV-2 Not Detected (Not Detecte)
--- NOTE | 2022-04-03 05:53 | DI.ECHO.S_ITS ---
[facility] +---------+ : : [address] [place] : : : : [id number] : : : : Phone: [phone] Echocardiogram Report + + :Name: CHAVO ACUÑA Study Date: 04/03/2022 Height: 71 in : :[facility] ReadingLocation: Weight: 260 lb : : Gender: Male BSA: 2.4 m2 : :: 1950 Age: 71 yrs BP: 107/69 mmHg: :Reason For Study: Congestive Heart Failure : :Ordering Physician: : :ARNAUD ANGELO Performed By: Parag Rai : :Referring: ARNAUD ANGELO : + + Interpretation Summary Indeterminate rhythm. Suspect afib with chronic RV pacing. Heart rate is 90-95 bpm. Mildly dilated LV with normal wall thickness. There is severe global hypokinesis. Ejection fraction is estimated at 15-25%. Mild mitral annular calcification. Aortic valve leaflets are moderately thickened and calcified but open well. There is a pacing lead traversing the tricuspid valve. Compared to prior study 06/25/2020, cardiomyopathy is much worse. EF is down from 50% to 15-25%. Afib is new. Pacing lead is new Procedure: A two-dimensional transthoracic echocardiogram with color flow and Doppler was performed. The study quality was technically adequate. Comparison is made with the echocardiogram of 06/25/2020. A contrast injection of Definity was performed to improve assessment of LV function. Left Ventricle: The left ventricle is mildly dilated. There is normal left ventricular wall thickness. Left ventricular systolic function is severely reduced. Left ventricular ejection fraction is estimated to be 15 +/- 5%. There is severe global hypokinesis of the left ventricle. Diastolic function could not be accurately assessed due to paced rhythm. Right Ventricle: The right ventricle is mild to moderately dilated. Right ventricular systolic function is severely reduced. Atria: Both atria are moderately dilated. The interatrial septum grossly appears intact with no obvious evidence for an atrial septal defect. Mitral Valve: There is mild mitral annular calcification. There is mild mitral regurgitation. Aortic Valve: There is mild aortic valve sclerosis. There is mild aortic regurgitation. Tricuspid Valve: The tricuspid valve is normal in structure and function. There is moderate tricuspid regurgitation. The right ventricular systolic pressure is estimated to be at least 40 mmHg based on an estimated right atrial pressure of 15 mm Hg. Pulmonic Valve: The pulmonic valve is normal in structure and function. There is a trace or physiologic amount of pulmonic regurgitation. Great Vessels: The aortic root is normal size. The IVC is dilated (diameter is greater than 2.1 cm) and it collapses less than 50% with a sniff. This suggests a high right atrial pressure of 15 mm Hg. Pericardium/ Pleura There is no pericardial effusion. There is no pleural effusion. MMode/2D Measurements & Calculations LVIDd: 6.1 cm LVOT diam: 2.4 cm LVIDs: 5.6 cm Ao root diam: 4.0 cm FS: 8.9 % IVSd: 0.93 cm LVPWd: 0.66 cm LV hartley. diameter/BSA (cm/m^2): 2.6 LV sys. diameter/BSA (cm/m^2): 2.4 LA A2 area: 27.5 cm2 RA long axis: 5.5 cm LA A4 area: 29.6 cm2 RA area: 23.1 cm2 LA length (vol): 6.6 cm RA vol: 82.6 ml LA vol: 104.2 ml RA : 35.0 ml/m2 LA vol index: 44.2 ml/m2 IVC diam: 3.3 cm RVD1 (basal): 4.2 cm TAPSE: 0.79 cm Doppler Measurements & Calculations Ao V2 max: 109.6 cm/sec LVOT Max Connor: 65.7 cm/sec Ao V2 mean: 82.7 cm/sec LV V1 max P.7 mmHg Ao max P.8 mmHg LV V1 VTI: 9.6 cm Ao mean P.0 mmHg CECILLE(I,D): 2.5 cm2 Ao V2 VTI: 16.7 cm CECILLE(V,D): 2.7 cm2 sev ratio: 0.57 CECILLE indexed to BSA (cm^2/m^2): 1.1 TR max connor: 248.6 cm/sec SV(LVOT): 42.3 ml TR max P.7 mmHg Electronically signed by: Rach Steele M.D. on Reading Physician:04/03/2022 12:17 PM
--- NOTE | 2022-04-03 05:58 | P.HP_ITS ---
History of Present Illness History of Present Illness Date Patient Seen: 04/03/22 Time Patient Seen: 05:30 Chief complaint: DIFFICULTY BREATHING Narrative: Mr. Flaherty is a 71M with PMH CAD s/p CABG, afib, former smoker, previous v fib cardiac arrest s/p AICD, EF cof 50%, HTN, HL, BPH who presents to the hospital with shortness of breath. He has had PFTs within the last few months which showed mild obstructive pattern, but he has no former diagnosis of COPD. He states that he began to have shortness of breath weeks ago when smoke in air became bad. He also noted coughing green sputum. He notes lower extremity edema, and shortness of breath worse with activity. He has no fever/chills. He denies chest pain. in the ED workup was done, vitals notable for tachycardia, and tachypnea. Labs notable for WBC 7.5, hgb 14.1. Creatinine 1.61. Trop negative. BNP 8810. Respiratory PCR panel negative. Chest xray shows pulmonary edema and cardiomegaly. He was ordered for steroids, nebs, and lasix and admitted for further treatment. Family history: denies any cardiac history in family Patient History Medical History Atrial fibrillation Cardiac arrest with ventricular fibrillation Carotid artery disease (Unknown) Coronary artery disease involving [place] coronary artery of [place] heart without angina pectoris (12/02/15) Disc degeneration (~2003) Essential hypertension (12/02/15) History of diverticulitis (Unknown) Hyperlipidemia (Unknown) Hypertension (Unknown) Nephrolithiasis (Unknown) Psoriasis (Unknown) Pure hypercholesterolemia (12/02/15) Surgical History AICD (automatic cardioverter/defibrillator) present (~06/2020) H/O transurethral destruction of bladder lesion Status post coronary artery bypass graft Status post knee surgery Status post tonsillectomy and adenoidectomy Family & Social History Social History: household members spouse Safety & Behavioral: Feels Safe in Current Yes Environment Been Physically Hurt or No Threatened By a Person Tobacco & Substance use: Smoking Status Former smoker alcohol intake former alcohol intake frequency 0-2 drinks per day Substance Use Type does not use Meds Home Medications and Allergies Home Medications Medication Instructions Recorded Confirmed Type finasteride 5 mg tablet 5 mg PO QDAY #90 tabs 02/13/16 07/17/21 Rx docusate sodium 100 mg capsule 100 mg PO BID 09/29/17 07/17/21 History terazosin 10 mg capsule 10 mg PO QHS 09/29/17 07/17/21 History apixaban 5 mg tablet (Eliquis) 5 mg PO BID 03/15/18 07/17/21 History isosorbide mononitrate 60 mg 60 mg PO DAILY 03/15/18 07/17/21 History tablet,extended release 24 hr niacin 500 mg tablet 500 mg PO DAILY 03/15/18 07/17/21 History nitroglycerin 0.4 mg sublingual 0.4 mg sublingual Q5-15M PRN 03/15/18 07/17/21 History tablet ranolazine 500 mg tablet,extended 500 mg PO BID 03/15/18 07/17/21 History release,12 hr rosuvastatin 40 mg tablet 40 mg PO DAILY 03/15/18 07/17/21 History ezetimibe 10 mg tablet (Zetia) 10 mg PO DAILY 02/23/20 07/17/21 History triamcinolone acetonide 0.1 % 1 applic topical BID 05/03/20 07/17/21 History topical cream metoprolol tartrate 37.5 mg tablet 37.5 mg PO BID 03/05/21 07/17/21 History omeprazole 20 mg tablet,delayed 20 mg PO DAILY #90 tabs 09/15/21 Rx release sucralfate 1 gram tablet 1 g PO BID #180 tabs 10/14/21 Rx lisinopril 10 mg tablet 5 mg PO DAILY #90 tabs 02/02/22 Rx Allergies Allergy/AdvReac Type Severity Reaction Status Date / Time No Known Drug Allergies Allergy Verified 07/17/21 11:30 Review of Systems Review of Systems Narrative: 14 systems reviewed and negative aside from what is noted in HPI Exam Vital Signs (past 8 hours): - 04/03/22 01:34 04/03/22 01:53 04/03/22 04:28 Temperature 98.4 F Pulse Rate 100 H 100 H Respiratory Rate 20 24 Pulse Oximetry 97 97 Oxygen Delivery Method Room Air Room Air Room Air Oxygen Delivery Method Room Air Narrative Exam Narrative: GEN: respiratory distress, poor hygiene HEENT: moist mucous membranes, PERRL NECK: trachea midline, no JVD PULM: wheezes bilaterally CV: tachycardic, regular ABD: soft, nontender, nondistended, no organomegaly EXT: warm and well perfused with 2+ bilateral pitting edema NEURO: awake, alert oriented, with no focal deficits Objective Labs Result Diagrams: 04/03/22 02:00 04/03/22 02:00 Labs: Laboratory Results - last 24 hr 04/03/22 04/03/22 04/03/22 02:00 02:00 02:00 WBC 7.5 RBC 4.98 Hgb 14.1 Hct 43.5 MCV 87.4 MCH 28.3 MCHC 32.4 RDW 16.7 H Plt Count 131 L Neut % (Auto) 74.9 Lymph % (Auto) 17.0 L [place] % (Auto) 5.9 Eos % (Auto) 1.5 L Baso % (Auto) 0.7 Neut # (Auto) 5600 Lymph # (Auto) 1300 [place] # (Auto) 400 Eos # (Auto) 100 Baso # (Auto) 100 PT 15.2 H INR 1.3 Sodium 135 L Potassium 5.1 Chloride 105 Carbon Dioxide 20 L BUN 31 H Creatinine 1.61 H Estimated GFR 46 L BUN/Creatinine Ratio 19.3 Glucose 203 H Lactate Calcium 8.5 Total Bilirubin 1.1 AST 14 L ALT 17 Alkaline Phosphatase 46 Troponin I < 0.012 NT-Pro-B Natriuret Pep 8810 H Total Protein 6.6 Albumin 3.8 Globulin 2.8 Albumin/Globulin Ratio 1.4 Chlamy pneumoniae PCR Adenovirus (PCR) B. pertussis DNA (PCR) B.parapertussis DNA PCR Coronavirus OC43 (PCR) Coronavirus HKU1 (PCR) Coronavirus 229E (PCR) SARS-CoV-2 (PCR) Coronavirus NL63 (PCR) Human Metapneumovir PCR Influenza Type A (PCR) Influenza Type B (PCR) M. pneumoniae (PCR) Parainfluenza 1 (PCR) Parainfluenza 2 (PCR) Parainfluenza 3 (PCR) Parainfluenza 4 (PCR) RSV (PCR) Entero/Rhino (PCR) 04/03/22 04/03/22 02:00 04:12 WBC RBC Hgb Hct MCV MCH MCHC RDW Plt Count Neut % (Auto) Lymph % (Auto) [place] % (Auto) Eos % (Auto) Baso % (Auto) Neut # (Auto) Lymph # (Auto) [place] # (Auto) Eos # (Auto) Baso # (Auto) PT INR Sodium Potassium Chloride Carbon Dioxide BUN Creatinine Estimated GFR BUN/Creatinine Ratio Glucose Lactate 1.8 Calcium Total Bilirubin AST ALT Alkaline Phosphatase Troponin I NT-Pro-B Natriuret Pep Total Protein Albumin Globulin Albumin/Globulin Ratio Chlamy pneumoniae PCR Not detected Adenovirus (PCR) Not detected B. pertussis DNA (PCR) Not detected B.parapertussis DNA PCR Not detected Coronavirus OC43 (PCR) Not detected Coronavirus HKU1 (PCR) Not detected Coronavirus 229E (PCR) Not detected SARS-CoV-2 (PCR) Not detected Coronavirus NL63 (PCR) Not detected Human Metapneumovir PCR Not detected Influenza Type A (PCR) Not detected Influenza Type B (PCR) Not detected M. pneumoniae (PCR) Not detected Parainfluenza 1 (PCR) Not detected Parainfluenza 2 (PCR) Not detected Parainfluenza 3 (PCR) Not detected Parainfluenza 4 (PCR) Not detected RSV (PCR) Not detected Entero/Rhino (PCR) Not detected Assessment & Plan Assessment & Plan narrative: 1. Acute respiratory distress -secondary to new acute CHF exacerbation with acute pulmonary edema -also possible component of COPD exacerbation -trend troponins to rule out ACS -continue IV lasix, goal negative negative 2-3L -low salt diet, fluid restriction -ECHO ordered -ordered for nebs, steroids, and azithromycin for possible reactive airway/COPD exacerbation 2. GUILLE secondary to acute urinary retention -admit creatinine 1.61, baseline creatinine 1.2- 1.3 -likely secondary to acute urinary retention, vs hypervolemia -small placed in ED, good urine output -may need to keep small in palce and follow up as outpatient with urology -trend creatinine daily 3. Paroxysmal atrial fibrillation -continue apixaban, metoprolol -currently in sinus 4. CAD s/p previous cardiac arrest s/p AICD -continue above meds, and also continue imdur, ranolazine -hold lisinopril for now Patient is in quite significant respiratory distress on admission. Suspect he will need multiple days of treatment for two processes, possible COPD exacerbation, and new heart failure diagnosis. Complicating this is renal failure. Patient therefore suspected two stay over two midnights CODE: Full Proxy: Spring Reynold, spouse I have utilized all available resources to reconcile the patient's home medications. Time Spent With Patient Critical Care time: I spent a total of [] minutes of critical care time on this patient's care today; this time is exclusive of procedural time.
--- NOTE | 2022-04-03 10:05 | PC.NURSE ---
catheter present upon RN arrival to unit, charted under self.
[2022-04-03 11:59] LABS: Troponin I < 0.012 ng/mL (0.01-0.034)
[2022-04-03] MEDS: AZITHROMYCIN 500 MG in DEXTROSE 5% IN WATER 250 ML 250 MG IV (12:01)
[2022-04-03] MEDS: predniSONE 20 MG TABLET 40 MG PO (12:03)
[2022-04-03] MEDS: FUROSEMIDE 100 MG/10 ML VIAL 60 MG IV (12:03)
[2022-04-03] MEDS: METOPROLOL IR 25 MG TABLET 37.5 MG PO ×2 (12:03→20:54)
[2022-04-03] MEDS: FINASTERIDE 5 MG TABLET PO (12:04)
[2022-04-03] MEDS: ISOSORBIDE MONONITRATE ER 30 MG TABLET 60 MG PO (12:04)
[2022-04-03] MEDS: APIXABAN 5 MG TABLET PO ×2 (12:05→20:56)
[2022-04-03] MEDS: RANOLAZINE 500 MG TAB.ER.12H PO ×2 (12:05→20:54)
--- NOTE | 2022-04-03 19:25 | PC.NURSE ---
Pt arrived from ED this afternoon. VSS,afebrile on RA. Noted slight SOB with exertion but tolerating RA well. General obesity but no edema to B feet noted. No audible wheezing. He is able to tolerate dinner and on fluid restriction. Placed on telemetry. MD Granados arrived and assessed patient at bedside this evening. Continuous monitoring. Call light in reach.
[2022-04-03] MEDS: ATORVASTATIN 20 MG TABLET 80 MG PO (20:56)
[2022-04-03] MEDS: TERAZOSIN 5 MG CAPSULE 10 MG PO (20:56)
[2022-04-04] VITALS (12 sets, daily range): BP systolic 85–115; BP diastolic 53–94; PULSE 102–112; RESP 14–20; TEMP 36.1–36.8; O2SAT 92–107
[2022-04-04] MEDS: FUROSEMIDE 100 MG/10 ML VIAL 60 MG IV (00:03)
[2022-04-04] MEDS: ALBUTEROL 2.5 MG/3 ML NEB (ADULT) INH (03:46)
[2022-04-04 05:47] LABS: Add Manual Diff / Slide Review NO; Basophils Absolute Auto 0 /uL (0-100); Basophils Percent Auto 0.2 % (0-2); Eosinophils Absolute Auto 0 /uL (0-450); Eosinophils Percent Auto 0.1 % (2-4); Hematocrit 38.1 % (41-53); Hemoglobin 12.6 g/dL (13.5-17.5); Lymphocytes Absolute Auto 1200 /uL (1100-4500); Lymphocytes Percent Auto 18.2 % (25-40); Mean Corpuscular Hemoglobin 28.2 PG (26-34); Mean Corpuscular Volume 85.5 fL (80-100); Monocytes Absolute Auto 400 /uL (0-900); Monocytes Percent Auto 6.4 % (3-14); Neutrophils Absolute Auto 5000 /uL (1500-7000); Neutrophils Percent Auto 75.1 % (50-75); Platelet Count 116 X10^3/uL (150-400); Red Blood Cell Count 4.46 X10^6/uL (4.5-5.9); Red Cell Distribution Width 15.9 % (11.6-14.8); White Blood Cell Count 6.7 X10^3/uL (4.5-11.0)
[2022-04-04 06:00] LABS: Blood Urea Nitrogen 42 mg/dL (9-20); Calcium 8.3 mg/dL (8.4-10.2); Carbon Dioxide 26 mmol/L (22-32); Chloride 99 mmol/L (98-107); Estimated Glomerular Filt Rate 37 mL/min (>60); Glucose 158 mg/dL (80-110); HEMOLYSIS < 15 (0-50); Magnesium 1.9 mg/dL (1.6-2.3); Potassium 4.3 mmol/L (3.4-5.1); Sodium 135 mmol/L (137-145)
[2022-04-04] MEDS: ALBUTEROL/IPRATROPIUM 3 ML AMPUL INH ×4 (09:17→23:14)
[2022-04-04] MEDS: RANOLAZINE 500 MG TAB.ER.12H PO ×2 (10:37→21:53)
[2022-04-04] MEDS: TORSEMIDE 10 MG TABLET 40 MG PO (10:38)
[2022-04-04] MEDS: ISOSORBIDE MONONITRATE ER 30 MG TABLET 60 MG PO (10:38)
[2022-04-04] MEDS: METOPROLOL IR 25 MG TABLET 37.5 MG PO ×2 (10:39→21:49)
[2022-04-04] MEDS: APIXABAN 5 MG TABLET PO ×2 (10:39→21:51)
[2022-04-04] MEDS: predniSONE 20 MG TABLET 40 MG PO (10:41)
[2022-04-04] MEDS: FINASTERIDE 5 MG TABLET PO (10:42)
[2022-04-04] MEDS: AZITHROMYCIN 500 MG in DEXTROSE 5% IN WATER 250 ML 250 MG IV (11:50)
[2022-04-04] MEDS: AMIODARONE 200 MG TABLET PO (13:36)
--- NOTE | 2022-04-04 14:47 | CM.DANOTE ---
Initial DCP Assessment Note Pt is a 71 yo male, resident of [place], arrives with difficulty in breathing and admitted as an inpatient for cardiac w/u and medical management of Acute respiratory distress secondary to new acute CHF exacerbation with acute pulmonary edema PCP: Blair Wilson Payer: Evelyn Torres CM team will plan to follow closely for any DC needs or concerns that might arise, HH services may be beneficial upon DC. Expect patient will be able to DC home to the care of his , r/o need for HH closer to DC JIMENA Bettencourt Discharge Planning/Care Management CM Discharge Assessment Start: 04/04/22 14:44 Freq: Status: Active Protocol: Document 04/04/22 14:44 MARY (Rec: 04/04/22 14:47 MARY [id number]) Discharge Planning Assessment Assigned Custom Dressmaker JIMENA Viramontes DPOA/Assigned Designee Name Spring Flaherty, spouse Contact Information [phone], Advance Directives? No History Provided By Patient,Medical Record Prior Living Arrangements House Household Members spouse Independent with ADL's Yes Is patient alert and oriented? Yes Patient/Family Preference Home with Home Health Comment TBD Discharge Plan Home Transportation Arrangement Family
--- NOTE | 2022-04-04 19:01 | P.PN_ITS ---
Subjective Subjective Interval history: 71-year-old gentleman with coronary artery disease status post previous CABG, atrial fibrillation, history of VFib arrest status post AICD, hypertension, hyperlipidemia, BPH, and prior tobacco dependence who was admitted early yesterday morning with acute CHF exacerbation, GUILLE secondary to urinary retention, paroxysmal AFib (in sinus rhythm on admission). Patient was admitted and placed on IV diuresis. He underwent an echocardiogram which showed a significant decrease in his ejection fraction from prior of 45- 50% 1 year ago down to 15-25% now. Dr. Steele felt likely that it was worsening secondary to poor control of his atrial fibrillation. When he is had device checks over the past several months, he is typically in AFib with poorly controlled ventricular rate. Dr. Vicente came and assessed the patient last evening, as he is the patient's primary outpatient ged instructor. He recommended restarting patient's amiodarone which was not listed on the home medications, discontinuation of lisinopril and adding Entresto 09/03/2025 once daily, increasing metoprolol to 50 mg twice daily, adding Jardiance 10 mg daily for cardiac benefit, torsemide 40 mg daily, and resumption of Eliquis, which was also not in the patient's home medication list. Patient confirms today that he is on amiodarone and Eliquis routinely at home. Entresto was not on formulary but we are able to call it in today to [facility] and his and daughter picked it up and brought it to the hospital such that he could initiate treatment. He reports he is feeling better overall today. He reports less dyspnea, less leg swelling. He states he feels much better. He is a bit reluctant to discontinue his Cuellar catheter at he states he feeling ?lazy?. Denies any chest pain. He understands there is a plan to pursue cardioversion in the coming weeks once his CHF has been better controlled Exam Vital Signs (past 8 hours): - 04/04/22 11:48 04/04/22 12:00 04/04/22 17:30 Temperature 97.4 F L 98.3 F Pulse Rate 105 H 105 H 104 H Respiratory Rate 14 18 20 Blood Pressure 96/94 H 115/53 L Pulse Oximetry 97 92 95 Oxygen Delivery Method Room Air Oxygen Flow Rate 0 Oxygen Delivery Method Room Air Oxygen Flow Rate 0 Narrative Exam Narrative: GEN: Very pleasant middle-aged male, Alert and oriented x 3, NAD HEENT:NC, Face symmetric CHEST: Respiratory excursions symmetric, CTAB CV: RRR, no M/R/G ABD: Soft, obese, NT/ND, BT present in all 4 quadrants, body habitus limits exam EXTR: warm, well perfused, no C/C/E SKIN: warm and dry, no rash NEURO: Alert and oriented x 3, nonfocal Objective Labs Result Diagrams: 04/04/22 05:40 04/04/22 05:40 Labs: Laboratory Results - last 24 hr 04/04/22 04/04/22 05:40 05:40 WBC 6.7 RBC 4.46 L Hgb 12.6 L Hct 38.1 L MCV 85.5 MCH 28.2 MCHC 33.0 RDW 15.9 H Plt Count 116 L Neut % (Auto) 75.1 H Lymph % (Auto) 18.2 L [place] % (Auto) 6.4 Eos % (Auto) 0.1 L Baso % (Auto) 0.2 Neut # (Auto) 5000 Lymph # (Auto) 1200 [place] # (Auto) 400 Eos # (Auto) 0 Baso # (Auto) 0 Sodium 135 L Potassium 4.3 Chloride 99 Carbon Dioxide 26 BUN 42 H Creatinine 1.91 H Estimated GFR 37 L BUN/Creatinine Ratio 22.0 Glucose 158 H Calcium 8.3 L Magnesium 1.9 PFSH Medical History Atrial fibrillation Cardiac arrest with ventricular fibrillation Carotid artery disease (Unknown) Coronary artery disease involving [place] coronary artery of [place] heart without angina pectoris (12/02/15) Disc degeneration (~2003) Essential hypertension (12/02/15) History of diverticulitis (Unknown) Hyperlipidemia (Unknown) Hypertension (Unknown) Nephrolithiasis (Unknown) Psoriasis (Unknown) Pure hypercholesterolemia (12/02/15) Surgical History AICD (automatic cardioverter/defibrillator) present (~06/2020) H/O transurethral destruction of bladder lesion Status post coronary artery bypass graft Status post knee surgery Status post tonsillectomy and adenoidectomy Social History marital status: household members: spouse 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 Acute systolic congestive heart failure Appreciate input per patient's outpatient ged instructor. Furosemide discontinued last evening and patient initiated oral torsemide this morning. He reports ongoing good urine output. Adding Entresto today as recommended. Will resume his amiodarone. His blood pressures have remained somewhat low normal around 100 systolic. On an outpatient basis, he states he is typically in the 120s. Therefore will hold off on increasing the metoprolol from 37.5 b.i.d. to 50 b.i.d. for now. Jardiance is not on formulary but will be ordered at discharge. 2. Paroxysmal atrial fibrillation He is in sinus rhythm currently, but was in atrial flutter on admission. He has poor control of AFib based on previous device interrogations over the course of the summer and fall. As noted, amiodarone has been resumed. Metoprolol being continued at his usual outpatient dose until blood pressures normalized. Entresto added as noted above. Jardiance to be added for heart failure at discharge. 3. GUILLE secondary to urinary retention Creatinine was 1.3 on January 28. On admission it was 1.61. It is up to 1.91 today. Will plan a trial of Cuellar discontinuation. If he has ongoing retention issues, may require repeat catheterization and outpatient urology evaluation. Rise in creatinine today is likely secondary to IV diuresis. Given that he transitioned to oral torsemide today hopefully tomorrow morning's labs will have leveled off 4. Thrombocytopenia platelets on admission were 131, now down to 116. Will monitor. He has no evidence of bleeding. That said, he is on Eliquis. Will monitor. 5. Normocytic anemia On admission hemoglobin was 14.1. He is down to 12.6 today. Suspect this is spurious. Is no evidence of bleeding. Given that he was volume overloaded on admission I would expect that his hemoglobin would have been increasing rather than decreasing. Code status Full Prophylaxis On Eliquis Disposition Possible discharge home on April 06 or with a plan for close follow-up in the cardiology clinic. Time Spent With Patient Critical Care time: I spent a total of [] minutes of critical care time on this patient's care today; this time is exclusive of procedural time. Quality VTE Deep Vein Thrombosis/Pulmonary Embolism Present on Admission: No
--- NOTE | 2022-04-04 19:28 | PM.PN.1 ---
Subjective Subjective Date Patient Seen: 04/05/22 Interval history: 71-year-old gentleman with coronary artery disease status post previous CABG, atrial fibrillation, history of VFib arrest status post AICD, hypertension, hyperlipidemia, BPH, and prior tobacco dependence who was admitted early yesterday morning with acute CHF exacerbation, GUILLE secondary to urinary retention, paroxysmal AFib (in sinus rhythm on admission). Patient was admitted and placed on IV diuresis.? He underwent an echocardiogram which showed a significant decrease in his ejection fraction from prior of 45-50% 1 year ago down to 15-25% now.? Dr. Steele felt likely that it was worsening secondary to poor control of his atrial fibrillation.? When he is had device checks over the past several months, he is typically in AFib with poorly controlled ventricular rate.? Dr. Vicente came and assessed the patient on the evening of April 03, as he is the patient's primary outpatient manager workers compensation.? He recommended restarting patient's amiodarone which was not listed on the home medications, discontinuation of lisinopril and adding Entresto 09/03/2025 once daily, increasing metoprolol to 50 mg twice daily, adding Jardiance 10 mg daily for cardiac benefit, torsemide 40 mg daily, and resumption of Eliquis, which was also not in the patient's home medication list.? Patient confirms today that he is on amiodarone and Eliquis routinely at home.? Entresto was not on formulary but we were able to call it in to [facility] and his and daughter picked it up and brought it to the hospital such that he could initiate treatment. Reports he is feeling overall improved but similar to yesterday. He tolerated having his Cuellar catheter removed and has been voiding without difficulty. Denies any dyspnea or significant leg swelling. He had some mild hypotension this morning and was therefore only able to receive his Eliquis and amiodarone. His metoprolol and Entresto were held. He denies any chest pain. Exam Vital Signs (past 8 hours): - 04/04/22 11:48 04/04/22 12:00 04/04/22 17:30 Temperature 97.4 F L 98.3 F Pulse Rate 105 H 105 H 104 H Respiratory Rate 14 18 20 Blood Pressure 96/94 H 115/53 L Pulse Oximetry 97 92 95 Oxygen Delivery Method Room Air Oxygen Flow Rate 0 04/04/22 19:03 Temperature Pulse Rate Respiratory Rate Blood Pressure Pulse Oximetry Oxygen Delivery Method Room Air Oxygen Flow Rate Oxygen Delivery Method Room Air Oxygen Flow Rate 0 Narrative Exam Narrative: GEN:? Very pleasant middle-aged male, Alert and oriented x 3, NAD HEENT:NC, Face symmetric CHEST: Respiratory excursions symmetric, course, no wheezes CV: RRR, no M/R/G ABD: Soft, obese, NT/ND, BT present in all 4 quadrants, body habitus limits exam EXTR: warm, well perfused, no C/C/E SKIN: warm and dry, no rash NEURO: Alert and oriented x 3, nonfocal Objective Labs Result Diagrams: 04/05/22 09:05 04/05/22 09:05 Labs: Laboratory Results - last 24 hr 04/04/22 04/04/22 05:40 05:40 WBC 6.7 RBC 4.46 L Hgb 12.6 L Hct 38.1 L MCV 85.5 MCH 28.2 MCHC 33.0 RDW 15.9 H Plt Count 116 L Neut % (Auto) 75.1 H Lymph % (Auto) 18.2 L [place] % (Auto) 6.4 Eos % (Auto) 0.1 L Baso % (Auto) 0.2 Neut # (Auto) 5000 Lymph # (Auto) 1200 [place] # (Auto) 400 Eos # (Auto) 0 Baso # (Auto) 0 Sodium 135 L Potassium 4.3 Chloride 99 Carbon Dioxide 26 BUN 42 H Creatinine 1.91 H Estimated GFR 37 L BUN/Creatinine Ratio 22.0 Glucose 158 H Calcium 8.3 L Magnesium 1.9 PFSH Medical History Atrial fibrillation Cardiac arrest with ventricular fibrillation Carotid artery disease (Unknown) Coronary artery disease involving [place] coronary artery of [place] heart without angina pectoris (12/02/15) Disc degeneration (~2003) Essential hypertension (12/02/15) History of diverticulitis (Unknown) Hyperlipidemia (Unknown) Hypertension (Unknown) Nephrolithiasis (Unknown) Psoriasis (Unknown) Pure hypercholesterolemia (12/02/15) Surgical History AICD (automatic cardioverter/defibrillator) present (~06/2020) H/O transurethral destruction of bladder lesion Status post coronary artery bypass graft Status post knee surgery Status post tonsillectomy and adenoidectomy Social History marital status: household members: spouse 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 Acute systolic congestive heart failure Appreciate input per patient's outpatient manager workers compensation.? He did receive Entresto and torsemide yesterday. Unfortunately his blood pressures been a bit too low today. Holding parameters were ordered. Will continue to give when blood pressures can tolerate. His manager workers compensation's recommendation is for the following: Torsemide 40 mg daily, Entresto 24-26 daily, Jardiance 10 mg daily, Eliquis b.i.d., amiodarone 200 mg daily. He also hopes to titrate his metoprolol to 50 mg b.i.d.. It is felt that the patient's worsening systolic function is secondary to poorly controlled atrial fibrillation. 2. Paroxysmal atrial fibrillation He is in sinus rhythm currently, but was in atrial flutter on admission.? He has poor control of AFib based on previous device interrogations over the course of the summer and fall.? As above. Presently in sinus rhythm. 3. GUILLE secondary to urinary retention Creatinine was 1.3 on January 28.? On admission it was 1.61.? It was up to 1.91 yesterday, today down to 1.73. Cuellar catheter was discontinued and he is voiding without difficulty. Suspect his creatinine bump is secondary to IV diuresis. 4. Thrombocytopenia platelets on admission were 131, down to 116 yesterday and rebounding to 137 today. He has no evidence of bleeding.? He remains on Eliquis anticoagulation 5. Normocytic anemia On admission hemoglobin was 14.1.? It did drop to 12.6 yesterday but is back to 13.5 today. 6. COPD Suspected exacerbation on admission. He was placed on 40 mg of prednisone daily. Will decrease to 30 mg today. 7. Chronic sinus disease Patient takes Flonase at home. This has been ordered here. Code status Full Prophylaxis On Eliquis Disposition Hopeful to discharge home tomorrow if his blood pressures are stable. Dr. Vicente request that he be notified as he will get the patient into the cardiology clinic either April 07 or . ? Time Spent With Patient Critical Care time: I spent a total of [] minutes of critical care time on this patient's care today; this time is exclusive of procedural time. Quality VTE Deep Vein Thrombosis/Pulmonary Embolism Present on Admission: No
[2022-04-04] MEDS: TERAZOSIN 5 MG CAPSULE 10 MG PO (21:51)
[2022-04-04] MEDS: ATORVASTATIN 20 MG TABLET 80 MG PO (21:52)
[2022-04-05] VITALS (9 sets, daily range): BP systolic 88–116; BP diastolic 49–76; PULSE 71–115; RESP 14–20; TEMP 35.9–36.7; O2SAT 90–97
[2022-04-05 09:44] LABS: Add Manual Diff / Slide Review NO; Basophils Absolute Auto 0 /uL (0-100); Basophils Percent Auto 0.3 % (0-2); Eosinophils Absolute Auto 0 /uL (0-450); Hematocrit 42.1 % (41-53); Hemoglobin 13.5 g/dL (13.5-17.5); Lymphocytes Absolute Auto 1500 /uL (1100-4500); Lymphocytes Percent Auto 24.3 % (25-40); Mean Corpuscular HGB Conc 32.2 % (30-36); Mean Corpuscular Hemoglobin 27.8 PG (26-34); Mean Corpuscular Volume 86.4 fL (80-100); Monocytes Absolute Auto 300 /uL (0-900); Monocytes Percent Auto 4.4 % (3-14); Neutrophils Absolute Auto 4400 /uL (1500-7000); Platelet Count 137 X10^3/uL (150-400); Red Blood Cell Count 4.87 X10^6/uL (4.5-5.9); Red Cell Distribution Width 16.2 % (11.6-14.8); White Blood Cell Count 6.2 X10^3/uL (4.5-11.0)
[2022-04-05 09:51] LABS: BUN Creatinine Ratio 28.9 (6-22); Blood Urea Nitrogen 50 mg/dL (9-20); Calcium 8.6 mg/dL (8.4-10.2); Carbon Dioxide 31 mmol/L (22-32); Chloride 98 mmol/L (98-107); Estimated Glomerular Filt Rate 42 mL/min (>60); Glucose 206 mg/dL (80-110); HEMOLYSIS < 15 (0-50); Potassium 3.9 mmol/L (3.4-5.1); Sodium 137 mmol/L (137-145)
[2022-04-05] MEDS: FINASTERIDE 5 MG TABLET PO (09:51)
[2022-04-05] MEDS: predniSONE 20 MG TABLET 40 MG PO (09:51)
[2022-04-05] MEDS: SODIUM CHLORIDE 0.9% FLUSH 10 ML IV (09:52)
[2022-04-05] MEDS: AMIODARONE 200 MG TABLET PO (10:48)
[2022-04-05] MEDS: APIXABAN 5 MG TABLET PO ×2 (10:48→20:20)
[2022-04-05] MEDS: AZITHROMYCIN 500 MG in DEXTROSE 5% IN WATER 250 ML 250 MG IV (11:27)
--- NOTE | 2022-04-05 19:02 | PC.NURSE ---
assumed care of patient from FLOWER Choi. patient is comfortable, sitting in chair at bedside. tolerating fluid restriction of 1200/day. PIV to left hand infiltrated, this was d/c'd. MD nayak w/ no iv access. report to NOC shift.
[2022-04-05] MEDS: TERAZOSIN 5 MG CAPSULE 10 MG PO (20:20)
[2022-04-05] MEDS: ATORVASTATIN 20 MG TABLET 80 MG PO (20:20)
[2022-04-05] MEDS: RANOLAZINE 500 MG TAB.ER.12H PO (20:22)
[2022-04-05] MEDS: ALBUTEROL/IPRATROPIUM 3 ML AMPUL INH (23:11)
[2022-04-06 04:45] VITALS: BP 110/84; PULSE 111; RESP 15; TEMP 36.8; O2SAT 97
[2022-04-06 07:10] LABS: Add Manual Diff / Slide Review NO; Basophils Absolute Auto 0 /uL (0-100); Basophils Percent Auto 0.2 % (0-2); Eosinophils Absolute Auto 0 /uL (0-450); Eosinophils Percent Auto 0.5 % (2-4); Hematocrit 42.3 % (41-53); Hemoglobin 13.7 g/dL (13.5-17.5); Lymphocytes Absolute Auto 1700 /uL (1100-4500); Lymphocytes Percent Auto 28.6 % (25-40); Mean Corpuscular HGB Conc 32.5 % (30-36); Mean Corpuscular Volume 86.2 fL (80-100); Monocytes Absolute Auto 500 /uL (0-900); Monocytes Percent Auto 7.9 % (3-14); Neutrophils Absolute Auto 3600 /uL (1500-7000); Neutrophils Percent Auto 62.8 % (50-75); Platelet Count 143 X10^3/uL (150-400); Red Blood Cell Count 4.91 X10^6/uL (4.5-5.9); Red Cell Distribution Width 16.2 % (11.6-14.8); White Blood Cell Count 5.8 X10^3/uL (4.5-11.0)
[2022-04-06 07:19] LABS: BUN Creatinine Ratio 33.1 (6-22); Blood Urea Nitrogen 41 mg/dL (9-20); Calcium 8.6 mg/dL (8.4-10.2); Carbon Dioxide 26 mmol/L (22-32); Chloride 101 mmol/L (98-107); Estimated Glomerular Filt Rate > 60 mL/min (>60); Glucose 164 mg/dL (80-110); HEMOLYSIS < 15 (0-50); Potassium 4.2 mmol/L (3.4-5.1); Sodium 137 mmol/L (137-145)
[2022-04-06] MEDS: AMIODARONE 200 MG TABLET PO (08:16)
[2022-04-06] MEDS: FINASTERIDE 5 MG TABLET PO (08:16)
[2022-04-06] MEDS: APIXABAN 5 MG TABLET PO (08:16)
[2022-04-06 08:17] VITALS: BP 104/73; PULSE 114
[2022-04-06] MEDS: predniSONE 20 MG TABLET 30 MG PO (08:17)
[2022-04-06 08:20] VITALS: BP 104/73; PULSE 114; RESP 18; TEMP 36.4; O2SAT 94
[2022-04-06] MEDS: RANOLAZINE 500 MG TAB.ER.12H PO (08:34)
[2022-04-06] MEDS: FLUTICASONE 120 SPRAY/16 GM SPRAY.SUSP NASAL (08:34)
--- NOTE | 2022-04-06 09:08 | PM.DS.1 ---
History of Present Illness History of Present Illness Date Patient Seen: 04/06/22 Time Patient Seen: 09:08 Chief complaint: DIFFICULTY BREATHING Narrative: Per Dr. Krishnamurthy, Mr. Flaherty is a 71M with PMH CAD s/p CABG, afib, former smoker, previous v fib cardiac arrest s/p AICD, EF cof 50%, HTN, HL, BPH who presents to the hospital with shortness of breath. He has had PFTs within the last few months which showed mild obstructive pattern, but he has no former diagnosis of COPD. He states that he began to have shortness of breath weeks ago when smoke in air became bad. He also noted coughing green sputum. He notes lower extremity edema, and shortness of breath worse with activity. He has no fever/chills. He denies chest pain. in the ED workup was done, vitals notable for tachycardia, and tachypnea. Labs notable for WBC 7.5, hgb 14.1. Creatinine 1.61. Trop negative. BNP 8810. Respiratory PCR panel negative. Chest xray shows pulmonary edema and cardiomegaly. He was ordered for steroids, nebs, and lasix and admitted for further treatment. Family history: denies any cardiac history in family Discharge Providers Provider Date of admission: 04/03/22 06:26 Discharge Date: 04/06/22 Primary care physician: Blair Wilson MD Discharge provider: Leandro Billingsley DO Summary Hospital Course Discharge Diagnosis: 1. Acute systolic congestive heart failure 2. Paroxysmal atrial fibrillation with RVR 3. GUILLE 4. Thrombocytopenia 5. Normocytic anemia 6.? COPD wihtout exacerbation 7.? Chronic sinus disease Hospital Course: This was a 71 year old male with PMH of CHF, paroxysmal afib, COPD who was admitted for acute CHF exacerbation. His symptoms improved with diuresis, but echocardiogram showed a newly decreased EF. His quality and reliability engineer recommended initiation of entresto, torsemide, jardiance, eliquis and amiodarone in addition to his rate control. His home evelyn-inhibitor was held prior to initiation of entresto. Decreased EF is thought to be rate related at this time. His rate did improve with beta iveth and amiodarone, and he will follow up with his quality and reliability engineer shortly after discharge for possible cardioversion. He was also noted to have an GUILLE on admission that is thought to be related to acute retention, for which a small was placed but he subsequently passed a trial of void later in his admission, so his creatinine bump may have been related to IV diuresis as well. Time Spent with Patient Time spent: Greater than 30 minutes Exam Vital Signs (past 8 hours): - 04/06/22 04:45 04/06/22 08:17 04/06/22 08:20 Temperature 98.3 F 97.5 F L Pulse Rate 111 H 114 H 114 H Respiratory Rate 15 18 Blood Pressure 110/84 104/73 104/73 Pulse Oximetry 97 94 Oxygen Flow Rate 0 0 Oxygen Delivery Method Room Air Oxygen Flow Rate 0 Narrative Exam Narrative: GEN:? Very pleasant middle-aged male, Alert and oriented x 3, NAD HEENT:NC, Face symmetric CHEST: Respiratory excursions symmetric, course, no wheezes CV: tachycardic but regular rhythm, no M/R/G ABD: Soft, obese, NT/ND, BT present in all 4 quadrants, body habitus limits exam EXTR: warm, well perfused, no C/C/E SKIN: warm and dry, no rash NEURO: Alert and oriented x 3, nonfocal Objective Labs Result Diagrams: 04/06/22 06:17 04/06/22 06:17 Labs: Laboratory Results - last 24 hr 04/05/22 04/05/22 04/06/22 09:05 09:05 06:17 WBC 6.2 5.8 RBC 4.87 4.91 Hgb 13.5 13.7 Hct 42.1 42.3 MCV 86.4 86.2 MCH 27.8 28.0 MCHC 32.2 32.5 RDW 16.2 H 16.2 H Plt Count 137 L 143 L Neut % (Auto) 71.0 62.8 Lymph % (Auto) 24.3 L 28.6 [place] % (Auto) 4.4 7.9 Eos % (Auto) 0.0 L 0.5 L Baso % (Auto) 0.3 0.2 Neut # (Auto) 4400 3600 Lymph # (Auto) 1500 1700 [place] # (Auto) 300 500 Eos # (Auto) 0 0 Baso # (Auto) 0 0 Sodium 137 Potassium 3.9 Chloride 98 Carbon Dioxide 31 BUN 50 H Creatinine 1.73 H Estimated GFR 42 L BUN/Creatinine Ratio 28.9 H Glucose 206 H Calcium 8.6 04/06/22 06:17 WBC RBC Hgb Hct MCV MCH MCHC RDW Plt Count Neut % (Auto) Lymph % (Auto) [place] % (Auto) Eos % (Auto) Baso % (Auto) Neut # (Auto) Lymph # (Auto) [place] # (Auto) Eos # (Auto) Baso # (Auto) Sodium 137 Potassium 4.2 Chloride 101 Carbon Dioxide 26 BUN 41 H Creatinine 1.24 Estimated GFR > 60 BUN/Creatinine Ratio 33.1 H Glucose 164 H Calcium 8.6 PFSH Medical History Atrial fibrillation Cardiac arrest with ventricular fibrillation Carotid artery disease (Unknown) Coronary artery disease involving [place] coronary artery of [place] heart without angina pectoris (12/02/15) Disc degeneration (~2003) Essential hypertension (12/02/15) History of diverticulitis (Unknown) Hyperlipidemia (Unknown) Hypertension (Unknown) Nephrolithiasis (Unknown) Psoriasis (Unknown) Pure hypercholesterolemia (12/02/15) Surgical History AICD (automatic cardioverter/defibrillator) present (~06/2020) H/O transurethral destruction of bladder lesion Status post coronary artery bypass graft Status post knee surgery Status post tonsillectomy and adenoidectomy Social History marital status: household members: spouse occupational status: employed ([employer]) Smoking Status: Former smoker alcohol intake: former substance use type: marijuana Discharge Plan Discharge Plan Patient Disposition: Home Provider Discharge Comment: You were admitted to the hospital with heart failure, please follow up with Dr. Vicente for continued medication adjustments. Discharge orders & Medications Prescriptions: New Entresto 24-26 mg tablet 1 tab PO BID Qty: 60 0RF amiodarone 200 mg Tablet 200 mg PO DAILY 30 Days Qty: 30 0RF torsemide 20 mg tablet 40 mg PO DAILY 30 Days Qty: 60 0RF prednisone 20 mg Tablet 30 mg PO DAILY 2 Days Qty: 6 0RF Jardiance 10 mg tablet 10 mg PO DAILY 30 Days Qty: 30 0RF Continued rosuvastatin 40 mg tablet 40 mg PO DAILY isosorbide mononitrate 60 mg tablet extended release 24 hr 60 mg PO DAILY niacin 500 mg tablet 500 mg PO BID nitroglycerin 0.4 mg tablet, sublingual 0.4 mg SL Q5-15M PRN (Reason: Chest Pain) ranolazine 500 mg tablet extended release 12 hr 500 mg PO BID apixaban [Eliquis] 5 mg tablet 5 mg PO BID finasteride 5 MG tablet 5 mg PO QDAY Qty: 90 0RF ezetimibe [Zetia] 10 mg tablet 10 mg PO DAILY omeprazole 20 mg tablet,delayed release (DR/EC) 20 mg PO DAILY Qty: 90 2RF sucralfate 1 gram tablet 1 g PO BID Qty: 180 1RF triamcinolone acetonide 0.1 % cream 1 applic topical BID docusate sodium 100 mg Capsule 100 mg PO DAILY terazosin 10 MG capsule 10 mg PO QHS metoprolol succinate 50 mg tablet extended release 24 hr 50 mg PO BID aspirin 81 mg Tablet,Delayed Release (Dr/Ec) 81 mg PO DAILY Discontinued lisinopril 10 mg tablet 10 mg PO DAILY Follow up/Referrals: Blair Wilson MD [Primary Care Provider] - Diet/Activity/Treatments Diet: Diet as Tolerated Activity: As tolerated Visit Report/Discharge Packet Instructions: DI for Heart Failure Discharge Data Primary Care Provider: Blair Wilson Quality VTE Deep Vein Thrombosis/Pulmonary Embolism Present on Admission: No
--- NOTE | 2022-04-06 10:42 | CM.DPC ---
DCP Discharge Home Per MD, pt is medically stable to d/c home today and already in the process of scheduling with [employer] Techn[employer] Dr. Vicente for close outpt follow up as Dr. Vicente consulted bedside with pt this weekend and MD does not feel pt will need or qualify for HH and pt declines HH as well. Plan: Patient to d/c home via spouse POV and outpt Cardiology f/u at d/c and no further SW needs at this time. JIMENA Faustin
== END 2022-04-06 11:50 | disposition home or self-care (01) | DRG 291 ==
LOC: ED 04:19 → AC 06:30
PROVIDERS: Family Medicine; Admitting Provider Internal Medicine; Emergency Provider Emergency Medicine; Family Provider Student in an Organized Health Care Education/Training Program; PCP Student in an Organized Health Care Education/Training Program; Referring Provider Emergency Medicine; Visit Provider Internal Medicine
DX: I11.0 Hypertensive heart disease with heart failure (principal); I50.21 Acute systolic (congestive) heart failure; N17.9 Acute kidney failure, unspecified; I48.0 Paroxysmal atrial fibrillation; I25.10 Atherosclerotic heart disease of native coronary artery without angina pectoris; D69.6 Thrombocytopenia, unspecified; J32.9 Chronic sinusitis, unspecified; J44.9 Chronic obstructive pulmonary disease, unspecified; E78.5 Hyperlipidemia, unspecified; N40.1 Benign prostatic hyperplasia with lower urinary tract symptoms; R33.8 Other retention of urine; Z79.01 Long term (current) use of anticoagulants; Z87.891 Personal history of nicotine dependence; Z95.1 Presence of aortocoronary bypass graft; Z20.822 Contact with and (suspected) exposure to COVID-19
CPT/HCPCS: 36415; 71045; 80048; 80053; 83605; 83735; 83880; 84484; 85025; 85610; 87633; 93005; 93010; 93306; 94640; 94760; 96365; 96366; 96367; 96375; 99285; C8929; J1940; J2930; J3475; J7613; Q9957

== ENCOUNTER → 2022-04-27 09:31 | Outpatient (CLI) | payer OTHER, SELFPAY ==
[2022-04-03 15:41] VITALS: BMI 38.4
[2022-04-27 10:52] LABS: Add Manual Diff / Slide Review NO; Basophils Absolute Auto 100 /uL (0-100); Basophils Percent Auto 0.8 % (0-2); Eosinophils Absolute Auto 200 /uL (0-450); Eosinophils Percent Auto 2.7 % (2-4); Hematocrit 48.5 % (41-53); Hemoglobin 16.3 g/dL (13.5-17.5); Lymphocytes Absolute Auto 2500 /uL (1100-4500); Lymphocytes Percent Auto 39.1 % (25-40); Mean Corpuscular HGB Conc 33.6 % (30-36); Mean Corpuscular Hemoglobin 28.4 PG (26-34); Mean Corpuscular Volume 84.8 fL (80-100); Monocytes Absolute Auto 500 /uL (0-900); Monocytes Percent Auto 6.9 % (3-14); Neutrophils Absolute Auto 3300 /uL (1500-7000); Neutrophils Percent Auto 50.5 % (50-75); Platelet Count 141 X10^3/uL (150-400); Red Blood Cell Count 5.72 X10^6/uL (4.5-5.9); Red Cell Distribution Width 15.7 % (11.6-14.8); White Blood Cell Count 6.5 X10^3/uL (4.5-11.0)
[2022-04-27 11:08] LABS: Alanine Aminotransferase 30 IU/L (<50); Albumin 4.3 g/dL (3.5-5.0); Albumin Globulin Ratio 1.2 (1.0-2.8); Alkaline Phosphatase 61 U/L (38-126); Aspartate Aminotransferase 32 IU/L (17-59); BUN Creatinine Ratio 20.8 (6-22); Bilirubin Total 0.9 mg/dL (0.2-1.3); Blood Urea Nitrogen 35 mg/dL (9-20); Calcium 9.2 mg/dL (8.4-10.2); Carbon Dioxide 26 mmol/L (22-32); Chloride 98 mmol/L (98-107); Estimated Glomerular Filt Rate 43 mL/min (>60); Globulin 3.5 g/dL (1.7-4.1); Glucose 176 mg/dL (80-110); HEMOLYSIS 17 (0-50); Potassium 4.2 mmol/L (3.4-5.1); Sodium 137 mmol/L (137-145); Total Protein 7.8 g/dL (6.3-8.2)
[2022-04-27 16:33] LABS: Hepatitis B Surface Antigen NEGATIVE s/c (NEGATIVE)
[2022-04-27 16:51] LABS: HIV 1 & 2 Ab/Ag 4th Gen Combo NEGATIVE (NEGATIVE); Hep C Virus Ab w/Reflex Quant NEGATIVE s/c (NEGATIVE)
[2022-04-28 03:33] LABS: Hepatitis B Surf AB Quant <3.1 mIU/mL (Immunity>9.9)
[2022-04-30 05:54] LABS: QuantiFERON Mitogen Value >10.00 IU/mL (.); QuantiFERON Nil Value 0.02 IU/mL (.); QuantiFERON TB Gold Plus Negative (Negative); QuantiFERON TB1 Ag Value 0.02 IU/mL (.); QuantiFERON TB2 Ag Value 0.04 IU/mL (.)
== END ==
PROVIDERS: Family Provider Student in an Organized Health Care Education/Training Program; PCP Student in an Organized Health Care Education/Training Program; Referring Provider Dermatology; Visit Provider Dermatology
DX: L40.0 Psoriasis vulgaris (principal)
CPT/HCPCS: 36415; 80053; 85025; 86480; 86706; 86803; 87340; 87389

== ENCOUNTER → 2022-07-20 08:23 | Outpatient (CLI) | payer OTHER, SELFPAY ==
[2022-04-03 15:41] VITALS: BMI 38.4
[2022-07-20 10:10] LABS: Alanine Aminotransferase 26 IU/L (<50); Albumin 4.1 g/dL (3.5-5.0); Albumin Globulin Ratio 1.5 (1.0-2.8); Alkaline Phosphatase 52 U/L (38-126); Aspartate Aminotransferase 27 IU/L (17-59); BUN Creatinine Ratio 18.4 (6-22); Bilirubin Total 1.3 mg/dL (0.2-1.3); Blood Urea Nitrogen 30 mg/dL (9-20); Calcium 8.6 mg/dL (8.4-10.2); Carbon Dioxide 27 mmol/L (22-32); Chloride 99 mmol/L (98-107); Estimated Glomerular Filt Rate 45 mL/min (>60); Globulin 2.7 g/dL (1.7-4.1); Glucose 196 mg/dL (80-110); HEMOLYSIS 40 (0-50); Potassium 4.4 mmol/L (3.4-5.1); Sodium 135 mmol/L (137-145); Total Protein 6.8 g/dL (6.3-8.2)
[2022-07-20 10:35] LABS: Thyroid Stimulating Hormone 3.29 uIU/mL (0.47-4.68)
== END ==
PROVIDERS: Family Provider Student in an Organized Health Care Education/Training Program; PCP Student in an Organized Health Care Education/Training Program; Referring Provider Nurse Practitioner Family; Visit Provider Nurse Practitioner Family
DX: I48.19 Other persistent atrial fibrillation (principal); Z79.899 Other long term (current) drug therapy
CPT/HCPCS: 36415; 80053; 84443

== ENCOUNTER → 2022-08-07 11:32 | Outpatient (CLI) | payer OTHER, SELFPAY ==
[2022-04-03 15:41] VITALS: BMI 38.4
--- NOTE | 2022-08-12 08:05 | P.PFT.S_ITS ---
Pulmonary Function Test Referral & Results Date Patient Seen: 08/07/22 Results: The spirometry demonstrates an FVC of 3.74 L which is 79% of predicted. The FEV1 was measured at 2.91 L which is 83% of predicted. The FEV1/FVC ratio was 78 which is 106% of predicted. Following the administration of bronchodilator there was 10% improvement in FEV1 and a 40% improvement in FEF 25-75%. Lung volumes show an SVC of 4.02 L which is 82% of predicted. The diffusing capacity was measured at 24.0 which is 70% of predicted. No hemoglobin value was provided, so no correction for potential anemia could be made, if appropriate. The maximum voluntary ventilation was reduced Interpretation: This study demonstrates mild obstructive lung disease based on minimal reduction FEV1 although FEV1/FVC ratio is preserved there is evidence of benefit post bronchodilator particularly in small airway flow based on improvement in FEF 25- 75% There is also minimal reduction in lung volumes suggesting the presence of mild restrictive lung disease There is a moderate reduction diffusing capacity suggesting more significant disease at the capillary alveolar level Compared to PFTs performed in November 2021, current study shows essentially no change in spirometry but improvement in diffusing capacity Clinical correlation suggested
== END ==
PROVIDERS: Family Provider Student in an Organized Health Care Education/Training Program; PCP Student in an Organized Health Care Education/Training Program; Referring Provider Nurse Practitioner Family; Visit Provider Nurse Practitioner Family
DX: J84.115 Respiratory bronchiolitis interstitial lung disease (principal); Z87.891 Personal history of nicotine dependence; Z79.899 Other long term (current) drug therapy
CPT/HCPCS: 94060; 94726; 94729

== ENCOUNTER → 2022-08-20 09:16 | Outpatient (CLI) | payer OTHER, SELFPAY ==
[2022-04-03 15:41] VITALS: BMI 38.4
[2022-08-20 10:19] LABS: Alanine Aminotransferase 26 IU/L (<50); Albumin 3.7 g/dL (3.5-5.0); Albumin Globulin Ratio 1.4 (1.0-2.8); Alkaline Phosphatase 53 U/L (38-126); Aspartate Aminotransferase 21 IU/L (17-59); BUN Creatinine Ratio 17.1 (6-22); Bilirubin Total 0.9 mg/dL (0.2-1.3); Blood Urea Nitrogen 27 mg/dL (9-20); Calcium 8.6 mg/dL (8.4-10.2); Carbon Dioxide 28 mmol/L (22-32); Chloride 100 mmol/L (98-107); Estimated Glomerular Filt Rate 46 mL/min (>60); Globulin 2.6 g/dL (1.7-4.1); Glucose 159 mg/dL (80-110); HEMOLYSIS < 15 (0-50); Potassium 4.2 mmol/L (3.4-5.1); Sodium 136 mmol/L (137-145); Total Protein 6.3 g/dL (6.3-8.2)
[2022-08-20 10:53] LABS: Thyroid Stimulating Hormone 3.26 uIU/mL (0.47-4.68)
== END ==
PROVIDERS: Family Provider Student in an Organized Health Care Education/Training Program; PCP Student in an Organized Health Care Education/Training Program; Referring Provider Internal Medicine Cardiovascular Disease; Visit Provider Internal Medicine Cardiovascular Disease
DX: Z79.899 Other long term (current) drug therapy (principal); I50.22 Chronic systolic (congestive) heart failure
CPT/HCPCS: 36415; 80053; 84443

== ENCOUNTER → 2022-11-11 11:44 | Outpatient (CLI) | payer OTHER, SELFPAY ==
[2022-04-03 15:41] VITALS: BMI 38.4
--- NOTE | 2022-11-18 09:00 | PM.PFT.1 ---
Pulmonary Function Test Referral & Results Date Patient Seen: 11/11/22 Results: The spirometry demonstrates an FVC of 3.82 L which is 80% of predicted. The FEV1 was measured at 2.95 L which is 85% of predicted. The FEV1/FVC ratio was 77 which is 105% of predicted. Following the administration of bronchodilator there was an 8% improvement in FEV1 and a 35% improvement in FEF 25-75%. Lung volumes show an SVC of 4.14 L which is 85% of predicted. The diffusing capacity was measured at 20.60 which is 58% of predicted. No hemoglobin value was provided, so no correction for potential anemia could be made, if appropriate. The maximum voluntary ventilation was reduced Interpretation: This study demonstrates possibly very mild obstructive lung disease based on minimal reduction FEV1 and improvement after bronchodilator in small airway flow. Lung volumes may demonstrate very minimal restrictive lung disease based on very minimal reduction SVC However spirometry could also be interpreted as normal There is a moderate reduction diffusing capacity suggesting the presence of disease at the capillary alveolar level Compared to PFTs performed in July 2022, current study demonstrates a further reduction diffusing capacity from previous abnormal number Clinical correlation suggested
== END ==
PROVIDERS: Family Provider Student in an Organized Health Care Education/Training Program; PCP Student in an Organized Health Care Education/Training Program; Referring Provider Nurse Practitioner Family; Visit Provider Nurse Practitioner Family
DX: Z79.899 Other long term (current) drug therapy (principal); Z87.891 Personal history of nicotine dependence; J98.8 Other specified respiratory disorders
CPT/HCPCS: 94060; 94726; 94729

== ENCOUNTER → 2022-11-25 07:49 | Outpatient (CLI) | payer OTHER, SELFPAY ==
[2022-04-03 15:41] VITALS: BMI 38.4
--- NOTE | 2022-11-25 | DI.ECHO.S_ITS ---
[facility] +---------+ : : [address] [place] : : : : [id number] : : : : Phone: [phone]+ Echocardiogram Report + + :Name: CHAVO ACUÑA Study Date: 11/25/2022 Height: 72 in : :[facility] ReadingLocation: Weight: 255 lb: : Gender: Male BSA: 2.4 m2 : :: 1950 Age: 72 yrs BP: 97/59 mmHg: :Reason For Study: SYSTOLIC HEART FAILURE : :Ordering Physician: RUFINO, : :LENIN Performed By: Jen Jeffries : :Referring: LENIN JOY : + + Interpretation Summary The left ventricle is normal in size. The ejection fraction is estimated to be 45-50%. Previously 15A?5%. Left ventricular systolic function has significantly improved compared to the previous exam. The right ventricle is mildly dilated. Right ventricular size has decreased since the prior echo exam. The right ventricular systolic function is normal. Right ventricular systolic function has increased since previous exam.There is a pacemaker lead in the right ventricle. There is moderate aortic regurgitation. Compared to the prior echo study, there has been an increase in the severity of aortic regurgitation. Procedure: A two-dimensional transthoracic echocardiogram with color flow and Doppler was performed. The study quality was technically difficult. Comparison is made with the echocardiogram of 04/03/2022. A contrast injection of Definity was performed to improve assessment of LV function. The heart rate ranged between 60-65 bpm during the study. Predominantly sinus rhythm. Left Ventricle: The left ventricle is normal in size. Proximal septal thickening is noted. There is no thrombus. The ejection fraction is estimated to be 45-50%. Left ventricular systolic function has significantly improved compared to the previous exam. There is septal wall hypokinesis. Diastolic parameters suggest a relaxation abnormality of the left ventricle, consistent with probable normal filling pressures. Right Ventricle: The right ventricle is mildly dilated. Right ventricular size has decreased since the prior echo exam. There is a pacemaker lead in the right ventricle. The right ventricular systolic function is normal. Right ventricular systolic function has increased since previous exam. Atria: The left atrium is mildly dilated. The left atrium has mildly decreased in size since the prior echo exam. Right atrial size is normal. There is a catheter/pacemaker lead seen in the right atrium. There is no Doppler evidence for an interatrial shunt. Mitral Valve: There is mild mitral annular calcification. The mitral valve leaflets appear mildly thickened, but open well. There is mild mitral regurgitation. Aortic Valve: The aortic valve is trileaflet. The aortic valve is mildly calcified. There is mildly reduced leaflet mobility. There is no hemodynamically significant valvular aortic stenosis. There is moderate aortic regurgitation. Compared to the prior echo study, there has been an increase in the severity of aortic regurgitation. Tricuspid Valve: The tricuspid valve is normal. There is mild tricuspid regurgitation. Right ventricular systolic pressure is estimated to be 24 mmHg plus the clinically estimated CVP which cannot be estimated on this exam. Pulmonic Valve: The pulmonic valve leaflets are thin and pliable; valve motion is normal. There is mild pulmonic regurgitation. Great Vessels: The aortic root is borderline dilated. The dimensions of the ascending aorta are normal. The inferior vena cava was not well visualized. Pericardium/ Pleura There is no pericardial effusion. There is no pleural effusion. MMode/2D Measurements & Calculations LVIDd: 5.6 cm LVOT diam: 2.2 cm LVIDs: 4.6 cm Ao root diam: 4.0 cm FS: 19.1 % asc Aorta Diam: 3.4 cm EPSS: 1.6 cm Ao Arch Diam (Prox Trans): 3.0 cm IVSd: 1.0 cm LVPWd: 1.1 cm LV hartley. diameter/BSA (cm/m^2): 2.4 LV sys. diameter/BSA (cm/m^2): 1.9 LA A2 area: 19.8 cm2 RA long axis: 5.5 cm LA A4 area: 21.7 cm2 RA area: 17.2 cm2 LA length (vol): 6.2 cm RA vol: 45.6 ml LA vol: 58.3 ml RA : 19.3 ml/m2 LA vol index: 24.7 ml/m2 RVD1 (basal): 4.3 cm RVD2 (mid): 3.1 cm TAPSE: 2.0 cm Doppler Measurements & Calculations Ao V2 max: 153.9 cm/sec LVOT Max Connor: 81.5 cm/sec Ao V2 mean: 112.1 cm/sec LV V1 max P.7 mmHg Ao max P.5 mmHg LV V1 VTI: 18.9 cm Ao mean P.5 mmHg CECILLE(I,D): 2.2 cm2 Ao V2 VTI: 33.3 cm CECILLE(V,D): 2.1 cm2 sev ratio: 0.57 CECILLE indexed to BSA (cm^2/m^2): 0.95 AI P1/2t: 661.8 msec AI dec slope: 159.0 cm/sec2 MV E max connor: 49.2 cm/sec TR max connor: 243.0 cm/sec MV A max connor: 85.9 cm/sec TR max P.6 mmHg MV E/A: 0.57 PA V2 max: 73.3 cm/sec Med Peak E' Connor: 4.2 cm/sec PA V2 mean: 47.2 cm/sec E/E' med: 11.7 PA mean P.96 mmHg Lat Peak E' Connor: 6.3 cm/sec PA pr(Accel): 41.3 mmHg E/E' lat: 7.8 E/e' average: 9.8 MV dec time: 0.25 sec SV(LVOT): 74.7 ml Reading Physician:10:13 AM
== END ==
PROVIDERS: Family Provider Student in an Organized Health Care Education/Training Program; PCP Pediatrics; Referring Provider Internal Medicine Cardiovascular Disease; Visit Provider Internal Medicine Cardiovascular Disease
DX: I50.22 Chronic systolic (congestive) heart failure (principal); I08.3 Combined rheumatic disorders of mitral, aortic and tricuspid valves
CPT/HCPCS: C8929; Q9957

== ENCOUNTER → 2022-12-28 13:46 | Outpatient (CLI) | payer OTHER, SELFPAY ==
[2022-04-03 15:41] VITALS: BMI 38.4
== END ==
PROVIDERS: Family Provider Student in an Organized Health Care Education/Training Program; PCP Pediatrics; Referring Provider Dermatology; Visit Provider Surgery
DX: L97.512 Non-pressure chronic ulcer of other part of right foot with fat layer exposed (principal); E11.621 Type 2 diabetes mellitus with foot ulcer; I73.9 Peripheral vascular disease, unspecified
CPT/HCPCS: 11042; 87070; 87075; 87205; 99213; 99214

== ENCOUNTER → 2022-12-29 08:39 | Outpatient (CLI) | payer OTHER, SELFPAY ==
[2022-04-03 15:41] VITALS: BMI 38.4
[2022-12-29 10:28] LABS: Add Manual Diff / Slide Review NO; Basophils Absolute Auto 100 /uL (0-100); Basophils Percent Auto 0.8 % (0-2); Eosinophils Absolute Auto 200 /uL (0-450); Eosinophils Percent Auto 2.5 % (2-4); Hematocrit 45.5 % (41-53); Hemoglobin 15.3 g/dL (13.5-17.5); Lymphocytes Absolute Auto 2200 /uL (1100-4500); Lymphocytes Percent Auto 34.4 % (25-40); Mean Corpuscular HGB Conc 33.6 % (30-36); Mean Corpuscular Hemoglobin 29.8 PG (26-34); Mean Corpuscular Volume 88.8 fL (80-100); Monocytes Absolute Auto 400 /uL (0-900); Neutrophils Absolute Auto 3500 /uL (1500-7000); Neutrophils Percent Auto 55.3 % (50-75); Platelet Count 120 X10^3/uL (150-400); Red Blood Cell Count 5.12 X10^6/uL (4.5-5.9); Red Cell Distribution Width 14.7 % (11.6-14.8); White Blood Cell Count 6.3 X10^3/uL (4.5-11.0)
[2022-12-30 04:24] LABS: x Labcorp Estim. Avg Glu (eAG) 206 mg/dL (.); x Labcorp Hemoglobin A1c 8.8 % (4.8-5.6)
== END ==
PROVIDERS: Family Provider Student in an Organized Health Care Education/Training Program; PCP Pediatrics; Referring Provider Surgery; Visit Provider Surgery
DX: S81.801A Unspecified open wound, right lower leg, initial encounter (principal)
CPT/HCPCS: 36415; 83036; 85025

== ENCOUNTER → 2023-01-04 08:36 | Outpatient (CLI) | payer OTHER, SELFPAY ==
[2022-04-03 15:41] VITALS: BMI 38.4
== END ==
PROVIDERS: Family Provider Student in an Organized Health Care Education/Training Program; PCP Pediatrics; Referring Provider Physician Assistant; Visit Provider Surgery
DX: E11.621 Type 2 diabetes mellitus with foot ulcer (principal); L97.512 Non-pressure chronic ulcer of other part of right foot with fat layer exposed; E11.42 Type 2 diabetes mellitus with diabetic polyneuropathy; E11.51 Type 2 diabetes mellitus with diabetic peripheral angiopathy without gangrene; R60.0 Localized edema
CPT/HCPCS: 11042; 99213

== ENCOUNTER → 2023-01-11 09:27 | Outpatient (CLI) | payer OTHER, SELFPAY ==
[2022-04-03 15:41] VITALS: BMI 38.4
== END ==
PROVIDERS: Family Provider Student in an Organized Health Care Education/Training Program; PCP Pediatrics; Referring Provider Physician Assistant; Visit Provider Surgery
DX: E11.621 Type 2 diabetes mellitus with foot ulcer (principal); L97.512 Non-pressure chronic ulcer of other part of right foot with fat layer exposed; E11.51 Type 2 diabetes mellitus with diabetic peripheral angiopathy without gangrene; E11.40 Type 2 diabetes mellitus with diabetic neuropathy, unspecified; R60.0 Localized edema; E46 Unspecified protein-calorie malnutrition
CPT/HCPCS: 11042

== ENCOUNTER → 2023-01-19 09:28 | Outpatient (CLI) | payer OTHER, SELFPAY ==
[2022-04-03 15:41] VITALS: BMI 38.4
== END ==
PROVIDERS: Family Provider Student in an Organized Health Care Education/Training Program; PCP Pediatrics; Referring Provider Physician Assistant; Visit Provider Surgery
DX: E11.621 Type 2 diabetes mellitus with foot ulcer (principal); L97.512 Non-pressure chronic ulcer of other part of right foot with fat layer exposed; E11.42 Type 2 diabetes mellitus with diabetic polyneuropathy; E11.51 Type 2 diabetes mellitus with diabetic peripheral angiopathy without gangrene; R60.0 Localized edema; E46 Unspecified protein-calorie malnutrition
CPT/HCPCS: 11042

== ENCOUNTER → 2023-01-26 08:57 | Outpatient (CLI) | payer OTHER, SELFPAY ==
[2022-04-03 15:41] VITALS: BMI 38.4
== END ==
PROVIDERS: Family Provider Student in an Organized Health Care Education/Training Program; PCP Pediatrics; Referring Provider Physician Assistant; Visit Provider Surgery
DX: I70.235 Atherosclerosis of native arteries of right leg with ulceration of other part of foot (principal); I87.2 Venous insufficiency (chronic) (peripheral); L97.512 Non-pressure chronic ulcer of other part of right foot with fat layer exposed; E11.40 Type 2 diabetes mellitus with diabetic neuropathy, unspecified; E11.51 Type 2 diabetes mellitus with diabetic peripheral angiopathy without gangrene; E11.622 Type 2 diabetes mellitus with other skin ulcer; R60.0 Localized edema; L53.9 Erythematous condition, unspecified
CPT/HCPCS: 11042; 97607; 99213

== ENCOUNTER → 2023-01-28 13:19 | Outpatient (CLI) | payer OTHER, SELFPAY ==
[2022-04-03 15:41] VITALS: BMI 38.4
== END ==
PROVIDERS: Family Provider Student in an Organized Health Care Education/Training Program; PCP Pediatrics; Referring Provider Physician Assistant; Visit Provider Surgery
DX: L97.512 Non-pressure chronic ulcer of other part of right foot with fat layer exposed (principal); I73.9 Peripheral vascular disease, unspecified; R60.0 Localized edema
CPT/HCPCS: 97607

== ENCOUNTER → 2023-02-01 10:12 | Outpatient (CLI) | payer OTHER, SELFPAY ==
[2023-01-29 16:30] VITALS: BMI 38.4
== END ==
PROVIDERS: Family Provider Student in an Organized Health Care Education/Training Program; PCP Pediatrics; Referring Provider Physician Assistant; Visit Provider Surgery
DX: L97.512 Non-pressure chronic ulcer of other part of right foot with fat layer exposed (principal); I73.9 Peripheral vascular disease, unspecified; E11.621 Type 2 diabetes mellitus with foot ulcer; R60.0 Localized edema; I25.10 Atherosclerotic heart disease of native coronary artery without angina pectoris
CPT/HCPCS: 11042; 97607

== ENCOUNTER → 2023-02-05 09:56 | Outpatient (CLI) | payer OTHER, SELFPAY ==
[2023-01-29 16:30] VITALS: BMI 38.4
== END ==
PROVIDERS: Family Provider Student in an Organized Health Care Education/Training Program; PCP Pediatrics; Referring Provider Physician Assistant; Visit Provider Physician Assistant
DX: I70.235 Atherosclerosis of native arteries of right leg with ulceration of other part of foot (principal); L97.512 Non-pressure chronic ulcer of other part of right foot with fat layer exposed; R60.0 Localized edema
CPT/HCPCS: 97607

== ENCOUNTER → 2023-02-08 09:17 | Outpatient (CLI) | payer OTHER, SELFPAY ==
[2023-01-29 16:30] VITALS: BMI 38.4
== END ==
PROVIDERS: Family Provider Student in an Organized Health Care Education/Training Program; PCP Pediatrics; Referring Provider Physician Assistant; Visit Provider Surgery
DX: I70.235 Atherosclerosis of native arteries of right leg with ulceration of other part of foot (principal); L97.512 Non-pressure chronic ulcer of other part of right foot with fat layer exposed; E11.51 Type 2 diabetes mellitus with diabetic peripheral angiopathy without gangrene; E11.40 Type 2 diabetes mellitus with diabetic neuropathy, unspecified; I87.2 Venous insufficiency (chronic) (peripheral); E11.622 Type 2 diabetes mellitus with other skin ulcer
CPT/HCPCS: 11042; 97607

== ENCOUNTER → 2023-02-11 08:54 | Outpatient (CLI) | payer OTHER, SELFPAY ==
[2023-01-29 16:30] VITALS: BMI 38.4
== END ==
PROVIDERS: Family Provider Student in an Organized Health Care Education/Training Program; PCP Pediatrics; Referring Provider Physician Assistant; Visit Provider Surgery
DX: I70.235 Atherosclerosis of native arteries of right leg with ulceration of other part of foot (principal); L97.512 Non-pressure chronic ulcer of other part of right foot with fat layer exposed; R60.0 Localized edema
CPT/HCPCS: 97607

== ENCOUNTER → 2023-02-15 09:51 | Outpatient (CLI) | payer OTHER, SELFPAY ==
[2023-01-29 16:30] VITALS: BMI 38.4
== END ==
PROVIDERS: Family Provider Student in an Organized Health Care Education/Training Program; PCP Pediatrics; Referring Provider Physician Assistant; Visit Provider Surgery
DX: I70.235 Atherosclerosis of native arteries of right leg with ulceration of other part of foot (principal); L97.512 Non-pressure chronic ulcer of other part of right foot with fat layer exposed; E11.51 Type 2 diabetes mellitus with diabetic peripheral angiopathy without gangrene; E11.40 Type 2 diabetes mellitus with diabetic neuropathy, unspecified; M79.671 Pain in right foot; E11.622 Type 2 diabetes mellitus with other skin ulcer
CPT/HCPCS: 11042; 97607

== ENCOUNTER → 2023-02-18 08:51 | Outpatient (CLI) | payer OTHER, SELFPAY ==
[2023-01-29 16:30] VITALS: BMI 38.4
== END ==
PROVIDERS: PCP Family Medicine; Referring Provider Physician Assistant; Visit Provider Surgery
DX: I70.235 Atherosclerosis of native arteries of right leg with ulceration of other part of foot (principal); L97.512 Non-pressure chronic ulcer of other part of right foot with fat layer exposed
CPT/HCPCS: 97607

== ENCOUNTER → 2023-02-22 09:28 | Outpatient (CLI) | payer OTHER, SELFPAY ==
[2023-01-29 16:30] VITALS: BMI 38.4
== END ==
PROVIDERS: PCP Family Medicine; Referring Provider Physician Assistant; Visit Provider Surgery
DX: I70.235 Atherosclerosis of native arteries of right leg with ulceration of other part of foot (principal); L97.512 Non-pressure chronic ulcer of other part of right foot with fat layer exposed; E11.622 Type 2 diabetes mellitus with other skin ulcer; E11.51 Type 2 diabetes mellitus with diabetic peripheral angiopathy without gangrene
CPT/HCPCS: 11042; 97607; 99213

== ENCOUNTER → 2023-02-25 09:08 | Outpatient (CLI) | payer OTHER, SELFPAY ==
[2023-01-29 16:30] VITALS: BMI 38.4
== END ==
PROVIDERS: PCP Family Medicine; Referring Provider Physician Assistant; Visit Provider Surgery
DX: I70.235 Atherosclerosis of native arteries of right leg with ulceration of other part of foot (principal); L97.512 Non-pressure chronic ulcer of other part of right foot with fat layer exposed; R60.0 Localized edema
CPT/HCPCS: 97607

== ENCOUNTER → 2023-02-26 08:55 | Outpatient (CLI) | payer OTHER, SELFPAY ==
[2023-01-29 16:30] VITALS: BMI 38.4
[2023-02-26 10:04] LABS: Add Manual Diff / Slide Review NO; Basophils Absolute Auto 100 /uL (0-100); Basophils Percent Auto 0.8 % (0-2); Eosinophils Absolute Auto 300 /uL (0-450); Eosinophils Percent Auto 3.9 % (2-4); Hematocrit 43.1 % (41-53); Hemoglobin 14.6 g/dL (13.5-17.5); Lymphocytes Absolute Auto 2400 /uL (1100-4500); Lymphocytes Percent Auto 31.3 % (25-40); Mean Corpuscular HGB Conc 33.8 % (30-36); Mean Corpuscular Hemoglobin 30.6 PG (26-34); Mean Corpuscular Volume 90.3 fL (80-100); Monocytes Absolute Auto 500 /uL (0-900); Neutrophils Absolute Auto 4400 /uL (1500-7000); Platelet Count 134 X10^3/uL (150-400); Red Blood Cell Count 4.78 X10^6/uL (4.5-5.9); Red Cell Distribution Width 15.6 % (11.6-14.8); White Blood Cell Count 7.7 X10^3/uL (4.5-11.0)
[2023-02-26 10:52] LABS: BUN Creatinine Ratio 28.8 (6-22); Blood Urea Nitrogen 44 mg/dL (9-20); Calcium 9.1 mg/dL (8.4-10.2); Carbon Dioxide 26 mmol/L (22-32); Chloride 101 mmol/L (98-107); Estimated Glomerular Filt Rate 48 mL/min (>60); Glucose 161 mg/dL (80-110); HEMOLYSIS < 15 (0-50); Potassium 4.6 mmol/L (3.4-5.1); Sodium 135 mmol/L (137-145)
== END ==
PROVIDERS: PCP Family Medicine; Referring Provider Nurse Practitioner Adult Health; Visit Provider Nurse Practitioner Adult Health
DX: I73.9 Peripheral vascular disease, unspecified (principal)
CPT/HCPCS: 36415; 80048; 85025

== ENCOUNTER → 2023-03-01 09:10 | Outpatient (CLI) | payer OTHER, SELFPAY ==
[2023-01-29 16:30] VITALS: BMI 38.4
== END ==
PROVIDERS: PCP Family Medicine; Referring Provider Physician Assistant; Visit Provider Surgery
DX: E11.621 Type 2 diabetes mellitus with foot ulcer (principal); I70.235 Atherosclerosis of native arteries of right leg with ulceration of other part of foot; L97.512 Non-pressure chronic ulcer of other part of right foot with fat layer exposed; E11.42 Type 2 diabetes mellitus with diabetic polyneuropathy; I87.2 Venous insufficiency (chronic) (peripheral); R60.0 Localized edema
CPT/HCPCS: 11042; 97597

== ENCOUNTER → 2023-03-08 09:04 | Outpatient (CLI) | payer OTHER, SELFPAY ==
[2023-01-29 16:30] VITALS: BMI 38.4
== END ==
PROVIDERS: PCP Family Medicine; Referring Provider Physician Assistant; Visit Provider Surgery
DX: I70.235 Atherosclerosis of native arteries of right leg with ulceration of other part of foot (principal); L97.512 Non-pressure chronic ulcer of other part of right foot with fat layer exposed
CPT/HCPCS: 11042; 97597

== ENCOUNTER 2023-03-12 17:05 | Emergency (ER) | payer OTHER, SELFPAY ==
[2023-01-29 16:30] VITALS: BMI 38.4
[2023-03-12] VITALS (19 sets, daily range): BP systolic 82–129; BP diastolic 50–75; PULSE 60–63; RESP 11–27; TEMP 36.7; O2SAT 95–100; BMI 33.7
--- NOTE | 2023-03-12 17:19 | DI.RAD.S_ITS ---
PROCEDURE: XR CHEST 1V INDICATIONS: hypotension TECHNIQUE: One view of the chest was acquired. COMPARISON: [facility], SAM, XR CHEST 1V, 04/03/2022, 1:54. [facility], CR, XR CHEST 1V, 02/28/2018, 2:01. FINDINGS: Surgical changes and devices: Sternotomy and left chest wall pacemaker and ICD generator with intravenous leads. Lungs and pleura: Lungs are clear. No pleural effusions or pneumothorax. Mediastinum: Mediastinal contours appear normal. Heart size is normal. Bones and chest wall: No suspicious bony lesions. Overlying soft tissues appear unremarkable. IMPRESSION: Portable chest within normal limits for age. Dictated by: Del Bee M.D. on 03/12/2023 at 18:12 Approved by: Del Bee M.D. on 03/12/2023 at 18:14
--- NOTE | 2023-03-12 17:21 | ED_ITS ---
HPI - General Adult General Chief complaint: Chest Pain Stated complaint: bp issues, sent by Dr Vicente Time Seen by Provider: 03/12/23 17:07 Mode of arrival: Family Vehicle History of Present Illness HPI narrative: 72-year-old male former smoker with extensive cardiac history including 3 way bypass in 2002 with grafts of LAD, posterior lateral branch of the circumflex,, hypertension, hyperlipidemia, psoriasis, GERD, chronic renal disease, EF of 55- 60%, mild to moderate aortic regurg presents at the request of his cardiology office. Patient routinely has a heart rate in the 60s to 70s but noted an elevated heart rate in the 1 teens to 120s today with associated chest pain. He took a nitro and is sent here. Related Data Home Medications Medication Instructions Recorded Confirmed docusate sodium 100 mg capsule 100 mg PO DAILY 09/29/17 02/15/23 terazosin 10 mg capsule 10 mg PO QHS 09/29/17 02/15/23 apixaban 5 mg tablet (Eliquis) 5 mg PO BID 03/15/18 02/15/23 niacin 500 mg tablet 500 mg PO BID 03/15/18 02/15/23 nitroglycerin 0.4 mg sublingual 0.4 mg sublingual Q5-15M PRN Chest 03/15/18 02/15/23 tablet Pain rosuvastatin 40 mg tablet 40 mg PO DAILY 03/15/18 02/15/23 ezetimibe 10 mg tablet (Zetia) 10 mg PO DAILY 02/23/20 02/15/23 triamcinolone acetonide 0.1 % 1 applic topical BID 05/03/20 02/15/23 topical cream aspirin 81 mg tablet,delayed 81 mg PO DAILY 04/03/22 02/15/23 release spironolactone 25 mg tablet 12.5 mg PO DAILY 05/04/22 02/15/23 torsemide 20 mg tablet 20 mg PO DAILY 08/11/22 02/15/23 amiodarone 200 mg tablet 100 mg PO DAILY 02/15/23 02/15/23 empagliflozin 10 mg tablet 10 mg PO DAILY 02/15/23 02/15/23 (Jardiance) fluorouracil 5 % topical cream 1 applic topical BID 02/15/23 02/15/23 (Efudex) metoprolol succinate 50 mg 75 mg PO BID 02/15/23 02/15/23 tablet,extended release 24 hr mupirocin 2 % topical ointment 1 applic topical BID 02/15/23 02/15/23 risankizumab-rzaa 150 mg/mL 150 mg SUBCUT Q12W 02/15/23 02/15/23 subcutaneous pen injector (Angelica) Previous Rx's Medication Instructions Recorded sacubitril 24 mg-valsartan 26 mg 1 tab PO BID #60 tabs 04/04/22 tablet (Entresto) sucralfate 1 gram tablet 1 g PO BID #180 tabs 04/20/22 empagliflozin 10 mg tablet 10 mg PO DAILY diabetes #90 tabs 02/15/23 (Jardiance) omeprazole 20 mg tablet,delayed 20 mg PO DAILY #90 tabs 03/08/23 release Allergies Allergy/AdvReac Type Severity Reaction Status Date / Time No Known Drug Allergies Allergy Verified 03/12/23 17:21 Patient History Medical History (Updated 02/15/23 @ 13:05 by Homero Orona DO) Peripheral vascular disease Bladder cancer Type 2 diabetes mellitus with chronic kidney disease, without long-term current use of insulin CHF (congestive heart failure) CKD (chronic kidney disease) stage 3, GFR 30-59 ml/min Cardiac arrest with ventricular fibrillation Disc degeneration (~2003) Nephrolithiasis (Unknown) Psoriasis (Unknown) History of diverticulitis (Unknown) Hyperlipidemia (Unknown) Carotid artery disease (Unknown) Hypertension (Unknown) Atrial fibrillation Pure hypercholesterolemia (12/02/15) Essential hypertension (12/02/15) Coronary artery disease involving [place] coronary artery of [place] heart without angina pectoris (12/02/15) Surgical History H/O transurethral destruction of bladder lesion AICD (automatic cardioverter/defibrillator) present (~06/2020) Status post tonsillectomy and adenoidectomy Status post knee surgery Status post coronary artery bypass graft Social History marital status: household members: spouse occupational status: employed Smoking Status: Former smoker Tobacco: How many years used: 50 alcohol intake: current (1 drink per month if going out ) substance use type: marijuana (vape PRN ) Smoking Status: Former smoker alcohol intake frequency: 0-2 drinks per day Substance Use Type: does not use Exam Initial Vital Signs Initial Vital Signs: Vital Signs Temperature 98.0 F 03/12/23 17:14 Pulse Rate 63 03/12/23 17:14 Respiratory Rate 20 03/12/23 17:14 Blood Pressure 82/50 L 03/12/23 17:14 Pulse Oximetry 100 03/12/23 17:14 Oxygen Delivery Method Room Air 03/12/23 17:14 Course Orders Ordered: ED Orders 03/12/23 17:18 Complete Blood Count AUTO DIFF Stat Comprehensive Metabolic Panel Stat 03/12/23 17:19 Chest [XR chest 1V] Stat Covid-19 + FLU A/B + RSV - PCR Stat Lactate (Lactic Acid) Stat Magnesium Stat NT-proBNP (BNP-Adult 18+) Stat Troponin & CK Cardiac Panel Stat EKG-12 Lead Stat Sodium Chloride (Normal Saline 0.9%) 1,000 mls @ 1,000 mls/hr IV BOLUS ONE Stop: 03/12/23 18:17 Vital Signs Vital signs: Vital Signs - 8 hr 03/12/23 17:14 Temperature 98.0 F Pulse Rate 63 Respiratory Rate 20 Blood Pressure 82/50 L Pulse Oximetry 100 Oxygen Delivery Method Room Air Discharge Plan Departure Prescriptions: No Action rosuvastatin 40 mg tablet 40 mg PO DAILY niacin 500 mg tablet 500 mg PO BID nitroglycerin 0.4 mg tablet, sublingual 0.4 mg SL Q5-15M PRN (Reason: Chest Pain) apixaban [Eliquis] 5 mg tablet 5 mg PO BID ezetimibe [Zetia] 10 mg tablet 10 mg PO DAILY sucralfate 1 gram tablet 1 g PO BID Qty: 180 1RF spironolactone 25 mg tablet 12.5 mg PO DAILY torsemide 20 mg tablet 20 mg PO DAILY Rx Instructions: 2OMG ONE DAY THEN 10MG THE NEXT ALTERNATE LIKE THIS omeprazole 20 mg tablet,delayed release (DR/EC) 20 mg PO DAILY Qty: 90 2RF triamcinolone acetonide 0.1 % cream 1 applic topical BID Jardiance 10 mg tablet 10 mg PO DAILY Qty: 90 3RF fluorouracil [Efudex] 5 % cream 1 applic topical BID Jardiance 10 mg tablet 10 mg PO DAILY mupirocin 2 % ointment 1 applic topical BID Skyrizi 150 mg/mL pen injector 150 mg SUBCUT Q12W amiodarone 200 mg tablet 100 mg PO DAILY Patient Comments: reducing to 100mg as of 01/28/23, may increase back to 200mg next appt. 02/15/23 docusate sodium 100 mg Capsule 100 mg PO DAILY terazosin 10 MG capsule 10 mg PO QHS aspirin 81 mg Tablet,Delayed Release (Dr/Ec) 81 mg PO DAILY Entresto 24-26 mg tablet 1 tab PO BID Qty: 60 0RF metoprolol succinate 50 mg tablet extended release 24 hr 75 mg PO BID Referrals: Homero Orona DO [Primary Care Provider] -
[2023-03-12] MEDS: SODIUM CHLORIDE 0.9% 1,000 ML 1000 ML IV (17:26)
[2023-03-12 17:28] LABS: Add Manual Diff / Slide Review NO; Basophils Absolute Auto 100 /uL (0-100); Basophils Percent Auto 0.8 % (0-2); Eosinophils Absolute Auto 200 /uL (0-450); Hematocrit 46.4 % (41-53); Hemoglobin 15.6 g/dL (13.5-17.5); Lymphocytes Absolute Auto 2500 /uL (1100-4500); Mean Corpuscular HGB Conc 33.6 % (30-36); Mean Corpuscular Hemoglobin 30.4 PG (26-34); Mean Corpuscular Volume 90.3 fL (80-100); Monocytes Absolute Auto 700 /uL (0-900); Monocytes Percent Auto 7.6 % (3-14); Neutrophils Absolute Auto 5200 /uL (1500-7000); Neutrophils Percent Auto 60.6 % (50-75); Platelet Count 147 X10^3/uL (150-400); Red Blood Cell Count 5.14 X10^6/uL (4.5-5.9); Red Cell Distribution Width 15.2 % (11.6-14.8); White Blood Cell Count 8.5 X10^3/uL (4.5-11.0)
[2023-03-12 17:41] LABS: Lactate (Lactic Acid) 1.5 mmol/L (0.7-2.1)
[2023-03-12 17:42] LABS: Alanine Aminotransferase 33 IU/L (<50); Albumin 2.6 g/dL (3.5-5.0); Albumin Globulin Ratio 0.6 (1.0-2.8); Alkaline Phosphatase 41 U/L (38-126); Aspartate Aminotransferase 38 IU/L (17-59); BUN Creatinine Ratio 32.8 (6-22); Blood Urea Nitrogen 57 mg/dL (9-20); Calcium 9.2 mg/dL (8.4-10.2); Carbon Dioxide 24 mmol/L (22-32); Chloride 100 mmol/L (98-107); Estimated Glomerular Filt Rate 41 mL/min (>60); Globulin 4.7 g/dL (1.7-4.1); Glucose 153 mg/dL (80-110); Potassium 4.5 mmol/L (3.4-5.1); Sodium 133 mmol/L (137-145); Total Protein 7.3 g/dL (6.3-8.2)
[2023-03-12 17:43] LABS: Creatine Kinase 69 U/L (55-170); Magnesium 2.5 mg/dL (1.6-2.3)
[2023-03-12 17:46] LABS: HEMOLYSIS 62 (0-50)
[2023-03-12 17:54] LABS: NT-proBNP (BNP-Adult 18+) 1230 pg/mL (<125); Troponin I 0.064 ng/mL (0.01-0.034)
[2023-03-12 18:11] LABS: Influenza A - CEPHEID Flu A NEGATIVE (NEGATIVE); Influenza B - CEPHEID Flu B NEGATIVE (NEGATIVE); Respiratory Syncytial Virus Negative (Negative)
--- NOTE | 2023-03-12 18:24 | ED_ITS ---
HPI - Chest Pain <Austin Choudhury, DO - Last Filed: 03/13/23 18:48> General Chief Complaint: Chest Pain Stated Complaint: bp issues, sent by Dr Vicente Time Seen by Provider: 03/12/23 17:07 Source: patient Mode of arrival: Family Vehicle Limitations: no limitations History of Present Illness HPI narrative: Patient is a 72-year-old male. History of coronary artery disease. Has had a history of a coronary artery bypass graft years ago. He also has a history of atrial fibrillation. Has a defibrillator in place. He is on apixaban. His last dose of apixaban was this morning. He stated that he takes his blood pressure twice a day. He woke up this morning and took his blood pressure and the blood pressure cuff measured that his heart rate was 110-120. He was not having chest pain or palpitations at the time. He took his blood pressure again this afternoon which is normal for him and once again his heart rate was elevated. This afternoon he then developed chest pressure that radiated to his left arm. He states it was not associated with palpation or movement. His symptoms are now completely resolved. He is currently asymptomatic. He contacted his boom tender's office. They had him interrogate his pacemaker and send the information to them. Related Data Home Medications Medication Instructions Recorded Confirmed docusate sodium 100 mg capsule 100 mg PO DAILY 09/29/17 02/15/23 terazosin 10 mg capsule 10 mg PO QHS 09/29/17 02/15/23 apixaban 5 mg tablet (Eliquis) 5 mg PO BID 03/15/18 02/15/23 niacin 500 mg tablet 500 mg PO BID 03/15/18 02/15/23 nitroglycerin 0.4 mg sublingual 0.4 mg sublingual Q5-15M PRN Chest 03/15/18 02/15/23 tablet Pain rosuvastatin 40 mg tablet 40 mg PO DAILY 03/15/18 02/15/23 ezetimibe 10 mg tablet (Zetia) 10 mg PO DAILY 02/23/20 02/15/23 triamcinolone acetonide 0.1 % 1 applic topical BID 05/03/20 02/15/23 topical cream aspirin 81 mg tablet,delayed 81 mg PO DAILY 04/03/22 02/15/23 release spironolactone 25 mg tablet 12.5 mg PO DAILY 05/04/22 02/15/23 torsemide 20 mg tablet 20 mg PO DAILY 08/11/22 02/15/23 amiodarone 200 mg tablet 100 mg PO DAILY 02/15/23 02/15/23 empagliflozin 10 mg tablet 10 mg PO DAILY 02/15/23 02/15/23 (Jardiance) fluorouracil 5 % topical cream 1 applic topical BID 02/15/23 02/15/23 (Efudex) metoprolol succinate 50 mg 75 mg PO BID 02/15/23 02/15/23 tablet,extended release 24 hr mupirocin 2 % topical ointment 1 applic topical BID 02/15/23 02/15/23 risankizumab-rzaa 150 mg/mL 150 mg SUBCUT Q12W 02/15/23 02/15/23 subcutaneous pen injector (Angelica) Previous Rx's Medication Instructions Recorded sacubitril 24 mg-valsartan 26 mg 1 tab PO BID #60 tabs 04/04/22 tablet (Entresto) sucralfate 1 gram tablet 1 g PO BID #180 tabs 04/20/22 empagliflozin 10 mg tablet 10 mg PO DAILY diabetes #90 tabs 02/15/23 (Jardiance) omeprazole 20 mg tablet,delayed 20 mg PO DAILY #90 tabs 03/08/23 release Allergies Allergy/AdvReac Type Severity Reaction Status Date / Time No Known Drug Allergies Allergy Verified 03/12/23 17:21 Review of Systems <Austin Choudhury DO - Last Filed: 03/13/23 18:48> Constitutional Constitutional: Reports system reviewed and no additional complaints, except as documented Cardiovascular Cardiovascular: Reports system reviewed and no additional complaints, except as documented Respiratory Respiratory: Reports system reviewed and no additional complaints, except as documented Gastrointestinal Gastrointestinal: Reports system reviewed and no additional complaints, except as documented Musculoskeletal Musculoskeletal: Reports system reviewed and no additional complaints, except as documented Integumentary/Breasts Skin/Breast: Reports system reviewed and no additional complaints, except as documented Hematologic/Lymphatic On Anticoagulants: Yes Patient History <Austin Choudhury DO - Last Filed: 03/13/23 18:48> Medical History Peripheral vascular disease Bladder cancer Type 2 diabetes mellitus with chronic kidney disease, without long-term current use of insulin CHF (congestive heart failure) CKD (chronic kidney disease) stage 3, GFR 30-59 ml/min Cardiac arrest with ventricular fibrillation Disc degeneration (~2003) Nephrolithiasis (Unknown) Psoriasis (Unknown) History of diverticulitis (Unknown) Hyperlipidemia (Unknown) Carotid artery disease (Unknown) Hypertension (Unknown) Atrial fibrillation Pure hypercholesterolemia (12/02/15) Essential hypertension (12/02/15) Coronary artery disease involving yurok coronary artery of yurok heart without angina pectoris (12/02/15) Surgical History H/O transurethral destruction of bladder lesion AICD (automatic cardioverter/defibrillator) present (~06/2020) Status post tonsillectomy and adenoidectomy Status post knee surgery Status post coronary artery bypass graft Social History marital status: household members: spouse occupational status: employed Smoking Status: Former smoker (Quit 2019) Tobacco: How many years used: 50 alcohol intake: current (1 drink per month if going out ) substance use type: marijuana (vape PRN ) Smoking Status: Former smoker (Quit 2019) alcohol intake frequency: 0-2 drinks per day Substance Use Type: does not use Exam <Austin Choudhury DO - Last Filed: 03/13/23 18:48> Initial Vital Signs Initial Vital Signs: Vital Signs Temperature 98.0 F 03/12/23 17:14 Pulse Rate 63 03/12/23 17:14 Respiratory Rate 20 03/12/23 17:14 Blood Pressure 82/50 L 03/12/23 17:14 Pulse Oximetry 100 03/12/23 17:14 Oxygen Delivery Method Room Air 03/12/23 17:14 Const General: cooperative, comfortable and No ill appearing HENOK Head: normal to inspection Resp Effort & Inspection: normal respiratory effort Auscultation: clear to auscultation bilaterally Cardio Rate: regular rate Rhythm: regular rhythm GI Inspection: normal to inspection and non-distended Skin General: no rashes or lesions noted Neuro General: patient alert, patient awake, patient oriented x3 and moves all extremities Extrem General: capillary refill normal <Elvira Browne DO - Last Filed: 03/13/23 18:19> Initial Vital Signs Initial Vital Signs: Vital Signs Temperature 98.0 F 03/12/23 17:14 Pulse Rate 63 03/12/23 17:14 Respiratory Rate 20 03/12/23 17:14 Blood Pressure 82/50 L 03/12/23 17:14 Pulse Oximetry 100 03/12/23 17:14 Oxygen Delivery Method Room Air 03/12/23 17:14 Scores <Austin Choudhury DO - Last Filed: 03/13/23 18:48> HEART Score Heart Score history: Moderately Suspicious Heart Score EKG: Non-Specific repolarization disturbance Heart Score Age: > or = 65 years old Heart Score risk factors: > 3 risk factors or hx of atherosclerotic disease Heart Score troponin: 1-3 times normal limit Heart Score Total: 7 <Elvira Browne DO - Last Filed: 03/13/23 18:19> HEART Score Heart Score Total: 7 Course <Austin Choudhury DO - Last Filed: 03/13/23 18:48> Orders Ordered: ED Orders 03/13/23 11:55 PTT Partial Thromboplastin Renzo Q6H Trop I [Troponin I] Stat 03/13/23 13:43 EKG-12 Lead Stat 03/13/23 18:10 PTT Partial Thromboplastin Renzo Q6H Discontinued Medications Aspirin (Aspirin 81 Mg Chew Tab) 324 mg PO NOW ONE Stop: 03/12/23 20:55 Last Admin: 03/12/23 20:59 Dose: 324 mg Documented By: SEAN Heparin Sodium (Porcine) (Heparin 5,000 Unit/Ml Vial) 5,000 unit IV NOW ONE Stop: 03/12/23 23:56 Last Admin: 03/13/23 00:03 Dose: 5,000 unit Documented By: Sodium Chloride (Normal Saline 0.9%) 1,000 mls @ 1,000 mls/hr IV BOLUS ONE Stop: 03/12/23 18:17 Last Infusion: 03/12/23 18:08 Dose: Infused Documented By: Admin: 03/12/23 17:26 Dose: 1,000 mls/hr Documented By: AMV Heparin Sodium/Dextrose (Heparin Drip) 25,000 unit in 500 mls @ 20 mls/hr IV CONT MANGO; Protocol Last Admin: 03/13/23 00:03 Dose: 1,000 units/hr, 20 mls/hr Documented By: Co-signed By: HNG Sodium Chloride (Normal Saline 0.9%) 1,000 mls @ 500 mls/hr IV BOLUS ONE Stop: 03/13/23 04:00 Last Admin: 03/13/23 07:38 Dose: Not Given Documented By: MPO Morphine Sulfate (Morphine 4 Mg/Ml Inj) 4 mg IV NOW ONE Stop: 03/12/23 20:33 Vital Signs Vital signs: Vital Signs - 8 hr 03/13/23 11:00 03/13/23 11:30 03/13/23 12:00 Pulse Rate 60 60 60 Respiratory Rate 19 18 25 H Blood Pressure Pulse Oximetry 97 96 98 03/13/23 12:30 03/13/23 13:00 03/13/23 13:30 Pulse Rate 60 60 60 Respiratory Rate 10 L 11 L 23 Blood Pressure Pulse Oximetry 97 98 98 03/13/23 14:00 03/13/23 14:30 03/13/23 15:00 Pulse Rate 60 60 60 Respiratory Rate 32 H 20 17 Blood Pressure Pulse Oximetry 98 95 95 03/13/23 15:30 03/13/23 16:00 03/13/23 16:01 Pulse Rate 59 L 60 60 Respiratory Rate 21 17 18 Blood Pressure Pulse Oximetry 97 97 97 03/13/23 16:01 03/13/23 16:30 03/13/23 16:31 Pulse Rate 60 60 Respiratory Rate 27 H 18 Blood Pressure 99/56 L Pulse Oximetry 98 98 03/13/23 16:31 03/13/23 17:00 03/13/23 17:30 Pulse Rate 69 Respiratory Rate 15 Blood Pressure 100/56 L 91/56 L Pulse Oximetry 03/13/23 17:30 03/13/23 18:00 03/13/23 18:00 Pulse Rate 60 59 L Respiratory Rate 18 19 Blood Pressure 97/53 L Pulse Oximetry 97 97 03/13/23 18:15 Pulse Rate 60 Respiratory Rate 20 Blood Pressure 102/62 Pulse Oximetry 98 <Elvira Browne, - Last Filed: 03/13/23 18:19> Orders Ordered: ED Orders 03/13/23 11:55 PTT Partial Thromboplastin Renzo Q6H Trop I [Troponin I] Stat 03/13/23 13:43 EKG-12 Lead Stat 03/13/23 18:10 PTT Partial Thromboplastin Renzo Q6H Discontinued Medications Aspirin (Aspirin 81 Mg Chew Tab) 324 mg PO NOW ONE Stop: 03/12/23 20:55 Last Admin: 03/12/23 20:59 Dose: 324 mg Documented By: DKB Heparin Sodium (Porcine) (Heparin 5,000 Unit/Ml Vial) 5,000 unit IV NOW ONE Stop: 03/12/23 23:56 Last Admin: 03/13/23 00:03 Dose: 5,000 unit Documented By: Sodium Chloride (Normal Saline 0.9%) 1,000 mls @ 1,000 mls/hr IV BOLUS ONE Stop: 03/12/23 18:17 Last Infusion: 03/12/23 18:08 Dose: Infused Documented By: Admin: 03/12/23 17:26 Dose: 1,000 mls/hr Documented By: AMTrena Heparin Sodium/Dextrose (Heparin Drip) 25,000 unit in 500 mls @ 20 mls/hr IV CONT MANGO; Protocol Last Admin: 03/13/23 00:03 Dose: 1,000 units/hr, 20 mls/hr Documented By: Co-signed By: HNG Sodium Chloride (Normal Saline 0.9%) 1,000 mls @ 500 mls/hr IV BOLUS ONE Stop: 03/13/23 04:00 Last Admin: 03/13/23 07:38 Dose: Not Given Documented By: MPO Morphine Sulfate (Morphine 4 Mg/Ml Inj) 4 mg IV NOW ONE Stop: 03/12/23 20:33 Vital Signs Vital signs: Vital Signs - 8 hr 03/13/23 11:00 03/13/23 11:30 03/13/23 12:00 Pulse Rate 60 60 60 Respiratory Rate 19 18 25 H Blood Pressure Pulse Oximetry 97 96 98 03/13/23 12:30 03/13/23 13:00 03/13/23 13:30 Pulse Rate 60 60 60 Respiratory Rate 10 L 11 L 23 Blood Pressure Pulse Oximetry 97 98 98 03/13/23 14:00 03/13/23 14:30 03/13/23 15:00 Pulse Rate 60 60 60 Respiratory Rate 32 H 20 17 Blood Pressure Pulse Oximetry 98 95 95 03/13/23 15:30 03/13/23 16:00 03/13/23 16:01 Pulse Rate 59 L 60 60 Respiratory Rate 21 17 18 Blood Pressure Pulse Oximetry 97 97 97 03/13/23 16:01 03/13/23 16:30 03/13/23 16:31 Pulse Rate 60 60 Respiratory Rate 27 H 18 Blood Pressure 99/56 L Pulse Oximetry 98 98 03/13/23 16:31 03/13/23 17:00 03/13/23 17:30 Pulse Rate 69 Respiratory Rate 15 Blood Pressure 100/56 L 91/56 L Pulse Oximetry 03/13/23 17:30 03/13/23 18:00 03/13/23 18:00 Pulse Rate 60 59 L Respiratory Rate 18 19 Blood Pressure 97/53 L Pulse Oximetry 97 97 03/13/23 18:15 Pulse Rate 60 Respiratory Rate 20 Blood Pressure 102/62 Pulse Oximetry 98 MDM - Chest Pain <Austin Choudhury DO - Last Filed: 03/13/23 18:48> Medical Records Data Attestation: I reviewed the patient's medical records. Lab Data Attestation: I reviewed the patient's lab results. 03/13/23 06:05 03/12/23 17:21 Labs: Lab Results 03/12/23 03/12/23 03/12/23 Range/Units 17:21 17:30 20:18 WBC 8.5 (4.5-11.0) X10^3/uL RBC 5.14 (4.5-5.9) X10^6/uL Hgb 15.6 (13.5-17.5) g/dL Hct 46.4 (41-53) % MCV 90.3 (80-100) fL MCH 30.4 (26-34) PG MCHC 33.6 (30-36) % RDW 15.2 H (11.6-14.8) % Plt Count 147 L (150-400) X10^3/uL Neut % (Auto) 60.6 (50-75) % Lymph % (Auto) 29.0 (25-40) % [place] % (Auto) 7.6 (3-14) % Eos % (Auto) 2.0 (2-4) % Baso % (Auto) 0.8 (0-2) % Neut # (Auto) 5200 (4111-3901) /uL Lymph # (Auto) 2500 (1340-3775) /uL [place] # (Auto) 700 (0-900) /uL Eos # (Auto) 200 (0-450) /uL Baso # (Auto) 100 (0-100) /uL PT 14.1 H (10.1-12.7) SECONDS INR 1.2 (0.9-1.3) APTT 37 H (26-36) SECONDS Sodium 133 L (137-145) mmol/L Potassium 4.5 (3.4-5.1) mmol/L Chloride 100 (98-107) mmol/L Carbon Dioxide 24 (22-32) mmol/L BUN 57 H (9-20) mg/dL Creatinine 1.74 H (0.66-1.25) mg/dL Estimated GFR 41 L (>60) mL/min BUN/Creatinine Ratio 32.8 H (6-22) Glucose 153 H (80-110) mg/dL Lactate 1.5 (0.7-2.1) mmol/L Calcium 9.2 (8.4-10.2) mg/dL Magnesium 2.5 H (1.6-2.3) mg/dL Total Bilirubin 1.0 (0.2-1.3) mg/dL AST 38 (17-59) IU/L ALT 33 (<50) IU/L Alkaline Phosphatase 41 (38-126) U/L Total Creatine Kinase 69 58 (55-170) U/L Troponin I 0.064 H 0.212 H* (0.01-0.034) ng/mL NT-Pro-B Natriuret Pep 1230 H (<125) pg/mL Total Protein 7.3 (6.3-8.2) g/dL Albumin 2.6 L (3.5-5.0) g/dL Globulin 4.7 H (1.7-4.1) g/dL Albumin/Globulin Ratio 0.6 L (1.0-2.8) SARS-CoV-2 (PCR) Negative (Negative) Influenza A (RT-PCR) Flu a negative (NEGATIVE) Influenza B (RT-PCR) Flu b negative (NEGATIVE) RSV (PCR) Negative (Negative) 03/12/23 03/13/23 03/13/23 Range/Units 23:19 06:05 11:55 WBC (4.5-11.0) X10^3/uL RBC (4.5-5.9) X10^6/uL Hgb 13.8 (13.5-17.5) g/dL Hct 41.4 (41-53) % MCV (80-100) fL MCH (26-34) PG MCHC (30-36) % RDW (11.6-14.8) % Plt Count 122 L (150-400) X10^3/uL Neut % (Auto) (50-75) % Lymph % (Auto) (25-40) % [place] % (Auto) (3-14) % Eos % (Auto) (2-4) % Baso % (Auto) (0-2) % Neut # (Auto) (4547-3635) /uL Lymph # (Auto) (5884-2917) /uL [place] # (Auto) (0-900) /uL Eos # (Auto) (0-450) /uL Baso # (Auto) (0-100) /uL PT (10.1-12.7) SECONDS INR (0.9-1.3) APTT 60 H D 54 H (26-36) SECONDS Sodium (137-145) mmol/L Potassium (3.4-5.1) mmol/L Chloride (98-107) mmol/L Carbon Dioxide (22-32) mmol/L BUN (9-20) mg/dL Creatinine (0.66-1.25) mg/dL Estimated GFR (>60) mL/min BUN/Creatinine Ratio (6-22) Glucose (80-110) mg/dL Lactate (0.7-2.1) mmol/L Calcium (8.4-10.2) mg/dL Magnesium (1.6-2.3) mg/dL Total Bilirubin (0.2-1.3) mg/dL AST (17-59) IU/L ALT (<50) IU/L Alkaline Phosphatase (38-126) U/L Total Creatine Kinase 54 L 49 L (55-170) U/L Troponin I 0.378 H* 0.329 H* 0.225 H* (0.01-0.034) ng/mL NT-Pro-B Natriuret Pep (<125) pg/mL Total Protein (6.3-8.2) g/dL Albumin (3.5-5.0) g/dL Globulin (1.7-4.1) g/dL Albumin/Globulin Ratio (1.0-2.8) SARS-CoV-2 (PCR) (Negative) Influenza A (RT-PCR) (NEGATIVE) Influenza B (RT-PCR) (NEGATIVE) RSV (PCR) (Negative) 03/13/23 Range/Units 18:10 WBC (4.5-11.0) X10^3/uL RBC (4.5-5.9) X10^6/uL Hgb (13.5-17.5) g/dL Hct (41-53) % MCV (80-100) fL MCH (26-34) PG MCHC (30-36) % RDW (11.6-14.8) % Plt Count (150-400) X10^3/uL Neut % (Auto) (50-75) % Lymph % (Auto) (25-40) % [place] % (Auto) (3-14) % Eos % (Auto) (2-4) % Baso % (Auto) (0-2) % Neut # (Auto) (2130-5530) /uL Lymph # (Auto) (0791-0669) /uL [place] # (Auto) (0-900) /uL Eos # (Auto) (0-450) /uL Baso # (Auto) (0-100) /uL PT (10.1-12.7) SECONDS INR (0.9-1.3) APTT 54 H (26-36) SECONDS Sodium (137-145) mmol/L Potassium (3.4-5.1) mmol/L Chloride (98-107) mmol/L Carbon Dioxide (22-32) mmol/L BUN (9-20) mg/dL Creatinine (0.66-1.25) mg/dL Estimated GFR (>60) mL/min BUN/Creatinine Ratio (6-22) Glucose (80-110) mg/dL Lactate (0.7-2.1) mmol/L Calcium (8.4-10.2) mg/dL Magnesium (1.6-2.3) mg/dL Total Bilirubin (0.2-1.3) mg/dL AST (17-59) IU/L ALT (<50) IU/L Alkaline Phosphatase (38-126) U/L Total Creatine Kinase (55-170) U/L Troponin I (0.01-0.034) ng/mL NT-Pro-B Natriuret Pep (<125) pg/mL Total Protein (6.3-8.2) g/dL Albumin (3.5-5.0) g/dL Globulin (1.7-4.1) g/dL Albumin/Globulin Ratio (1.0-2.8) SARS-CoV-2 (PCR) (Negative) Influenza A (RT-PCR) (NEGATIVE) Influenza B (RT-PCR) (NEGATIVE) RSV (PCR) (Negative) Imaging Data Chest x-ray: Radiologist's Impression: PROCEDURE: XR CHEST 1V INDICATIONS: hypotension TECHNIQUE: One view of the chest was acquired. COMPARISON: [facility], , XR CHEST 1V, 04/03/2022, 1:54. [facility], CR, XR CHEST 1V, 02/28/2018, 2:01. FINDINGS: Surgical changes and devices: Sternotomy and left chest wall pacemaker and ICD generator with intravenous leads. Lungs and pleura: Lungs are clear. No pleural effusions or pneumothorax. Mediastinum: Mediastinal contours appear normal. Heart size is normal. Bones and chest wall: No suspicious bony lesions. Overlying soft tissues appear unremarkable. IMPRESSION: Portable chest within normal limits for age. ECG Data Attestation: I personally reviewed and interpreted this ECG as follows: Interpretation: Sinus rhythm Left axis deviation Normal QRS Nonspecific ST T wave changes MDM Narrative Medical decision making narrative: Asymptomatic since arrival here to the ER. Heart rate has been in the 60s. He is sinus rhythm on his EKG. Initial troponin greater than 99th percentile. Repeat troponin greater than AMI cut off. Were able to interrogate his pacemaker. I did discuss the case with Dr. Randolph boom tender on-call who is also the patient's wall taper. He was able to review of the report from the interrogation. It does not appear that the patient had any SVT/AFib episodes today. This is somewhat of a discrepancy for with the patient states was given on what he took his blood pressure. We did discuss the patient's elevated troponin. Dr. Randolph recommended trending troponins and obtaining an echocardiogram and transferring if possible. He recommended holding on any heparin for now. I did discuss all this with the patient. We will attempt to find bed placement at [facility]. Patient's troponin continue to increase so he was started on heparin. He remains chest pain-free. Care turned over to day provider to follow-up and disposition. <Elvira Browne, DO - Last Filed: 03/13/23 18:19> Lab Data Labs: Lab Results 03/12/23 03/12/23 03/12/23 Range/Units 17:21 17:30 20:18 WBC 8.5 (4.5-11.0) X10^3/uL RBC 5.14 (4.5-5.9) X10^6/uL Hgb 15.6 (13.5-17.5) g/dL Hct 46.4 (41-53) % MCV 90.3 (80-100) fL MCH 30.4 (26-34) PG MCHC 33.6 (30-36) % RDW 15.2 H (11.6-14.8) % Plt Count 147 L (150-400) X10^3/uL Neut % (Auto) 60.6 (50-75) % Lymph % (Auto) 29.0 (25-40) % [place] % (Auto) 7.6 (3-14) % Eos % (Auto) 2.0 (2-4) % Baso % (Auto) 0.8 (0-2) % Neut # (Auto) 5200 (8452-0739) /uL Lymph # (Auto) 2500 (8234-7333) /uL [place] # (Auto) 700 (0-900) /uL Eos # (Auto) 200 (0-450) /uL Baso # (Auto) 100 (0-100) /uL PT 14.1 H (10.1-12.7) SECONDS INR 1.2 (0.9-1.3) APTT 37 H (26-36) SECONDS Sodium 133 L (137-145) mmol/L Potassium 4.5 (3.4-5.1) mmol/L Chloride 100 (98-107) mmol/L Carbon Dioxide 24 (22-32) mmol/L BUN 57 H (9-20) mg/dL Creatinine 1.74 H (0.66-1.25) mg/dL Estimated GFR 41 L (>60) mL/min BUN/Creatinine Ratio 32.8 H (6-22) Glucose 153 H (80-110) mg/dL Lactate 1.5 (0.7-2.1) mmol/L Calcium 9.2 (8.4-10.2) mg/dL Magnesium 2.5 H (1.6-2.3) mg/dL Total Bilirubin 1.0 (0.2-1.3) mg/dL AST 38 (17-59) IU/L ALT 33 (<50) IU/L Alkaline Phosphatase 41 (38-126) U/L Total Creatine Kinase 69 58 (55-170) U/L Troponin I 0.064 H 0.212 H* (0.01-0.034) ng/mL NT-Pro-B Natriuret Pep 1230 H (<125) pg/mL Total Protein 7.3 (6.3-8.2) g/dL Albumin 2.6 L (3.5-5.0) g/dL Globulin 4.7 H (1.7-4.1) g/dL Albumin/Globulin Ratio 0.6 L (1.0-2.8) SARS-CoV-2 (PCR) Negative (Negative) Influenza A (RT-PCR) Flu a negative (NEGATIVE) Influenza B (RT-PCR) Flu b negative (NEGATIVE) RSV (PCR) Negative (Negative) 03/12/23 03/13/23 03/13/23 Range/Units 23:19 06:05 11:55 WBC (4.5-11.0) X10^3/uL RBC (4.5-5.9) X10^6/uL Hgb 13.8 (13.5-17.5) g/dL Hct 41.4 (41-53) % MCV (80-100) fL MCH (26-34) PG MCHC (30-36) % RDW (11.6-14.8) % Plt Count 122 L (150-400) X10^3/uL Neut % (Auto) (50-75) % Lymph % (Auto) (25-40) % [place] % (Auto) (3-14) % Eos % (Auto) (2-4) % Baso % (Auto) (0-2) % Neut # (Auto) (0860-3674) /uL Lymph # (Auto) (7641-1503) /uL [place] # (Auto) (0-900) /uL Eos # (Auto) (0-450) /uL Baso # (Auto) (0-100) /uL PT (10.1-12.7) SECONDS INR (0.9-1.3) APTT 60 H D 54 H (26-36) SECONDS Sodium (137-145) mmol/L Potassium (3.4-5.1) mmol/L Chloride (98-107) mmol/L Carbon Dioxide (22-32) mmol/L BUN (9-20) mg/dL Creatinine (0.66-1.25) mg/dL Estimated GFR (>60) mL/min BUN/Creatinine Ratio (6-22) Glucose (80-110) mg/dL Lactate (0.7-2.1) mmol/L Calcium (8.4-10.2) mg/dL Magnesium (1.6-2.3) mg/dL Total Bilirubin (0.2-1.3) mg/dL AST (17-59) IU/L ALT (<50) IU/L Alkaline Phosphatase (38-126) U/L Total Creatine Kinase 54 L 49 L (55-170) U/L Troponin I 0.378 H* 0.329 H* 0.225 H* (0.01-0.034) ng/mL NT-Pro-B Natriuret Pep (<125) pg/mL Total Protein (6.3-8.2) g/dL Albumin (3.5-5.0) g/dL Globulin (1.7-4.1) g/dL Albumin/Globulin Ratio (1.0-2.8) SARS-CoV-2 (PCR) (Negative) Influenza A (RT-PCR) (NEGATIVE) Influenza B (RT-PCR) (NEGATIVE) RSV (PCR) (Negative) 03/13/23 Range/Units 18:10 WBC (4.5-11.0) X10^3/uL RBC (4.5-5.9) X10^6/uL Hgb (13.5-17.5) g/dL Hct (41-53) % MCV (80-100) fL MCH (26-34) PG MCHC (30-36) % RDW (11.6-14.8) % Plt Count (150-400) X10^3/uL Neut % (Auto) (50-75) % Lymph % (Auto) (25-40) % [place] % (Auto) (3-14) % Eos % (Auto) (2-4) % Baso % (Auto) (0-2) % Neut # (Auto) (2162-0602) /uL Lymph # (Auto) (0273-9710) /uL [place] # (Auto) (0-900) /uL Eos # (Auto) (0-450) /uL Baso # (Auto) (0-100) /uL PT (10.1-12.7) SECONDS INR (0.9-1.3) APTT 54 H (26-36) SECONDS Sodium (137-145) mmol/L Potassium (3.4-5.1) mmol/L Chloride (98-107) mmol/L Carbon Dioxide (22-32) mmol/L BUN (9-20) mg/dL Creatinine (0.66-1.25) mg/dL Estimated GFR (>60) mL/min BUN/Creatinine Ratio (6-22) Glucose (80-110) mg/dL Lactate (0.7-2.1) mmol/L Calcium (8.4-10.2) mg/dL Magnesium (1.6-2.3) mg/dL Total Bilirubin (0.2-1.3) mg/dL AST (17-59) IU/L ALT (<50) IU/L Alkaline Phosphatase (38-126) U/L Total Creatine Kinase (55-170) U/L Troponin I (0.01-0.034) ng/mL NT-Pro-B Natriuret Pep (<125) pg/mL Total Protein (6.3-8.2) g/dL Albumin (3.5-5.0) g/dL Globulin (1.7-4.1) g/dL Albumin/Globulin Ratio (1.0-2.8) SARS-CoV-2 (PCR) (Negative) Influenza A (RT-PCR) (NEGATIVE) Influenza B (RT-PCR) (NEGATIVE) RSV (PCR) (Negative) ECG Data Interpretation: Sinus rhythm Left axis deviation Normal QRS Nonspecific ST T wave changes EKG 2. At 1:43 p.m. paced rhythm rate of 60 FL 264, QRS of 98 QTC 450. Patient does appear to have some new ST depression in lateral leads the 2 through 6, no elevation 1 and aVL appears same. MDM Narrative Medical decision making narrative: Asymptomatic since arrival here to the ER. Heart rate has been in the 60s. He is sinus rhythm on his EKG. Initial troponin greater than 99th percentile. Repeat troponin greater than AMI cut off. Were able to interrogate his pacemaker. I did discuss the case with Dr. Randolph boom tender on-call who is also the patient's wall taper. He was able to review of the report from the interrogation. It does not appear that the patient had any SVT/AFib episodes today. This is somewhat of a discrepancy for with the patient states was given on what he took his blood pressure. We did discuss the patient's elevated troponin. Dr. Randolph recommended trending troponins and obtaining an echocardiogram and transferring if possible. He recommended holding on any heparin for now. I did discuss all this with the patient. We will attempt to find bed placement at [facility]. Patient's troponin continue to increase so he was started on heparin. He remains chest pain-free. Care turned over to day provider to follow-up and disposition. 03/13/23 Mank: Patient signed out to myself by Dr. Choudhury. Patient seen independently evaluated by myself. 72-year-old male with known coronary artery disease, atrial fibrillation, SVT has had a prior CABG, pacemaker/defibrillator. He is anticoagulated on Eliquis. Patient felt like he had some tachycardia last night but pacemaker was interrogated and had no tachycardic issues or arrhythmias noted. Patient's blood pressures been soft overnight labs showed trending upwards troponin which is now positive. Patient appears to have some CKD but not significantly elevated from past and has BNP slightly elevated. Chest x-ray does not show acute changes. Patient case was discussed with Dr. Randolph who recommended transfer. Waiting potential bed at [facility] patient has been on heparin overnight received aspirin and did have fluids overnight. Most recent troponin was now trending down words. Initial was indeterminate 0.064 with a secondary positive at 0.21 to highest at at 0.378 and now repeat this morning at 6:00 a.m. trending down slightly at 0.329. EKG was reviewed no acute or dynamic changes noted from 07/02/2020 possible some flattening in lateral leads but no clear ST elevation or depression changes. Patient did have a visit on 04/03/2022 with CHF and at that time had significant depressions and changes which are not seen today. If no beds available at [facility] today we will seek placement elsewhere. Patient took his home medications without asking. Discussed he can not take his Eliquis, he states he will not do that again he did also take his amiodarone and metoprolol he notes his blood pressure sometimes do run in the 80s or 90s and states it is not atypical, he states he did not have any tachycardia last night that his pressures were 1 teens last night on his check. He states he did have chest pain/pressure. He states it since resolved he has not had any reoccurrence. Patient was agreeable to go to [facility] unless it takes more than a day. He is very reluctant to transfer to outside facilities and talks about leaving if that is the case. Patient does understand he is having heart attack at this time he is agreeable to wait and see if a bed opens up later today. Spoke with Cardiology PA who feels patient would be appropriate for transfer. Bit to Medicine with consultation. Maybe Wednesday before catheterization is patient took his Eliquis this morning. Spoke with Dr. Monaco, hospitalist who accepts for transfer. Reviewed all findings. Patient did take his home medications without forming a so he did have Eliquis this morning on top of his heparin and needs to be monitored. Patient was initially reluctant to be transferred anywhere but [facility] discussed there are no beds currently available we have called regionally in [facility] regional hotline and he was encouraged to accept transfer. After discussion patient in agreement. He also notes he will not take any of his other medications without consulting with the staff 1st. Patient troponin trending downward. Continues to be asymptomatic. Critical Care Time <Elvira Browne, DO - Last Filed: 03/13/23 18:19> Critical Care Time Critical Care Time: Yes Total Critical Care Time: 45 Attestation: The high probability of a clinically significant, sudden or life threatening deterioration of the [cardiac, pulm] system(s) required my full and direct attention, intervention and personal management. The aggregate critical care time was [] minutes. This time is in addition to time spent performing reported procedures but includes the following: [x] Data Review and interpretation [x] Patient assessment and monitoring of vital signs [x] Documentation [x] Medication orders and management Discharge Plan [facility]art[facility] Impression: Non-ST elevation AK (NSTEMI) Prescriptions: No Action rosuvastatin 40 mg tablet 40 mg PO DAILY niacin 500 mg tablet 500 mg PO BID nitroglycerin 0.4 mg tablet, sublingual 0.4 mg SL Q5-15M PRN (Reason: Chest Pain) apixaban [Eliquis] 5 mg tablet 5 mg PO BID ezetimibe [Zetia] 10 mg tablet 10 mg PO DAILY sucralfate 1 gram tablet 1 g PO BID Qty: 180 1RF spironolactone 25 mg tablet 12.5 mg PO DAILY torsemide 20 mg tablet 20 mg PO DAILY Rx Instructions: 2OMG ONE DAY THEN 10MG THE NEXT ALTERNATE LIKE THIS omeprazole 20 mg tablet,delayed release (DR/EC) 20 mg PO DAILY Qty: 90 2RF triamcinolone acetonide 0.1 % cream 1 applic topical BID Jardiance 10 mg tablet 10 mg PO DAILY Qty: 90 3RF fluorouracil [Efudex] 5 % cream 1 applic topical BID Jardiance 10 mg tablet 10 mg PO DAILY mupirocin 2 % ointment 1 applic topical BID Skyrizi 150 mg/mL pen injector 150 mg SUBCUT Q12W amiodarone 200 mg tablet 100 mg PO DAILY Patient Comments: reducing to 100mg as of 01/28/23, may increase back to 200mg next appt. 02/15/23 docusate sodium 100 mg Capsule 100 mg PO DAILY terazosin 10 MG capsule 10 mg PO QHS aspirin 81 mg Tablet,Delayed Release (Dr/Ec) 81 mg PO DAILY Entresto 24-26 mg tablet 1 tab PO BID Qty: 60 0RF metoprolol succinate 50 mg tablet extended release 24 hr 75 mg PO BID Referrals: Homero Orona DO [Primary Care Provider] -
[2023-03-12 18:34] LABS: COVID-19 CEPHEID 4-PLEX PCR Negative (Negative)
[2023-03-12 20:37] LABS: Creatine Kinase 58 U/L (55-170)
[2023-03-12 20:54] LABS: Troponin I 0.212 ng/mL (0.01-0.034)
[2023-03-12] MEDS: ASPIRIN 81 MG CHEW TAB 324 MG PO (20:59)
[2023-03-12 21:07] LABS: INR 1.2 (0.9-1.3); Prothrombin Time 14.1 SECONDS (10.1-12.7)
[2023-03-12 21:09] LABS: PTT Partial Thromboplastin Tim 37 SECONDS (26-36)
--- NOTE | 2023-03-12 23:00 | PC.NURSE ---
PT's sbp dropped into the 80s, provider aware and said pt had been in the 80s, To update him if he drops into the 70s or is symptomatic, pt denies any dizziness at this time.
[2023-03-12 23:34] LABS: Creatine Kinase 54 U/L (55-170)
[2023-03-12 23:54] LABS: Troponin I 0.378 ng/mL (0.01-0.034)
[2023-03-13] VITALS (49 sets, daily range): BP systolic 80–130; BP diastolic 42–76; PULSE 59–69; RESP 10–32; O2SAT 92–98
[2023-03-13] MEDS: HEPARIN 5,000 UNIT/ML VIAL 5000 UNIT IV (00:03)
[2023-03-13] MEDS: HEPARIN DRIP 25,000 UNIT/500 ML IV.SOLN 20 UNIT IV (00:03)
--- NOTE | 2023-03-13 00:05 | PC.NURSE ---
Pt transferred to hospital bed. Pt updated on plan of care. Heparin gtt initiated. Reports zero chest pain at this time.
--- NOTE | 2023-03-13 01:58 | DI.ECHO.S_ITS ---
[facility]+ [facility] +---------+ : : [address] [place] : : : : [id number] : : : : Phone: [phone]---------+ Echocardiogram Report + + :Name: CHAVO ACUÑA Study Date: 03/13/2023 Height: 71 in : :[facility] ReadingLocation: [facility] Weight: 242 lb: : Gender: Male BSA: 2.3 m2 : :: 1950 Age: 72 yrs BP: 99/54 mmHg: :Reason For Study: NSTEMI : : Performed By: Africa Moran : :Referring: KADE KIRBY : + + Interpretation Summary The left ventricle is normal in size. Left ventricular systolic function is mildly reduced. The ejection fraction is estimated to be 40-45%. LVEF has not changed since prior study. There are no obvious focal wall motion abnormalities noted but poor endocardial definition reduces the sensitivity for the detection of such. Diastolic parameters suggest a relaxation abnormality of the left ventricle, consistent with probable normal filling pressures. The right ventricle is normal in size and function. There is a pacemaker lead in the right ventricle. The right ventricular systolic pressure is estimated to be at least 24 mmHg based on an estimated right atrial pressure of 3 mm Hg. Both atria are normal in size. There is mild aortic regurgitation. The aortic root is mildly dilated. Procedure: A two-dimensional transthoracic echocardiogram with color flow and Doppler was performed. The study quality was technically adequate. Comparison is made with the echocardiogram of 11/25/2022. A contrast injection of Definity was performed to improve assessment of LV function. The patient was in normal sinus rhythm during the exam. The patient had occasional PVCs during the exam. Left Ventricle: The left ventricle is normal in size. Left ventricular wall thickness is mildly increased. Left ventricular systolic function is mildly reduced. The ejection fraction is estimated to be 40-45%. There are no obvious focal wall motion abnormalities noted but poor endocardial definition reduces the sensitivity for the detection of such. Diastolic parameters suggest a relaxation abnormality of the left ventricle, consistent with probable normal filling pressures. Right Ventricle: The right ventricle is normal in size and function. There is a pacemaker lead in the right ventricle. Atria: Both atria are normal in size. There is no Doppler evidence for an interatrial shunt. Mitral Valve: The mitral valve leaflets appear to open well. There is mild mitral annular calcification. There is mild mitral regurgitation. Aortic Valve: The aortic valve is trileaflet. The aortic valve opens well. There is mild aortic valve sclerosis. There is no aortic valve stenosis. There is mild aortic regurgitation. Tricuspid Valve: The tricuspid valve leaflets are thin and pliable. There is mild tricuspid regurgitation. The right ventricular systolic pressure is estimated to be at least 24 mmHg based on an estimated right atrial pressure of 3 mm Hg. Pulmonic Valve: The pulmonic valve leaflets are thin and pliable; valve motion is normal. There is mild pulmonic regurgitation. Great Vessels: The aortic root is mildly dilated. The ascending aorta is normal in size. The aortic arch could not be visualized. The IVC is of normal diameter and collapses greater than 50% with a sniff. This suggests a low right atrial pressure of 3 mm Hg. Pericardium/ Pleura There is no pericardial effusion. There is no pleural effusion. MMode/2D Measurements & Calculations LVIDd: 4.4 cm LVOT diam: 2.2 cm LVIDs: 3.8 cm Ao root diam: 4.1 cm FS: 14.1 % asc Aorta Diam: 3.4 cm EPSS: 1.5 cm IVSd: 1.1 cm LVPWd: 1.1 cm LV hartley. diameter/BSA (cm/m^2): 1.9 LV sys. diameter/BSA (cm/m^2): 1.7 LA A2 area: 20.8 cm2 RA long axis: 4.9 cm LA A4 area: 18.1 cm2 RA area: 16.7 cm2 LA length (vol): 5.6 cm RA vol: 47.7 ml LA vol: 56.9 ml RA : 20.9 ml/m2 LA vol index: 24.9 ml/m2 IVC diam: 2.1 cm TAPSE: 2.1 cm Doppler Measurements & Calculations Ao V2 max: 157.8 cm/sec LVOT Max Connor: 79.1 cm/sec Ao V2 mean: 119.7 cm/sec LV V1 max P.5 mmHg Ao max P.0 mmHg LV V1 VTI: 16.7 cm Ao mean P.1 mmHg CECILLE(I,D): 1.7 cm2 Ao V2 VTI: 35.9 cm CECILLE(V,D): 1.8 cm2 sev ratio: 0.46 CECILLE indexed to BSA (cm^2/m^2): 0.74 AI P1/2t: 594.5 msec AI dec slope: 151.1 cm/sec2 MV E max connor: 48.5 cm/sec TR max connor: 228.4 cm/sec MV A max connor: 68.1 cm/sec TR max P.9 mmHg MV E/A: 0.71 PA pr(Accel): 35.3 mmHg Med Peak E' Connor: 4.6 cm/sec E/E' med: 10.5 Lat Peak E' Connor: 10.7 cm/sec E/E' lat: 4.6 E/e' average: 7.5 MV dec time: 0.31 sec SV(LVOT): 60.9 ml Reading Physician:03:22 PM
[2023-03-13 06:11] LABS: Hematocrit 41.4 % (41-53); Hemoglobin 13.8 g/dL (13.5-17.5); Platelet Count 122 X10^3/uL (150-400)
[2023-03-13 06:24] LABS: PTT Partial Thromboplastin Tim 60 SECONDS (26-36)
[2023-03-13 06:36] LABS: Creatine Kinase 49 U/L (55-170)
[2023-03-13 06:53] LABS: Troponin I 0.329 ng/mL (0.01-0.034)
--- NOTE | 2023-03-13 09:37 | PC.NURSE ---
Addendum entered by Tara Ta CNA 03/13/23 10:13: Dr Browne aware that pt took home meds. Education provided to pt regarding the need to discuss with provider prior to administering his own home medications. Pt verbalized understanding of teaching. Original Note: pt states that he took his morning meds. Amioderone 5mg, Apaxaban 5mg, Aspirin 81mg, Entresto 24-26mgs, metoprolol succinate 1.5 tablet (75mg total), niacin 250mg
--- NOTE | 2023-03-13 11:01 | PC.NURSE ---
pt ambulated to bathroom with steady gait and independently. pt denies SOB, CP, dizziness or lightheadedness.
--- NOTE | 2023-03-13 12:15 | PC.NURSE ---
TRANSLATOR INTERPRETER note: Contacted [facility] AT [phone] to inquire about bed status update, spoke with Jose Juan at [facility], Jose Juan stated no change at this time, pt. is waitlisted. Spoke with provider Pavan, suggested calling other facilities. Called [facility] at [phone] and spoke with Shay, asked bed status. Shay stated beds were full, but hopeful for discharges in the afternoon and advise a call back in a few hours. Faxed over ED doc note and face sheet to [facility]. Other facilities were at [facility], [facility] and . [facility] called back at [phone] stated they may be able to accept pt. and will call back with a provider on the line. Mr. Flaherty prefers [facility].
[2023-03-13 12:21] LABS: PTT Partial Thromboplastin Tim 54 SECONDS (26-36)
[2023-03-13 12:38] LABS: Troponin I 0.225 ng/mL (0.01-0.034)
[2023-03-13 18:30] LABS: PTT Partial Thromboplastin Tim 54 SECONDS (26-36)
--- NOTE | 2023-03-19 14:32 | PC.NURSE ---
late entry. Per RN patient was transferred to another facility with Heparin drip infusing.
== END 2023-03-13 18:28 | disposition short-term general hospital (02) ==
PROVIDERS: Emergency Medicine; Emergency Provider Emergency Medicine; PCP Family Medicine; Referring Provider Internal Medicine Cardiovascular Disease
DX: I21.4 Non-ST elevation (NSTEMI) myocardial infarction (principal); R00.2 Palpitations; Z79.01 Long term (current) use of anticoagulants; Z79.899 Other long term (current) drug therapy; Z20.822 Contact with and (suspected) exposure to COVID-19; Z95.0 Presence of cardiac pacemaker
CPT/HCPCS: 0241U; 36415; 71045; 80053; 82550; 83605; 83735; 83880; 84484; 85014; 85018; 85025; 85049; 85610; 85730; 93005; 93010; 93306; 96361; 96365; 96366; 96375; 99284; 99291; J1644; Q9957

== ENCOUNTER → 2023-03-17 09:50 | Outpatient (CLI) | payer OTHER, SELFPAY ==
[2023-01-29 16:30] VITALS: BMI 38.4
[2023-03-17 11:25] LABS: Creatinine Urine Random 92.5 mg/dL
[2023-03-17 11:30] LABS: Microalbumi Creatinin Ratio Ur 6.4 ug/mg CR (<30); Microalbumin Urine Random 0.6 mg/dL (0-1.6)
== END ==
PROVIDERS: PCP Family Medicine; Referring Provider Family Medicine; Visit Provider Family Medicine
DX: I10 Essential (primary) hypertension (principal)
CPT/HCPCS: 82043; 82570

== ENCOUNTER → 2023-03-17 10:00 | Outpatient (CLI) | payer OTHER, SELFPAY ==
[2023-01-29 16:30] VITALS: BMI 38.4
== END ==
PROVIDERS: PCP Family Medicine; Referring Provider Physician Assistant; Visit Provider Surgery
DX: I70.235 Atherosclerosis of native arteries of right leg with ulceration of other part of foot (principal); I87.2 Venous insufficiency (chronic) (peripheral); L97.512 Non-pressure chronic ulcer of other part of right foot with fat layer exposed; E11.42 Type 2 diabetes mellitus with diabetic polyneuropathy; E11.51 Type 2 diabetes mellitus with diabetic peripheral angiopathy without gangrene; M79.671 Pain in right foot; E11.622 Type 2 diabetes mellitus with other skin ulcer
CPT/HCPCS: 11042

== ENCOUNTER → 2023-03-22 11:35 | Outpatient (CLI) | payer OTHER, SELFPAY ==
[2023-01-29 16:30] VITALS: BMI 38.4
[2023-03-23 06:00] LABS: Fructosamine 240 umol/L (0-285)
== END ==
PROVIDERS: PCP Family Medicine; Referring Provider Family Medicine; Visit Provider Family Medicine
DX: E11.22 Type 2 diabetes mellitus with diabetic chronic kidney disease (principal)
CPT/HCPCS: 36415; 82985

== ENCOUNTER → 2023-03-24 09:19 | Outpatient (CLI) | payer OTHER, SELFPAY ==
[2023-01-29 16:30] VITALS: BMI 38.4
== END ==
PROVIDERS: PCP Family Medicine; Referring Provider Physician Assistant; Visit Provider Surgery
DX: E11.51 Type 2 diabetes mellitus with diabetic peripheral angiopathy without gangrene (principal); I70.235 Atherosclerosis of native arteries of right leg with ulceration of other part of foot; L97.512 Non-pressure chronic ulcer of other part of right foot with fat layer exposed; I87.2 Venous insufficiency (chronic) (peripheral); I10 Essential (primary) hypertension; E78.5 Hyperlipidemia, unspecified; I25.119 Atherosclerotic heart disease of native coronary artery with unspecified angina pectoris; I25.2 Old myocardial infarction; Z95.1 Presence of aortocoronary bypass graft; Z95.0 Presence of cardiac pacemaker; Z85.828 Personal history of other malignant neoplasm of skin; Z87.891 Personal history of nicotine dependence
CPT/HCPCS: 11042; 97597; 99213

== ENCOUNTER → 2023-03-31 09:50 | Outpatient (CLI) | payer OTHER, SELFPAY ==
[2023-01-29 16:30] VITALS: BMI 38.4
== END ==
PROVIDERS: PCP Family Medicine; Referring Provider Physician Assistant; Visit Provider Surgery
DX: L97.512 Non-pressure chronic ulcer of other part of right foot with fat layer exposed (principal); E11.621 Type 2 diabetes mellitus with foot ulcer; I73.9 Peripheral vascular disease, unspecified; E11.42 Type 2 diabetes mellitus with diabetic polyneuropathy
CPT/HCPCS: 11042; 97597

== ENCOUNTER → 2023-04-12 08:38 | Outpatient (CLI) | payer OTHER, SELFPAY ==
[2023-01-29 16:30] VITALS: BMI 38.4
[2023-04-12 10:33] LABS: Alanine Aminotransferase 20 IU/L (<50); Albumin 3.9 g/dL (3.5-5.0); Albumin Globulin Ratio 1.4 (1.0-2.8); Alkaline Phosphatase 46 U/L (38-126); Aspartate Aminotransferase 20 IU/L (17-59); BUN Creatinine Ratio 27.5 (6-22); Bilirubin Total 1.2 mg/dL (0.2-1.3); Blood Urea Nitrogen 44 mg/dL (9-20); Calcium 9.4 mg/dL (8.4-10.2); Carbon Dioxide 27 mmol/L (22-32); Chloride 101 mmol/L (98-107); Cholesterol 115 mg/dL (140-199); Estimated Glomerular Filt Rate 46 mL/min (>60); Globulin 2.8 g/dL (1.7-4.1); Glucose 139 mg/dL (80-110); HDL Cholesterol 33 mg/dL (40-60); HEMOLYSIS < 15 (0-50); LDL Cholesterol Calculated 46 mg/dL (<100); Potassium 3.9 mmol/L (3.4-5.1); Sodium 136 mmol/L (137-145); Total Protein 6.7 g/dL (6.3-8.2); Triglycerides 180 mg/dL (35-150)
[2023-04-12 10:58] LABS: Thyroid Stimulating Hormone 2.32 uIU/mL (0.47-4.68)
== END ==
PROVIDERS: PCP Family Medicine; Referring Provider Internal Medicine Cardiovascular Disease; Visit Provider Internal Medicine Cardiovascular Disease
DX: Z95.1 Presence of aortocoronary bypass graft (principal); Z79.899 Other long term (current) drug therapy; E11.22 Type 2 diabetes mellitus with diabetic chronic kidney disease; N18.30 Chronic kidney disease, stage 3 unspecified
CPT/HCPCS: 36415; 80053; 80061; 83036; 84443

== ENCOUNTER → 2023-04-14 11:15 | Outpatient (CLI) | payer OTHER, SELFPAY ==
[2023-01-29 16:30] VITALS: BMI 38.4
== END ==
PROVIDERS: PCP Family Medicine; Referring Provider Physician Assistant; Visit Provider Surgery
DX: L97.512 Non-pressure chronic ulcer of other part of right foot with fat layer exposed (principal); E11.621 Type 2 diabetes mellitus with foot ulcer; I73.9 Peripheral vascular disease, unspecified; E11.42 Type 2 diabetes mellitus with diabetic polyneuropathy
CPT/HCPCS: 11042

== ENCOUNTER → 2023-04-21 08:57 | Outpatient (CLI) | payer OTHER, SELFPAY ==
[2023-01-29 16:30] VITALS: BMI 38.4
== END ==
PROVIDERS: PCP Family Medicine; Referring Provider Physician Assistant; Visit Provider Surgery
DX: L97.512 Non-pressure chronic ulcer of other part of right foot with fat layer exposed (principal); E11.621 Type 2 diabetes mellitus with foot ulcer; I73.9 Peripheral vascular disease, unspecified; E11.42 Type 2 diabetes mellitus with diabetic polyneuropathy
CPT/HCPCS: 11042; 99212; 99213

== ENCOUNTER → 2023-04-22 09:21 | Outpatient (CLI) | payer OTHER, SELFPAY ==
[2023-01-29 16:30] VITALS: BMI 38.4
== END ==
PROVIDERS: PCP Family Medicine; Referring Provider Internal Medicine Cardiovascular Disease; Visit Provider Internal Medicine Cardiovascular Disease
DX: Z79.899 Other long term (current) drug therapy (principal); Z87.891 Personal history of nicotine dependence; J98.8 Other specified respiratory disorders
CPT/HCPCS: 94060; 94726; 94729

== ENCOUNTER → 2023-04-28 13:43 | Outpatient (CLI) | payer OTHER, SELFPAY ==
[2023-01-29 16:30] VITALS: BMI 38.4
== END ==
PROVIDERS: PCP Family Medicine; Referring Provider Physician Assistant; Visit Provider Surgery
DX: L97.512 Non-pressure chronic ulcer of other part of right foot with fat layer exposed (principal); E11.621 Type 2 diabetes mellitus with foot ulcer; R60.0 Localized edema
CPT/HCPCS: 11042

== ENCOUNTER → 2023-05-05 08:30 | Outpatient (CLI) | payer OTHER, SELFPAY ==
[2023-01-29 16:30] VITALS: BMI 38.4
== END ==
PROVIDERS: PCP Family Medicine; Referring Provider Physician Assistant; Visit Provider Surgery
DX: L97.512 Non-pressure chronic ulcer of other part of right foot with fat layer exposed (principal); E11.621 Type 2 diabetes mellitus with foot ulcer; R60.0 Localized edema
CPT/HCPCS: 11042

== ENCOUNTER → 2023-05-12 11:15 | Outpatient (CLI) | payer OTHER, SELFPAY ==
[2023-01-29 16:30] VITALS: BMI 38.4
== END ==
LOC: WC 11:15
PROVIDERS: PCP Family Medicine; Referring Provider Family Medicine; Visit Provider Surgery
DX: E11.621 Type 2 diabetes mellitus with foot ulcer (principal); L97.512 Non-pressure chronic ulcer of other part of right foot with fat layer exposed; R60.0 Localized edema
CPT/HCPCS: 99213

== ENCOUNTER → 2023-05-19 08:48 | Outpatient (CLI) | payer OTHER, SELFPAY ==
[2023-01-29 16:30] VITALS: BMI 38.4
== END ==
LOC: WC 08:49
PROVIDERS: PCP Family Medicine; Referring Provider Physician Assistant; Visit Provider Surgery
DX: E11.621 Type 2 diabetes mellitus with foot ulcer (principal); L97.512 Non-pressure chronic ulcer of other part of right foot with fat layer exposed; R60.0 Localized edema; I73.9 Peripheral vascular disease, unspecified; I25.10 Atherosclerotic heart disease of native coronary artery without angina pectoris; Z87.891 Personal history of nicotine dependence
CPT/HCPCS: 11042; 99213

== ENCOUNTER → 2023-05-26 09:09 | Outpatient (CLI) | payer OTHER, SELFPAY ==
[2023-05-24 09:46] VITALS: BMI 38.4
== END ==
LOC: WC 09:13
PROVIDERS: PCP Family Medicine; Referring Provider Physician Assistant; Visit Provider Surgery
DX: E11.621 Type 2 diabetes mellitus with foot ulcer (principal); L97.512 Non-pressure chronic ulcer of other part of right foot with fat layer exposed; R60.0 Localized edema; E11.51 Type 2 diabetes mellitus with diabetic peripheral angiopathy without gangrene; I70.235 Atherosclerosis of native arteries of right leg with ulceration of other part of foot; I87.2 Venous insufficiency (chronic) (peripheral); I25.110 Atherosclerotic heart disease of native coronary artery with unstable angina pectoris; Z98.62 Peripheral vascular angioplasty status; Z95.1 Presence of aortocoronary bypass graft
CPT/HCPCS: 11042

== ENCOUNTER → 2023-06-02 10:57 | Outpatient (CLI) | payer OTHER, SELFPAY ==
[2023-05-24 09:46] VITALS: BMI 38.4
== END ==
LOC: WC 11:04
PROVIDERS: PCP Family Medicine; Referring Provider Physician Assistant; Visit Provider Surgery
DX: L97.512 Non-pressure chronic ulcer of other part of right foot with fat layer exposed (principal); E11.621 Type 2 diabetes mellitus with foot ulcer; I73.9 Peripheral vascular disease, unspecified; R60.0 Localized edema; I25.10 Atherosclerotic heart disease of native coronary artery without angina pectoris
CPT/HCPCS: 11042; 99213

== ENCOUNTER → 2023-06-09 09:49 | Outpatient (CLI) | payer OTHER, SELFPAY ==
[2023-05-24 09:46] VITALS: BMI 38.4
== END ==
LOC: WC 09:50
PROVIDERS: PCP Family Medicine; Referring Provider Physician Assistant; Visit Provider Surgery
DX: L97.512 Non-pressure chronic ulcer of other part of right foot with fat layer exposed (principal); E11.621 Type 2 diabetes mellitus with foot ulcer; R60.0 Localized edema; I73.9 Peripheral vascular disease, unspecified; I25.10 Atherosclerotic heart disease of native coronary artery without angina pectoris
CPT/HCPCS: 11042

== ENCOUNTER → 2023-06-17 08:33 | Outpatient (CLI) | payer OTHER, SELFPAY ==
[2023-05-24 09:46] VITALS: BMI 38.4
== END ==
LOC: WC 08:35
PROVIDERS: PCP Family Medicine; Referring Provider Physician Assistant; Visit Provider Surgery
DX: L97.512 Non-pressure chronic ulcer of other part of right foot with fat layer exposed (principal); E11.621 Type 2 diabetes mellitus with foot ulcer; I73.9 Peripheral vascular disease, unspecified; R60.0 Localized edema; R20.8 Other disturbances of skin sensation; I25.10 Atherosclerotic heart disease of native coronary artery without angina pectoris
CPT/HCPCS: 15275; Q4159

== ENCOUNTER → 2023-06-24 09:09 | Outpatient (CLI) | payer OTHER, SELFPAY ==
[2023-05-24 09:46] VITALS: BMI 38.4
--- NOTE | 2023-06-24 | OV.WND_ITS ---
Progress Note Details Patient Name: Blair Flaherty Patient Number: [id number] Clinician: Tiana Cmapbell Patient Date of : 1950 Physician / Window Installation Subcontractor: Chucho Wilkerson Patient SUBJECTIVE Chief Complaint This information was obtained from the Chart, Patient. wound to right foot Allergies methotrexate (Severity: Moderate, Reaction: Sweats, irritation) HPI This information was obtained from the Patient. The following HPI elements were documented for the patient's wound: Location: R foot Duration: 07/2022 Context: diabetic/arterial Associated Signs and Symptoms: none The patient is a 72 year old male with type 2 diabetes mellitus, PAD, CAD, and chronic venous insufficiency who returns today for follow up of an ulcer on the dorsum of the right foot. The patient 1st noted the ulcer July 2022 after wearing some new shoes. He was previously receiving dressing changes with Hydrofera blue and Promogran. last week he had the 1st application of Affinity. Past history is remarkable for treatment of multiple wounds from Moh's surgery. The patient had an arterial ultrasound January 06, 2023 which revealed severe arterial insufficiency in the lower extremities at rest with superficial femoral, popliteal, and tibioperoneal occlusive changes. The patient had an arteriogram on March 04 which showed occlusion of the mid SFA and 70% stenosis of the right profunda femoral artery. An angioplasty of the right profunda femoral artery was done. He had a follow up with vascular imaging, but did not follow up with vascular surgery. On exam today the ulcer on the dorsum of the foot has improved slightly measurements, rolled edges, no signs of infection. The patient is not currently on any antibiotic therapy. The patient is without concerns, or complaints, he denies fevers, chills, no changes to overall health. He reports a good appetite in his taking protein supplementation. He does not regularly check his blood glucose. LABS: 12/29/22: Culture right foot grew mixed skin miguel 12/29/22: WBC 6.3, hemoglobin 15.3, HCT 45.5, hemoglobin A1c 8.8 08/20/22: Electrolytes unremarkable, BUN 27, creatinine 1.58, GFR 46, LFTs normal 04/27/22: WBC 6.5, hemoglobin 16.3, HCT 48.5 Family History This information was obtained from the Patient. Heart Disease- Mother, Father Social History This information was obtained from the Chart, Patient. Blair Flaherty [id number] 1950 Former smoker: june 2020 Alcohol Use: occassionally Caffeine Use: 1-2/day Children: 3 Lives in: Private home Marital Status: Retired Medical History This information was obtained from the Chart, Patient. Patient has a medical history of: Coronary Artery Disease (CABG 2002) Arthritis Psoriasis History of squamous cell skin cancer Peripheral Vascular Disease Hypertension Hyperlipidemia Abdominal Aorta Thrombosis EMILIANA Myocardial Infarction ([place]) Bladder cancer Additional Information Does patient have a history of Cancer? Yes? Complete all questions.: Yes Surgical History This information was obtained from the Chart, Patient. Patient has a surgical history of: Coronary Artery Bypass Graft (CABG)- 05/17/2002 (Triple bypass) Mohs procedures- (bilateral lower extremities) Tonsilectomy- Appendectomy- Right ankle repair- (from trauma, nearly amputated (s)) Endoscopy- (LLE, May 2019) Pacemaker/Defibrillator- Moh's- (multiple (recently Jan 2021)) Arteriogram- 02/28/2023 Review of Systems (ROS) This information was obtained from the Patient. Complaints and Symptoms Patient com plains of: Co-Morbid Conditions: Coronary Artery Disease, Peripheral Arterial Disease, Venous Insuffiency Patient denies com plaints or sy m ptom s related to: Cardiovascular (Central): Chest Pain, Dyspnea on Exertion Constitutional Symptoms (General Health): Chills, Fever, Loss of Appetite, Marked Weight Change Blair Flaherty [id number] 1950 Prior Wound History Respiratory: Cough, Shortness of Breath OBJECTIVE Vitals Height/Length: 72 in (182.88 cm), Weight: 245.8 lbs (111.73 kgs), BMI: 33.3, Temperature: 97.4 ?F (36.33 ?C), Pulse: 61 bpm, Respiratory Rate: 18 breaths/min, Blood Pressure: 102/66 mmHg, Pulse Oximetry: 98 %. Physical Exam Constitutional: Vital signs reviewed and noted. Well developed, well nourished, and in no acute distress. Alert and oriented x3. Respiratory: Even respirations without use of accessory muscles. No intercoastal retractions noted. Even and non labored respiration. Integumentary (Hair, Skin): See wound assessment. Neurological: decreased lower extremity sensation. Psychiatric: Orientation to time, place and person: Normal affect with normal thought pattern. Additional Information The patient's potential to heal is: fair. Lower Extremity Assessment Vascular Assessment Left Extremity Colors, hair growth, and conditions: Extremity Color: Pigmented Hair Growth on Extremity: Yes Temperature of Extremity: Warm Capilary Refill: < 3 seconds Erythema: No Dependent Rubor: No Hyperpigmentation: Yes Lipodermatosclerosis: No Right Extremity Colors, hair growth, and conditions: Extremity Color: Pigmented Hair Growth on Extremity: Yes Temperature of Extremity: Warm Capilary Refill: < 3 seconds Erythema: No Dependent Rubor: Yes Hyperpigmentation: Yes Lipodermatosclerosis: No Wound Assessment(s) Wound #9 Right, Dorsal Foot is a chronic Strange Grade 2 Diabetic Ulcer and has received a status of Not Healed. Initial wound encounter measurements are 0.3cm length x 0.8cm width x 0.3 cm depth, with an area of 0.24 sq cm and a volume of 0.072 cubic cm. Adipose is exposed. No tunneling has been noted. No sinus tract has been noted. No undermining has been noted. There is a Moderate amount of serosanguineous drainage noted which has no odor. The patient reports a wound pain of level 0/10. The wound margin is rolled Wound bed has Yes, bright red, pink, firm, granulation, Yes slough, No eschar, Yes epithelialization. Blair Flaherty [id number] 1950 The periwound skin exhibited edema and maceration. The periwound skin did not exhibit brawny induration, excoriation, induration, callus, crepitus, fluctuance, rash, atrophie rakesh, cyanosis, ecchymosis, erythema, hemosiderosis, pallor and rubor. The periwound skin was moist. The periwound skin was not friable and dry/scaly. The temperature of the periwound skin is WNL. Periwound skin does not exhibit signs or symptoms of infection. Local Pulse is Doppler. Additional Information Other devitalized tissue present: biofilm Limited to breakdown of skin: No ASSESSMENT Active Problems ICD-10 (Encounter Diagnosis) L97.512 - Non-pressure chronic ulcer of other part of right foot with fat layer exposed (Encounter Diagnosis) E11.621 - Type 2 diabetes mellitus with foot ulcer (Encounter Diagnosis) I73.9 - Peripheral vascular disease, unspecified (Encounter Diagnosis) E11.42 - Type 2 diabetes mellitus with diabetic polyneuropathy General Notes Ulcer dorsum of right foot has slightly improved measurements, rolled edges The following factors have been identified that may affect wound healing: Devitalized tissue Bioburden Diabetes Peripheral vascular disease Ongoing pressure Moisture imbalance Goals: remove devitalized tissue Remove and prevent biofilm Treat infection Pressure offloading Restore moisture balance Wound closure Prevent recurrence Assess arterial circulation Plan: Debridement, 2nd application of Affinity, dressed with Adaptic and alginate, wear footwear that does not place pressure on the ulcer, follow up in 1 week for recheck. Continue protein supplementation. PROCEDURES Wound #9 Wound #9 (Diabetic Ulcer) is located on the right, dorsal foot. A skin/subcutaneous tissue level surgical debridement with a total area debrided of 0.24 sq cm. was performed by Chucho Wilkerson MD. Subcutaneous was removed along with devitalized tissue: biofilm, exudate and slough. The following instrument(s) were used: curette. Pain control was achieved using EMLA lidocaine/prilocaine 2.5%/2.5%. A time out was conducted prior to the start of the procedure. A minimal amount of Blair Flaherty [id number] 1950 bleeding was controlled with pressure. The procedure was tolerated well with a pain level of 0 throughout and a pain level of 0 following the procedure. Post Debridement Measurements: 0.3cm length x 0.8cm width x 0.4cm depth; with an area of 0.24 sq cm and a volume of 0.096 cubic cm. Additional Information Muscle fascia or bone removed and sent to pathology?: No Wound #9 (Diabetic Ulcer) is located on the right, dorsal foot. A skin substitute procedure was performed using AFFINITY 1.5 X 1.5 by Chucho Wilkerson MD with an application area of 0.24 sq cm. The lot # was [id number] and the order # was [id number]. The product expiration date was 06/26/2023. The product was not fenestrated. 2.01 sq cm of product was wasted due to excess. 0.24 sq cm of product was utilized and was secured with Steri-Strips. Post application, a dressing was applied: adaptic, steri strips, aquacel, Bordered Foam. A time out was conducted prior to the start of the procedure. The procedure was tolerated well with a pain level of 0 throughout and a pain level of 0 following the procedure. Additional Information Normal Saline Lot Number: [id number] Normal Saline Expiration Date: 06/17/2024 Positive response visible from previous application?: Yes Application number:: 2 Is kennel aide's serial number and expiration date recorded on tissue log?: Yes Is wound free of infection and necrosis?: Yes Exposed bone?: No Date of onset and previous therapies documented?: Yes Documentation of ulcer being present for 4 weeks or more?: Yes Are the measurements at baseline, following cessation of conservative tx and prior to application of product documented?: Yes Has the patient stopped smoking or have they had documented tobacco use/smoking cessation counseling?: Yes Is there documentation of concurrent medical management of patient's underlying medical conditions?: Yes PLAN Wound Orders: Wound #9 Right, Dorsal Foot Anesthetic Topical Xylocaine to wound bed - In clinic. Hygiene May shower with wound protected, using a cast protector or plastic bag and tape Cleanser Cleanse Wound with normal saline Dressings Pack wound - Affinity#2 Cover and secure with - adaptic, steristrips, aquacel and Silicone border foam. Change Dressing - leave in place until next visit Physician Review: Reviewed and evaluated labs. Discussed the Plan of Care @ bedside with - patient Reviewed hospital records. I, as the physician, have reviewed the orders scribed by the center RN's and agree. Additional Orders: Follow-Up Appointments Return Appointment - One week. Other information: If you develop fever, chills, increased pain, drainage, redness or swelling please call our office. If after hours, respond to the ER. Should you experience any significant changes in your wound(s) or have any questions regarding your home care instructions please contact the wound Blair Flaherty [id number] 1950 center @ [phone]. If after hours, contact your primary care physician or go to the hospital emergency room. Scribing Attestation I attest, as the nurse, that I scribed these orders for the physician. Plan of Care: 01. ENSURE/ESTABLISH OPTIMAL BLOOD FLOW : - Complete lower extremity assessment - Perform non-invasive vascular testing (i.e. JERRY) and document findings. Consider repeating when wound healing <40% after 30 days of wound care. - Order Vascular Consult for evaluation/treatment and/or non-invasive vascular testing. 02. ASSESS FOR/TREAT INFECTION : - Evaluate for signs and symptoms of infection and document findings. - Obtain culture and sensitivity (CandS) or tissue culture when infection is suspected. (NOTE:) Consider repeating when wound healing <40% after 30 days of wound care. 03. DEBRIDE WEEKLY OR MORE OFTEN PRN : - Evaluate patient in center weekly to assess wound bed and margins for need for debridement. - Mechanical debridement: Stimulate and/or maintain acute phase of wound healing by reducing bacterial burden and devitalized/non-viable tissue. 04. OPTIMIZE GLUCOSE CONTROL and NUTRITION : - Order/review pertinent labs to evaluate renal function, glucose control, and nutritional status. - Complete a nutrition risk assessment. 05. OFFLOADING PLAN : - Evaluate plan for offloading 06. OPTIMIZE HOST FACTORS: - Assess and review patient history for wound etiology, co-morbid conditions, medication regime, and smoking history. 07. DRESSING SELECTION : - Evaluate for dressing-related factors, such as availability, wear time, adaptability and use to better optimize wound healing and patient compliance. - Choose topical treatments and/or dressing based on wound type and appearance, periwound skin condition, wound size and depth, anatomic location, volume of exudate, edema in the lower extremities, and risk or presence of infection. 08. ADVANCED MODALITIES : - Evaluate for appropriateness of Cellular Tissue Product therapy. - Set treatment goals according to patient and/or caregiver???s ability/ compliance. - Re-evaluate plan of care if no evidence of healing (40% in 4 weeks). 09. FALL PREVENTION : - Complete fall assessment. 10. PAIN MANAGEMENT : - Complete pain assessment 11. MEASURABLE GOALS for Wound Healing and/or Hyperbaric Oxygen Therapy : - Decrease pain - Decrease Wound Dimensions - Wound Closure - Improve quality of life 12. DURATION/FREQUENCY of Wound Care Visits : - 1x weekly for 30 days Blair Flaherty [id number] 1950 Electronic Signature(s) Signed By: Date: Chucho Wilkerson MD 06/24/2023 15:40:25 (PT) Entered By: Chucho Wilkerson MD on 06/24/2023 09:18:53 (PT) Blair Flaherty [id number] 1950
== END ==
PROVIDERS: PCP Family Medicine; Referring Provider Physician Assistant; Visit Provider Surgery
DX: L97.512 Non-pressure chronic ulcer of other part of right foot with fat layer exposed (principal); E11.621 Type 2 diabetes mellitus with foot ulcer; I73.9 Peripheral vascular disease, unspecified; R60.0 Localized edema; I25.10 Atherosclerotic heart disease of native coronary artery without angina pectoris; I87.2 Venous insufficiency (chronic) (peripheral); Z87.891 Personal history of nicotine dependence
CPT/HCPCS: 15275; 99212; Q4159

== ENCOUNTER → 2023-07-01 09:18 | Outpatient (CLI) | payer OTHER, SELFPAY ==
[2023-05-24 09:46] VITALS: BMI 38.4
== END ==
LOC: WC 09:18
PROVIDERS: PCP Family Medicine; Referring Provider Physician Assistant; Visit Provider Surgery
DX: L97.512 Non-pressure chronic ulcer of other part of right foot with fat layer exposed (principal); E11.621 Type 2 diabetes mellitus with foot ulcer; I73.9 Peripheral vascular disease, unspecified; E11.42 Type 2 diabetes mellitus with diabetic polyneuropathy; R60.0 Localized edema; R23.4 Changes in skin texture; I25.10 Atherosclerotic heart disease of native coronary artery without angina pectoris
CPT/HCPCS: 11042

== ENCOUNTER → 2023-07-08 09:00 | Outpatient (CLI) | payer OTHER, SELFPAY ==
[2023-05-24 09:46] VITALS: BMI 38.4
== END ==
LOC: WC 09:00
PROVIDERS: PCP Family Medicine; Referring Provider Physician Assistant; Visit Provider Surgery
DX: L97.512 Non-pressure chronic ulcer of other part of right foot with fat layer exposed (principal); E11.621 Type 2 diabetes mellitus with foot ulcer; I73.9 Peripheral vascular disease, unspecified; R60.0 Localized edema; I87.2 Venous insufficiency (chronic) (peripheral)
CPT/HCPCS: 15275; Q4159

== ENCOUNTER → 2023-07-14 11:56 | Outpatient (CLI) | payer OTHER, SELFPAY ==
[2023-05-24 09:46] VITALS: BMI 38.4
== END ==
LOC: WC 11:57
PROVIDERS: PCP Family Medicine; Referring Provider Physician Assistant; Visit Provider Surgery
DX: L97.512 Non-pressure chronic ulcer of other part of right foot with fat layer exposed (principal); E11.621 Type 2 diabetes mellitus with foot ulcer; I73.9 Peripheral vascular disease, unspecified; R60.0 Localized edema; I87.2 Venous insufficiency (chronic) (peripheral)
CPT/HCPCS: 11042

== ENCOUNTER → 2023-07-21 10:41 | Outpatient (CLI) | payer OTHER, SELFPAY ==
[2023-05-24 09:46] VITALS: BMI 38.4
== END ==
LOC: WC 10:42
PROVIDERS: PCP Family Medicine; Referring Provider Physician Assistant; Visit Provider Nurse Practitioner Family
DX: E11.621 Type 2 diabetes mellitus with foot ulcer (principal); L97.512 Non-pressure chronic ulcer of other part of right foot with fat layer exposed; I73.9 Peripheral vascular disease, unspecified; R23.4 Changes in skin texture; I87.2 Venous insufficiency (chronic) (peripheral); I25.10 Atherosclerotic heart disease of native coronary artery without angina pectoris
CPT/HCPCS: 11042; 99213

== ENCOUNTER → 2023-07-28 13:47 | Outpatient (CLI) | payer OTHER, SELFPAY ==
[2023-05-24 09:46] VITALS: BMI 38.4
== END ==
LOC: WC 13:48
PROVIDERS: PCP Family Medicine; Referring Provider Physician Assistant; Visit Provider Surgery
DX: E11.621 Type 2 diabetes mellitus with foot ulcer (principal); L97.512 Non-pressure chronic ulcer of other part of right foot with fat layer exposed; I73.9 Peripheral vascular disease, unspecified; R23.4 Changes in skin texture; I25.10 Atherosclerotic heart disease of native coronary artery without angina pectoris
CPT/HCPCS: 11042

== ENCOUNTER → 2023-08-04 14:23 | Outpatient (CLI) | payer OTHER, SELFPAY ==
[2023-05-24 09:46] VITALS: BMI 38.4
== END ==
LOC: WC 14:34
PROVIDERS: PCP Family Medicine; Visit Provider Surgery
DX: L97.512 Non-pressure chronic ulcer of other part of right foot with fat layer exposed (principal); E11.621 Type 2 diabetes mellitus with foot ulcer; R23.4 Changes in skin texture; I73.9 Peripheral vascular disease, unspecified; I25.10 Atherosclerotic heart disease of native coronary artery without angina pectoris
CPT/HCPCS: 11042

== ENCOUNTER → 2023-08-11 09:57 | Outpatient (CLI) | payer OTHER, SELFPAY ==
[2023-05-24 09:46] VITALS: BMI 38.4
== END ==
LOC: WC 09:58
PROVIDERS: PCP Family Medicine; Referring Provider Physician Assistant; Visit Provider Surgery
DX: L97.512 Non-pressure chronic ulcer of other part of right foot with fat layer exposed (principal); E11.621 Type 2 diabetes mellitus with foot ulcer; I73.9 Peripheral vascular disease, unspecified; E11.42 Type 2 diabetes mellitus with diabetic polyneuropathy; I25.10 Atherosclerotic heart disease of native coronary artery without angina pectoris
CPT/HCPCS: 99212; 99213

== ENCOUNTER → 2023-08-18 10:23 | Outpatient (CLI) | payer OTHER, SELFPAY ==
[2023-05-24 09:46] VITALS: BMI 38.4
== END ==
LOC: WC 10:24
PROVIDERS: PCP Family Medicine; Referring Provider Physician Assistant; Visit Provider Surgery
DX: E11.621 Type 2 diabetes mellitus with foot ulcer (principal); L97.512 Non-pressure chronic ulcer of other part of right foot with fat layer exposed; I73.9 Peripheral vascular disease, unspecified; I25.10 Atherosclerotic heart disease of native coronary artery without angina pectoris; I87.2 Venous insufficiency (chronic) (peripheral); Z87.891 Personal history of nicotine dependence
CPT/HCPCS: 11042; 99213

== ENCOUNTER → 2023-08-20 08:04 | Outpatient (CLI) | payer OTHER, SELFPAY ==
[2023-05-24 09:46] VITALS: BMI 38.4
[2023-08-20 08:41] LABS: Hemoglobin A1C% w Est Avg Glu 7.2 % (4.0-6.0)
[2023-08-20 08:51] LABS: Alanine Aminotransferase 19 IU/L (<50); Albumin 3.8 g/dL (3.5-5.0); Albumin Globulin Ratio 1.4 (1.0-2.8); Alkaline Phosphatase 55 U/L (38-126); Aspartate Aminotransferase 20 IU/L (17-59); BUN Creatinine Ratio 27.3 (6-22); Blood Urea Nitrogen 39 mg/dL (9-20); Calcium 9.1 mg/dL (8.4-10.2); Carbon Dioxide 31 mmol/L (22-32); Chloride 104 mmol/L (98-107); Estimated Glomerular Filt Rate 52 mL/min (>60); Globulin 2.8 g/dL (1.7-4.1); Glucose 138 mg/dL (80-110); HEMOLYSIS < 15 (0-50); Potassium 4.2 mmol/L (3.4-5.1); Sodium 139 mmol/L (137-145); Total Protein 6.6 g/dL (6.3-8.2)
== END ==
PROVIDERS: PCP Family Medicine; Referring Provider Family Medicine; Visit Provider Family Medicine
DX: E11.22 Type 2 diabetes mellitus with diabetic chronic kidney disease (principal); I50.9 Heart failure, unspecified; I10 Essential (primary) hypertension; N18.30 Chronic kidney disease, stage 3 unspecified
CPT/HCPCS: 36415; 80053; 83036

== ENCOUNTER → 2023-08-25 09:13 | Outpatient (CLI) | payer OTHER, SELFPAY ==
[2023-05-24 09:46] VITALS: BMI 38.4
== END ==
LOC: WC 09:14
PROVIDERS: PCP Family Medicine; Referring Provider Physician Assistant; Visit Provider Surgery
DX: E11.621 Type 2 diabetes mellitus with foot ulcer (principal); L97.512 Non-pressure chronic ulcer of other part of right foot with fat layer exposed; I73.9 Peripheral vascular disease, unspecified; I25.10 Atherosclerotic heart disease of native coronary artery without angina pectoris
CPT/HCPCS: 99212; 99213

== ENCOUNTER → 2023-08-30 09:23 | Outpatient (CLI) | payer OTHER, SELFPAY ==
[2023-05-24 09:46] VITALS: BMI 38.4
[2023-08-31 14:50] LABS: Fecal Immunochemical Test Positive (Negative)
== END ==
PROVIDERS: PCP Family Medicine; Referring Provider Family Medicine; Visit Provider Family Medicine
DX: Z12.11 Encounter for screening for malignant neoplasm of colon (principal)
CPT/HCPCS: 82274

== ENCOUNTER → 2023-09-01 09:21 | Outpatient (CLI) | payer OTHER, SELFPAY ==
[2023-05-24 09:46] VITALS: BMI 38.4
== END ==
LOC: WC 09:22
PROVIDERS: PCP Family Medicine; Referring Provider Physician Assistant; Visit Provider Surgery
DX: I73.9 Peripheral vascular disease, unspecified (principal); E11.42 Type 2 diabetes mellitus with diabetic polyneuropathy; I25.10 Atherosclerotic heart disease of native coronary artery without angina pectoris
CPT/HCPCS: 99213

== ENCOUNTER → 2023-09-08 10:41 | Outpatient (CLI) | payer OTHER, SELFPAY ==
[2023-05-24 09:46] VITALS: BMI 38.4
== END ==
LOC: WC 10:42
PROVIDERS: PCP Family Medicine; Referring Provider Physician Assistant; Visit Provider Surgery
DX: E11.42 Type 2 diabetes mellitus with diabetic polyneuropathy (principal); I73.9 Peripheral vascular disease, unspecified; I87.2 Venous insufficiency (chronic) (peripheral); I25.10 Atherosclerotic heart disease of native coronary artery without angina pectoris
CPT/HCPCS: 99213

== ENCOUNTER → 2023-09-22 08:48 | Outpatient (CLI) | payer OTHER, SELFPAY ==
[2023-05-24 09:46] VITALS: BMI 38.4
== END ==
PROVIDERS: PCP Family Medicine; Referring Provider Physician Assistant; Visit Provider Surgery
DX: Z09 Encounter for follow-up examination after completed treatment for conditions other than malignant neoplasm (principal); Z86.31 Personal history of diabetic foot ulcer
CPT/HCPCS: 99211; 99213

== ENCOUNTER 2023-10-29 12:04 | Day surgery (SDC) | payer OTHER, SELFPAY ==
[2023-05-24 09:46] VITALS: BMI 38.4
--- NOTE | 2023-10-29 | PATH_ITS ---
[facility] Accession Number: [id number] No. of containers..01 Tissue . 01 Material submitted: . colon - TRANSVERSE POLYP . 01 Diagnosis: TRANSVERSE COLON POLYP: Tubular adenoma. [facility] 11/03/2023 1114 Local . 01 Electronically signed: . Dioni Lora MD, PhD, Pathologist NPI- [id number] . 01 Gross description: . TRANSVERSE POLYP: Received in formalin are 2 fragment(s) of farias, soft tissue measuring 0.4 x 0.3 x 0.2 cm to 0.6 x 0.6 x 0.3 cm submitted entirely in 1 cassette(s) /[facility] 11/01/2023 1938 Local . 01 Pathologist provided ICD-10: D12.3 . 01 CPT . 440769 Specimen Comment: A courtesy copy of this report has been sent to [phone] Performed at: [address] [id number] MD Arias Ngo MD Phone: [phone]
[2023-10-29] MEDS: LACTATED RINGERS 1,000 ML 150 ML IV (12:48)
[2023-10-29 12:57] VITALS: BP 132/78; PULSE 68; RESP 16; TEMP 36.1; O2SAT 99; BMI 33.6
--- NOTE | 2023-10-29 13:05 | PM.HP.1 ---
History of Present Illness History of Present Illness Date Patient Seen: 10/29/23 Time Patient Seen: 13:05 Chief complaint: Screening Colonoscopy Narrative: 73-year-old man with a positive fecal immunochemical test here for diagnostic colonoscopy. Last colonoscopy 5 or 6 years ago. No abdominal concerns today. No family history of intestinal malignancy. [facility] Medical History Ulcer of right ankle Encounter for subsequent annual wellness visit (AWV) in Medicare patient Peripheral vascular disease in diabetes mellitus CKD stage 3 secondary to diabetes Bladder cancer Type 2 diabetes mellitus with chronic kidney disease, without long-term current use of insulin CHF (congestive heart failure) Cardiac arrest with ventricular fibrillation Disc degeneration (~2003) Nephrolithiasis (Unknown) Psoriasis (Unknown) History of diverticulitis (Unknown) Hyperlipidemia (Unknown) Carotid artery disease (Unknown) Hypertension (Unknown) Atrial fibrillation Pure hypercholesterolemia (12/02/15) Essential hypertension (12/02/15) Coronary artery disease involving [place] coronary artery of [place] heart without angina pectoris (12/02/15) Surgical History H/O transurethral destruction of bladder lesion AICD (automatic cardioverter/defibrillator) present (~06/2020) Status post tonsillectomy and adenoidectomy Status post knee surgery Status post coronary artery bypass graft Social History marital status: household members: spouse occupational status: employed Smoking Status: Former smoker Tobacco: How many years used: 50 alcohol intake: current substance use type: marijuana Meds Home Medications and Allergies Home Medications Medication Instructions Recorded Confirmed Type docusate sodium 100 mg capsule 100 mg PO DAILY 09/29/17 08/27/23 History terazosin 10 mg capsule 10 mg PO QHS 09/29/17 08/27/23 History niacin 500 mg tablet 500 mg PO BID 03/15/18 08/27/23 History nitroglycerin 0.4 mg sublingual 0.4 mg sublingual Q5-15M PRN Chest 03/15/18 08/27/23 History tablet Pain rosuvastatin 40 mg tablet 40 mg PO DAILY 03/15/18 08/27/23 History ezetimibe 10 mg tablet (Zetia) 10 mg PO DAILY 02/23/20 08/27/23 History triamcinolone acetonide 0.1 % 1 applic topical BID 05/03/20 08/27/23 History topical cream sacubitril 24 mg-valsartan 26 mg 1 tab PO BID #60 tabs 04/04/22 08/27/23 Rx tablet (Entresto) spironolactone 25 mg tablet 12.5 mg PO DAILY 05/04/22 08/27/23 History torsemide 20 mg tablet 20 mg PO DAILY 08/11/22 08/27/23 History amiodarone 200 mg tablet 100 mg PO DAILY 02/15/23 10/29/23 History fluorouracil 5 % topical cream 1 applic topical BID 02/15/23 08/27/23 History (Efudex) metoprolol succinate 50 mg 75 mg PO BID 02/15/23 10/29/23 History tablet,extended release 24 hr mupirocin 2 % topical ointment 1 applic topical BID 02/15/23 08/27/23 History risankizumab-rzaa 150 mg/mL 150 mg SUBCUT Q12W 02/15/23 08/27/23 History subcutaneous pen injector (Angelica) omeprazole 20 mg tablet,delayed 20 mg PO DAILY #90 tabs 03/08/23 08/27/23 Rx release blood sugar diagnostic #100 ea 03/22/23 08/27/23 Rx blood-glucose meter #1 ea 03/22/23 08/27/23 Rx lancets 28 gauge #100 ea 03/22/23 08/27/[address] Disabled [address] permit #1 ea 05/24/23 08/27/23 Rx apixaban 5 mg tablet (Eliquis) 5 mg PO BID #180 tabs 05/24/23 10/29/23 Rx empagliflozin 25 mg tablet 25 mg PO DAILY diabetes/heart #90 05/24/23 08/27/23 Rx (Jardiance) tabs semaglutide 0.25 mg or 0.5 mg (2 0.25 mg (0.368 mL) SUBCUT QWEEK #9 08/27/23 08/27/23 Rx mg/3 mL) subcutaneous pen injector mL (Ozempic) sodium,potassium,mag sulfates 17.5 See Rx Instructions PO .COMPLEX 09/30/23 Rx gram-3.13 gram-1.6 gram oral soln #354 mL (Suprep Bowel Prep Kit) sucralfate 1 gram tablet 1 g PO BID #180 tabs 10/05/23 Rx Allergies Allergy/AdvReac Type Severity Reaction Status Date / Time methyltrexate AdvReac Flushing Uncoded 10/29/23 12:52 Exam Vital Signs (past 8 hours): - 10/29/23 12:57 Temperature 97 F L Pulse Rate 68 Respiratory Rate 16 Blood Pressure 132/78 Pulse Oximetry 99 Oxygen Delivery Method Room Air Oxygen Delivery Method Room Air Narrative Exam Narrative: General adult man alert oriented no acute distress Chest nonlabored respiration Extremities warm well perfused Assessment & Plan Assessment & Plan narrative: The patient requires colorectal screening and colonoscopy is recommended. Technical details were discussed. Risks, benefits, alternatives explained. Risks including but not limited to myocardial infarction, aspiration, bleeding, pain, missed lesion, incomplete examination, need for further radiographic studies, intestinal injury, and need for major abdominal surgery were discussed. All questions were answered to their satisfaction, and they are in agreement with this plan.
[2023-10-29 13:35] VITALS: BP 106/67; PULSE 72; RESP 16; TEMP 36.2; O2SAT 96
[2023-10-29 13:40] VITALS: BP 105/67; PULSE 70; RESP 16; O2SAT 96
--- NOTE | 2023-10-29 13:43 | P.OP.COLON_ITS ---
Operative Date/Time/Diagnoses Date of procedure: 10/29/23 Time of procedure: 13:43 Pre-op diagnosis: Positive fecal immunochemical test Post-op diagnosis: other (Colonic polyps x2) Procedure & Clinicians Study performed: Diagnostic Colonoscopy and polypectomy Same procedure as scheduled: Yes Indications: Positive fit Surgeon: Alexis Gannon Procedure Notes Procedure in detail: The history and physical was performed/updated and the patient is ASA class is 3. The procedure was discussed in detail with the patient. Potential risks complications including infection, bleeding, missed diagnosis, perforation, need for surgery, and were explained. Their questions were answered and informed consent was obtained. Patient was brought to the procedure room and placed standard monitoring equipment. The patient's vital signs were monitored continuously throughout the entire procedure. Prior to starting time-out was performed. The patient was placed in the left lateral recumbent position. Procedural sedation was administered by anesthesia. Examination began with a thorough inspection of the perianal area there was no evidence of fissures, fistulae, external hemorrhoids or cutaneous malignancy. The colonoscopy scope was then placed into the anal canal and was advanced to the cecum, which was identified by the ileocecal valve, the appendiceal orifice and the confluence of the taenia. The scope was then slowly withdrawn examining colon thoroughly in all directions, irrigating it of any residual stool. The scope was retroflexed within the rectum The patient tolerated the procedure well. They will be discharged once criteria are met. The prep was of fair quality. The withdrawl time was 7 minutes. FINDINGS * Transverse colon.5 mm polyp x2 removed with cold snare. * Diverticulosis Specimen(s): other (Transverse colon polyp) Complications: none Impression: Colonic polyp x2 Post-procedure Recommendations: High fiber diet Plan for aftercare: Follow-up is dependent on pathology findings Disposition: same day surgery
[2023-10-29 13:45] VITALS: BP 112/71; PULSE 66; RESP 16; O2SAT 97
[2023-10-29 13:50] VITALS: BP 101/66; PULSE 66; RESP 12; O2SAT 98
[2023-10-29 14:02] VITALS: BP 107/62; PULSE 67; RESP 16; O2SAT 98
== END 2023-10-29 14:05 | disposition home or self-care (01) ==
PROVIDERS: PCP Family Medicine; Referring Provider Surgery; Visit Provider Surgery
PROC: 0DJD8ZZ Inspection of Lower Intestinal Tract, Via Natural or Artificial Opening Endoscopic (ICD-10-PCS; CPT 45378; principal; 2023-10-29 13:00)
DX: Z12.11 Encounter for screening for malignant neoplasm of colon (principal); R19.5 Other fecal abnormalities; K57.30 Diverticulosis of large intestine without perforation or abscess without bleeding; D12.3 Benign neoplasm of transverse colon
CPT/HCPCS: 45385; J2704

== ENCOUNTER → 2023-11-05 07:39 | Outpatient (CLI) | payer OTHER, SELFPAY ==
[2023-05-24 09:46] VITALS: BMI 38.4
[2023-11-05 08:27] LABS: Add Manual Diff / Slide Review NO; Basophils Absolute Auto 0 /uL (0-100); Basophils Percent Auto 0.7 % (0-2); Eosinophils Absolute Auto 100 /uL (0-450); Eosinophils Percent Auto 1.9 % (2-4); Hematocrit 48.7 % (41-53); Hemoglobin 16.3 g/dL (13.5-17.5); Lymphocytes Absolute Auto 2100 /uL (1100-4500); Lymphocytes Percent Auto 34.1 % (25-40); Mean Corpuscular HGB Conc 33.4 % (30-36); Mean Corpuscular Hemoglobin 29.8 PG (26-34); Mean Corpuscular Volume 89.1 fL (80-100); Monocytes Absolute Auto 500 /uL (0-900); Monocytes Percent Auto 7.9 % (3-14); Neutrophils Absolute Auto 3500 /uL (1500-7000); Neutrophils Percent Auto 55.4 % (50-75); Platelet Count 120 X10^3/uL (150-400); Red Blood Cell Count 5.46 X10^6/uL (4.5-5.9); Red Cell Distribution Width 15.5 % (11.6-14.8); White Blood Cell Count 6.3 X10^3/uL (4.5-11.0)
[2023-11-05 08:40] LABS: INR 1.3 (0.9-1.3); Prothrombin Time 14.4 SECONDS (9.4-12.5)
[2023-11-05 09:24] LABS: BUN Creatinine Ratio 21.6 (6-22); Blood Urea Nitrogen 30 mg/dL (9-20); Calcium 9.1 mg/dL (8.4-10.2); Carbon Dioxide 29 mmol/L (22-32); Chloride 105 mmol/L (98-107); Estimated Glomerular Filt Rate 54 mL/min (>60); Glucose 133 mg/dL (80-110); HEMOLYSIS < 15 (0-50); Potassium 4.4 mmol/L (3.4-5.1); Sodium 137 mmol/L (137-145)
== END ==
LOC: LAB 07:40
PROVIDERS: PCP Family Medicine; Referring Provider Radiology Diagnostic Radiology; Visit Provider Radiology Diagnostic Radiology
DX: I73.9 Peripheral vascular disease, unspecified (principal)
CPT/HCPCS: 36415; 80048; 85025; 85610

== ENCOUNTER → 2023-11-26 10:12 | Outpatient (CLI) | payer OTHER, SELFPAY ==
[2023-05-24 09:46] VITALS: BMI 38.4
[2023-11-26 10:55] LABS: Hemoglobin A1C% w Est Avg Glu 6.5 % (4.0-6.0)
== END ==
PROVIDERS: PCP Family Medicine; Referring Provider Family Medicine; Visit Provider Family Medicine
DX: E11.22 Type 2 diabetes mellitus with diabetic chronic kidney disease (principal); N18.30 Chronic kidney disease, stage 3 unspecified
CPT/HCPCS: 36415; 83036

== ENCOUNTER → 2024-01-06 09:33 | Outpatient (CLI) | payer OTHER, SELFPAY ==
[2023-05-24 09:46] VITALS: BMI 38.4
[2024-01-06 11:55] LABS: Alanine Aminotransferase 16 IU/L (<50); Albumin 3.7 g/dL (3.5-5.0); Albumin Globulin Ratio 1.6 (1.0-2.8); Alkaline Phosphatase 41 U/L (38-126); Aspartate Aminotransferase 22 IU/L (17-59); BUN Creatinine Ratio 26.4 (6-22); Bilirubin Total 1.2 mg/dL (0.2-1.3); Blood Urea Nitrogen 39 mg/dL (9-20); Calcium 8.9 mg/dL (8.4-10.2); Carbon Dioxide 24 mmol/L (22-32); Chloride 105 mmol/L (98-107); Estimated Glomerular Filt Rate 50 mL/min (>60); Globulin 2.3 g/dL (1.7-4.1); Glucose 137 mg/dL (80-110); HEMOLYSIS 21 (0-50); Potassium 4.6 mmol/L (3.4-5.1); Sodium 137 mmol/L (137-145)
[2024-01-06 12:21] LABS: Thyroid Stimulating Hormone 1.31 uIU/mL (0.47-4.68)
== END ==
PROVIDERS: PCP Family Medicine; Referring Provider Nurse Practitioner; Visit Provider Nurse Practitioner
DX: Z79.899 Other long term (current) drug therapy (principal)
CPT/HCPCS: 36415; 80053; 84443

== ENCOUNTER → 2024-02-19 10:38 | Outpatient (CLI) | payer OTHER, SELFPAY ==
[2023-05-24 09:46] VITALS: BMI 38.4
== END ==
PROVIDERS: PCP Family Medicine; Referring Provider Family Medicine; Visit Provider Family Medicine
DX: E11.22 Type 2 diabetes mellitus with diabetic chronic kidney disease (principal)
CPT/HCPCS: 36415; 83036

== ENCOUNTER → 2024-02-25 09:52 | Outpatient (CLI) | payer OTHER, SELFPAY ==
[2023-05-24 09:46] VITALS: BMI 38.4
== END ==
PROVIDERS: PCP Family Medicine; Visit Provider Family Medicine
DX: E11.22 Type 2 diabetes mellitus with diabetic chronic kidney disease (principal); N18.30 Chronic kidney disease, stage 3 unspecified; R35.0 Frequency of micturition
CPT/HCPCS: 87086

== ENCOUNTER → 2024-05-01 13:13 | Outpatient (CLI) | payer OTHER, SELFPAY ==
[2023-05-24 09:46] VITALS: BMI 38.4
== END ==
PROVIDERS: PCP Family Medicine; Referring Provider Dermatology; Visit Provider Dermatology
DX: L40.0 Psoriasis vulgaris (principal)
CPT/HCPCS: 36415; 86480

== ENCOUNTER → 2024-05-29 11:14 | Outpatient (CLI) | payer OTHER, SELFPAY ==
[2023-05-24 09:46] VITALS: BMI 38.4
[2024-05-29 12:25] LABS: Hemoglobin A1C% w Est Avg Glu 6.2 % (4.0-6.0)
[2024-05-29 12:47] LABS: BUN Creatinine Ratio 26.7 (6-22); Blood Urea Nitrogen 39 mg/dL (9-20); Carbon Dioxide 32 mmol/L (22-32); Chloride 101 mmol/L (98-107); Estimated Glomerular Filt Rate 51 mL/min (>60); Glucose 132 mg/dL (80-110); HEMOLYSIS < 15 (0-50); Potassium 4.9 mmol/L (3.4-5.1); Sodium 138 mmol/L (137-145)
== END ==
LOC: LAB 11:15
PROVIDERS: PCP Family Medicine; Referring Provider Family Medicine; Visit Provider Family Medicine
DX: E11.22 Type 2 diabetes mellitus with diabetic chronic kidney disease (principal); I50.22 Chronic systolic (congestive) heart failure; N18.30 Chronic kidney disease, stage 3 unspecified
CPT/HCPCS: 36415; 80048; 83036

== ENCOUNTER → 2024-07-20 07:44 | Outpatient (CLI) | payer OTHER, SELFPAY ==
[2023-05-24 09:46] VITALS: BMI 38.4
[2024-07-20 09:23] LABS: Albumin 4.1 g/dL (3.5-5.0); Albumin Globulin Ratio 1.6 (1.0-2.8); Alkaline Phosphatase 44 U/L (38-126); BUN Creatinine Ratio 22.4 (6-22); Blood Urea Nitrogen 37 mg/dL (9-20); Calcium 9.5 mg/dL (8.4-10.2); Carbon Dioxide 29 mmol/L (22-32); Chloride 103 mmol/L (98-107); Cholesterol 118 mg/dL (140-199); Estimated Glomerular Filt Rate 44 mL/min (>60); Globulin 2.5 g/dL (1.7-4.1); Glucose 125 mg/dL (80-110); HDL Cholesterol 33 mg/dL (40-60); HEMOLYSIS < 15 (0-50); LDL Cholesterol Calculated 50 mg/dL (<100); Potassium 4.9 mmol/L (3.4-5.1); Sodium 138 mmol/L (137-145); Total Protein 6.6 g/dL (6.3-8.2); Triglycerides 176 mg/dL (35-150)
[2024-07-20 09:37] LABS: Thyroid Stimulating Hormone 1.51 uIU/mL (0.47-4.68)
[2024-07-20 09:41] LABS: Alanine Aminotransferase 18 IU/L (<50); Aspartate Aminotransferase 22 IU/L (17-59)
== END ==
PROVIDERS: PCP Family Medicine; Referring Provider Internal Medicine Cardiovascular Disease; Visit Provider Internal Medicine Cardiovascular Disease
DX: E78.00 Pure hypercholesterolemia, unspecified (principal); Z79.899 Other long term (current) drug therapy
CPT/HCPCS: 36415; 80053; 80061; 84443

== ENCOUNTER → 2024-08-03 13:17 | Outpatient (CLI) | payer OTHER, SELFPAY ==
[2023-05-24 09:46] VITALS: BMI 38.4
== END ==
PROVIDERS: PCP Family Medicine; Referring Provider Internal Medicine Cardiovascular Disease; Visit Provider Internal Medicine Cardiovascular Disease
DX: Z79.899 Other long term (current) drug therapy (principal); Z87.891 Personal history of nicotine dependence; R94.2 Abnormal results of pulmonary function studies; I50.22 Chronic systolic (congestive) heart failure; I48.0 Paroxysmal atrial fibrillation; I65.23 Occlusion and stenosis of bilateral carotid arteries; Z95.810 Presence of automatic (implantable) cardiac defibrillator; Z95.1 Presence of aortocoronary bypass graft
CPT/HCPCS: 94060; 94726; 94729

== ENCOUNTER → 2024-08-04 07:20 | Outpatient (CLI) | payer OTHER, SELFPAY ==
[2023-05-24 09:46] VITALS: BMI 38.4
--- NOTE | 2024-08-04 07:22 | DI.US.S_ITS ---
PROCEDURE: US CAROTID DOPPLER BI INDICATIONS: BILAT ARTERY STENOSIS TECHNIQUE: Color and pulse Doppler interrogation was performed of both carotid systems, with image documentation and velocity measurements. COMPARISON: None. FINDINGS: Stenosis calculations are based on SRU (Society of Radiologists in Ultrasound) criteria. Right side: Brachial blood pressure: 94 x 58 mm Hg. Common carotid artery peak systolic velocity: 87 cm/sec. Internal carotid artery peak systolic velocity: 36 cm/sec. Internal carotid artery end diastolic velocity: 9 cm/sec. External carotid artery peak systolic velocity: 85 cm/sec. ICA/CCA peak systolic ratio: 0.4 . Tomas scale imaging description: Calcified plaque Percent internal carotid artery stenosis: Mild less than 50% . Vertebral artery: Flow direction is antegrade. Left side: Brachial blood pressure: 88/58 mm Hg. Common carotid artery peak systolic velocity: 76 cm/sec. Internal carotid artery peak systolic velocity: 62 cm/sec. Internal carotid artery end diastolic velocity: 17 cm/sec. External carotid artery peak systolic velocity: 252 cm/sec. ICA/CCA peak systolic ratio: 0.7 . Tomas scale imaging description: Calcified plaque Percent internal carotid artery stenosis: Mild less than 50% . Vertebral artery: Flow direction is antegrade. IMPRESSION: 1. In the right carotid artery, there is mild less than 50% stenosis based on peak systolic velocity criteria. 2. In the left carotid artery, there is mild less than 50% stenosis based on peak systolic velocity criteria. 3. Antegrade vertebral arteries. Dictated by: Linda Jaime MD, PhD on 08/04/2024 at 12:07 Approved by: Linda Jaime MD, PhD on 08/04/2024 at 12:09
== END ==
LOC: US 07:20
PROVIDERS: PCP Family Medicine; Referring Provider Internal Medicine Cardiovascular Disease; Visit Provider Internal Medicine Cardiovascular Disease
DX: I65.23 Occlusion and stenosis of bilateral carotid arteries (principal)
CPT/HCPCS: 93880

== ENCOUNTER → 2024-08-24 07:45 | Outpatient (CLI) | payer OTHER, SELFPAY ==
[2023-05-24 09:46] VITALS: BMI 38.4
[2024-08-24 08:41] LABS: Hemoglobin A1C% w Est Avg Glu 5.7 % (4.0-6.0)
[2024-08-24 09:01] LABS: Cholesterol 110 mg/dL (140-199); HDL Cholesterol 32 mg/dL (40-60); LDL Cholesterol Calculated 37 mg/dL (<100); Triglycerides 205 mg/dL (35-150)
== END ==
PROVIDERS: PCP Family Medicine; Referring Provider Family Medicine; Visit Provider Family Medicine
DX: E11.22 Type 2 diabetes mellitus with diabetic chronic kidney disease (principal); N18.30 Chronic kidney disease, stage 3 unspecified; I50.22 Chronic systolic (congestive) heart failure; E78.00 Pure hypercholesterolemia, unspecified; I13.0 Hypertensive heart and chronic kidney disease with heart failure and stage 1 through stage 4 chronic kidney disease, or unspecified chronic kidney disease
CPT/HCPCS: 36415; 80061; 83036

== ENCOUNTER → 2024-11-29 07:39 | Outpatient (CLI) | payer OTHER, SELFPAY ==
[2023-05-24 09:46] VITALS: BMI 38.4
[2024-11-29 08:22] LABS: Hemoglobin A1C% w Est Avg Glu 5.8 % (4.0-6.0)
[2024-11-29 08:24] LABS: Blood Urea Nitrogen 31 mg/dL (9-20); Calcium 8.9 mg/dL (8.4-10.2); Carbon Dioxide 29 mmol/L (22-32); Chloride 102 mmol/L (98-107); Estimated Glomerular Filt Rate 51 mL/min (>60); Glucose 144 mg/dL (70-99); HEMOLYSIS 17 (0-50); Potassium 4.5 mmol/L (3.4-5.1); Sodium 137 mmol/L (137-145)
== END ==
PROVIDERS: PCP Family Medicine; Referring Provider Family Medicine; Visit Provider Family Medicine
DX: E11.22 Type 2 diabetes mellitus with diabetic chronic kidney disease (principal); N18.30 Chronic kidney disease, stage 3 unspecified; I50.9 Heart failure, unspecified; R12 Heartburn; E78.5 Hyperlipidemia, unspecified
CPT/HCPCS: 36415; 80048; 83036

== ENCOUNTER → 2025-02-21 06:54 | Outpatient (CLI) | payer OTHER, SELFPAY ==
[2023-05-24 09:46] VITALS: BMI 38.4
--- NOTE | 2025-02-21 06:56 | DI.ECHO.S_ITS ---
[facility] : : [address] : : [place] : : [id number] : : Phone: [phone] Echocardiogram Report + + :Name: CHAVO ACUÑA Study Date: 02/21/2025 Height: 72 in : :Hospital ReadingLocation: Weight: 215 lb: : Gender: Male BSA: 2.2 m2 : :: 1950 Age: 74 yrs : :Reason For Study: AORTIC VALVE REGURITATION : :Ordering Physician: RUFINO, : :LENIN Performed By: Jen Jeffries : :Referring: LENIN JOY : + + Interpretation Summary The patient was in normal sinus rhythm during the exam. The patient had frequent PVCs during the exam. The left ventricle is normal in size. There is mild-moderate concentric left ventricular hypertrophy. The ejection fraction is estimated to be 35-40%. Previous LVEF 40 to 45%. There is moderate global hypokinesis of the left ventricle. There is a significant dyssynchronous contraction pattern, consistent with a conduction abnormality. The right ventricle is normal in size and function. There is a pacemaker lead in the right ventricle. The aortic valve is trileaflet. There is mildly reduced leaflet mobility. There is no hemodynamically significant valvular aortic stenosis. There is mild to moderate aortic regurgitation. In the past, aortic regurgitation in the [id number] range. There is mild tricuspid regurgitation. The right ventricular systolic pressure is estimated to be at least 33 mmHg based on an estimated right atrial pressure of 8 mm Hg. Procedure: A two-dimensional transthoracic echocardiogram with color flow and Doppler was performed. The study quality was technically difficult. Comparison is made with the echocardiogram of 03/13/2023. A contrast injection of Definity was performed to improve assessment of LV function. The patient had frequent PVCs during the exam. The patient was in normal sinus rhythm during the exam. Left Ventricle: There is mild-moderate concentric left ventricular hypertrophy. The left ventricle is normal in size. There is no thrombus. The ejection fraction is estimated to be 35-40%. There is moderate global hypokinesis of the left ventricle. There is a significant dyssynchronous contraction pattern, consistent with a conduction abnormality. MV E/A: 0.62 Med Peak E' Connor: 5.4 cm/sec E/E' med: 10.5. Right Ventricle: The right ventricle is normal in size and function. There is a pacemaker lead in the right ventricle. Atria: The left atrium is mildly dilated. The left atrium has mildly increased in size since the prior echo exam. There is a catheter/pacemaker lead seen in the right atrium. Right atrial size is normal. There is no Doppler evidence for an interatrial shunt. Mitral Valve: There is mild mitral annular calcification. The mitral valve leaflets appear moderately thickened. There is mild mitral regurgitation. Aortic Valve: The aortic valve is mildly calcified. There is discrete nodular thickening of the left coronary cusp. The aortic valve is trileaflet. There is mildly reduced leaflet mobility. The peak aortic velocity is 1.9 m/sec. The aortic valve mean gradient is 7 mmHg. The calculated aortic valve area is 1.7 cm2. There is no hemodynamically significant valvular aortic stenosis. There is mild to moderate aortic regurgitation. Tricuspid Valve: There is mild tricuspid regurgitation. The right ventricular systolic pressure is estimated to be at least 33 mmHg based on an estimated right atrial pressure of 8 mm Hg. Pulmonic Valve: The pulmonic valve leaflets are thin and pliable; valve motion is normal. There is mild pulmonic regurgitation. Great Vessels: The aortic root is borderline dilated. The dimensions of the ascending aorta are normal. The IVC is dilated (diameter is greater than 2.1 cm) yet it collapses greater than 50% with a sniff. This suggests a right atrial pressure of 8 mm Hg. Pericardium/ Pleura There is no pericardial effusion. There is no pleural effusion. MMode/2D Measurements & Calculations LVIDd: 4.5 cm LVOT diam: 2.2 cm LVIDs: 3.8 cm Ao root diam: 4.1 cm FS: 16.1 % asc Aorta Diam: 3.5 cm EPSS: 1.8 cm Ao Arch Diam (Prox Trans): 2.7 cm IVSd: 1.4 cm LVPWd: 1.2 cm LV hartley. diameter/BSA (cm/m^2): 2.1 LV sys. diameter/BSA (cm/m^2): 1.7 LA A2 area: 23.9 cm2 RA long axis: 5.9 cm LA A4 area: 25.8 cm2 RA area: 18.7 cm2 LA length (vol): 6.6 cm RA vol: 50.8 ml LA vol: 80.0 ml RA : 23.1 ml/m2 LA vol index: 36.4 ml/m2 IVC diam: 2.1 cm RVD1 (basal): 3.8 cm RVD2 (mid): 3.4 cm TAPSE: 2.1 cm Doppler Measurements & Calculations Ao V2 max: 190.6 cm/sec LVOT Max Connor: 80.4 cm/sec Ao V2 mean: 125.6 cm/sec LV V1 max P.6 mmHg Ao max P.9 mmHg LV V1 VTI: 18.0 cm Ao mean P.7 mmHg CECILLE(I,D): 1.8 cm2 Ao V2 VTI: 39.8 cm CECILLE(V,D): 1.7 cm2 sev ratio: 0.45 CECILLE indexed to BSA (cm^2/m^2): 0.82 AI P1/2t: 1068 msec AI dec slope: 90.3 cm/sec2 MV E max connor: 56.5 cm/sec TR max connor: 251.2 cm/sec MV A max connor: 91.3 cm/sec TR max P.2 mmHg MV E/A: 0.62 PA V2 max: 85.3 cm/sec Med Peak E' Connor: 5.4 cm/sec PA V2 mean: 55.5 cm/sec E/E' med: 10.5 PA mean P.4 mmHg Lat Peak E' Connor: 7.4 cm/sec PA pr(Accel): 30.2 mmHg E/E' lat: 7.6 E/e' average: 9.0 MV dec time: 0.21 sec SV(LVOT): 71.4 ml Reading Physician:05:17 PM
[2025-02-21 08:49] LABS: Hemoglobin A1C% w Est Avg Glu 5.9 % (4.0-6.0)
[2025-02-21 08:54] LABS: Alanine Aminotransferase 32 IU/L (<50); Albumin 3.6 g/dL (3.5-5.0); Albumin Globulin Ratio 1.4 (1.0-2.8); Alkaline Phosphatase 54 U/L (38-126); Blood Urea Nitrogen 24 mg/dL (9-20); Calcium 8.9 mg/dL (8.4-10.2); Carbon Dioxide 25 mmol/L (22-32); Chloride 106 mmol/L (98-107); Estimated Glomerular Filt Rate 60 mL/min (>60); Globulin 2.5 g/dL (1.7-4.1); Glucose 106 mg/dL (70-99); HEMOLYSIS < 15 (0-50); Potassium 4.3 mmol/L (3.4-5.1); Sodium 139 mmol/L (137-145); Total Protein 6.1 g/dL (6.3-8.2)
[2025-02-21 09:28] LABS: Thyroid Stimulating Hormone 1.93 uIU/mL (0.47-4.68)
== END ==
PROVIDERS: PCP Family Medicine; Referring Provider Internal Medicine Cardiovascular Disease; Visit Provider Internal Medicine Cardiovascular Disease
DX: I08.3 Combined rheumatic disorders of mitral, aortic and tricuspid valves (principal); I77.810 Thoracic aortic ectasia; E11.22 Type 2 diabetes mellitus with diabetic chronic kidney disease; N18.30 Chronic kidney disease, stage 3 unspecified; Z79.899 Other long term (current) drug therapy; Z95.0 Presence of cardiac pacemaker
CPT/HCPCS: 36415; 80053; 83036; 84443; C8929; Q9957